=== PATIENT | female | born 1960 | race African-American/Black ===

== ENCOUNTER 2019-11-20 12:48 | Inpatient (IN) ==
[2019-11-20 13:15] LABS: Hematocrit (blood only) 29.9 % (37-47); Hemoglobin 9.5 g/dL (12.0-16.0); Mean Corpuscular Hemoglobin 27.1 pg (25-34); Mean Corpuscular Hgb Conc 31.8 g/dL (32-36); Mean Corpuscular Volume 85.2 fL (80-100); Platelet Count 382 K/uL (130-400); RDW Coefficient of Variation 15.6 % (11.5-14.5); RDW Standard Deviation 48.2 fL (36.4-46.3); Red Blood Count 3.51 M/uL (4.2-5.4); White Blood Count 13.82 K/uL (4.8-10.8)
[2019-11-20] MEDS ORDERED: SODIUM CHLORIDE 0.9% 1000ML 1,000 ML IV SCH (13:15)
[2019-11-20] MEDS ORDERED: levETIRAcetam 1,000 MG in 0.9 % SODIUM CHLORIDE 100 ML IV ONE (13:15)
[2019-11-20 13:20] LABS: iSTAT Creatinine 1.6 mg/dl (0.6-1.3); iSTAT Hemoglobin 9.5 g/dl (12.0-16.0); iSTAT Ionized Calcium 1.21 mmol/l (1.12-1.32); iSTAT Potassium 4.2 mmol/L (3.3-5.0)
--- NOTE | 2019-11-20 13:25 | XRay Report ---
XR chest 1V portable CLINICAL HISTORY: 59 years-old Female presenting with weakness. TECHNIQUE: Portable upright AP view of the chest was obtained. COMPARISON: None. FINDINGS: Atherosclerosis of the aortic arch. Cardiac silhouette top normal in size. Mild pulmonary vascular pr ominence. Elevation of the bilateral hemidiaphragms. No focal opacity. No large effusion or pneumotho rax. Osteopenia may be present. Gaseous distention of large bowel beneath the left hemidiaphragm. IMPRESSION: 1. Mildly low lung volume secondary to elevated hemidiaphragms. 2. Mild volume overload may be present. ACT 112: Negative or not required by law. Electronically signed by: Porfirio Prieto M.D. 11/20/2019 1:24 PM
[2019-11-20 13:30] LABS: Alanine Aminotransferase 18 U/L (12-78); Albumin Level 2.7 gm/dl (3.4-5.0); Aspartate Aminotransferase 21 U/L (15-37); BUN Creatinine Ratio 23.3 (10-20); Blood Urea Nitrogen 42 mg/dl (7-18); Calcium 9.4 mg/dl (8.5-10.1); Carbon Dioxide 24 mmol/L (21-32); Chloride 102 mmol/L (98-107); Est GFR (African American) 34.6; Est GFR (Non-African American) 29.9; Glucose 206 mg/dl (70-99); Magnesium 2.6 mg/dl (1.8-2.4); Potassium 4.2 mmol/L (3.5-5.1); Sodium 136 mmol/L (136-145)
[2019-11-20 13:40] LABS: Albumin Globulin Ratio 0.6 (0.9-2); Alkaline Phosphatase 59 U/L (45-117); Bilirubin,Total 0.6 mg/dl (0.2-1); Globulin 4.2 gm/dl (2.5-4.0); Thyroid Stimulating Hormone 0.878 uIu/ml (0.300-4.500); Total Protein 6.9 gm/dl (6.4-8.2); Troponin I < 0.015 ng/ml (0-0.045)
--- NOTE | 2019-11-20 13:41 | Emergency Department Note ---
Impression & Plan Sepsis, Acute UTI (urinary tract infection), BAHMAN (acute kidney injury), Elevated lactic acid level ED Provider Note NAME: JOSEPH SMITH AGE: 59 SEX: F : 1960 ARRIVES VIA: Ambulance INFORMANT: Patient, ED PROVIDER(S): Ney Del Angel MD Chief Complaint: Altered mental status HPI: Patient does present from [facility]. History is limited secondary to acute mental status and clinical acuity. The patient reportedly was last seen normal around 830 9:00 or did receive her morning medications. The patient apparently did present after being found unresponsive approximately 30 to 45 minutes prior to arrival. In route the patient was hypotensive had a sugar of 210. Patient had a normal heart rate. ROS: ROS is limited secondary to the patient's history of dementia and mental status. Past medical history: Hypertension, hyperlipidemia, seizure disorder, constipation, dementia, and brain tumor status post resection. Surgical history: See below Social history: See below Physical Exam: GENERAL: Mildly ill in appearance, opens eyes to voice. EYE EXAM: Normal conjunctiva. PERRL, no anisocoria and EOM's grossly intact w/o pain. Head: Scabbing to the top portion of the head without any drainage. NECK: Supple, no nuchal rigidity, no adenopathy, non-tender. No signs of meningismus. LUNGS: Clear to auscultation. Normal chest wall mechanics. HEART: NSR, no MRG. ABDOMEN: Abdomen soft, non-tender, normo-active bowel sounds, no masses, no rebound or guarding. BACK: No CVA TTP. SKIN: No rashes and no bruising. UPPER EXTREMITIES: Upper extremities are grossly normal. LOWER EXTREMITIES: Grossly normal, no edema. Stage II sacral ulcer noted. NEURO EXAM: A&O x3, cranial nerves II-XII grossly intact, normal speech, moves all 4 extremities weakly on command. Differential diagnoses: Infection, dehydration, metabolic abnormality, hypo/hyperglycemia, electrolyte disturbance, anemia, hypoxia, cardiac sources, intracerebral event, toxicologic, neurologic, as well as other pathologies. Course: Patient was seen and evaluated the bedside. History was somewhat limited secondary to mental status. She was reassessed additional IV fluids were ordered. The patient did receive a gram of Keppra and Zosyn. I did speak the on-call hospitalist agreed to further evaluate and treat the patient. Patient was admitted to Dr. Gilberto cartwright/ [facility]. EKG: Imaging Studies: Radiology results as stated below per my review in the radiologist's interpretation: XR chest 1V portable CLINICAL HISTORY: 59 years-old Female presenting with weakness. TECHNIQUE: Portable upright AP view of the chest was obtained. COMPARISON: None. FINDINGS: Atherosclerosis of the aortic arch. Cardiac silhouette top normal in size. Mild pulmonary vascular prominence. Elevation of the bilateral hemidiaphragms. No focal opacity. No large effusion or pneumothorax. Osteopenia may be present. Gaseous distention of large bowel beneath the left hemidiaphragm. IMPRESSION: 1. Mildly low lung volume secondary to elevated hemidiaphragms. 2. Mild volume overload may be present. ACT 112: Negative or not required by law. Electronically signed by: Porfirio Prieto M.D. 11/20/2019 1:24 PM Dictated: 11/20/19 1322 Transcribed: 11/20/[address] head/brain wo con CLINICAL HISTORY: Acute change in mental status COMPARISON STUDY: No previous studies for comparison. TECHNIQUE: Axial CT of the brain is performed from the vertex to the skull base. IV contrast was not administered for this examination. A dose lowering technique was utilized adhering to the principles of ALARA. CT DOSE: 1277.12 mGycm FINDINGS: No intra or extra-axial mass lesions are visualized. There is no CT evidence of acute cortical infarction. There is no evidence of midline shift. There is no acute hemorrhage. No calvarial fractures are visualized. There are postsurgical changes of a prior frontal craniotomy. There is bifrontal encephalomalacia, likely postsurgical or posttraumatic. There are scattered white matter hypodensities, likely on a small vessel basis. There is an old lacunar infarct within the left basal ganglia. There is no evidence of pathologic ventricular dilatation. There is no evidence of acute sinusitis IMPRESSION: No acute intracranial findings ACT 112: Negative or not required by law. Electronically signed by: Maxx Ochoa M.D. 11/20/2019 2:59 PM Dictated: 11/20/19 1457 Transcribed: 11/20/191456 Cardiac monitoring: An order was placed for continuous cardiac monitoring. The monitor shows a rate of 79 with sinus rhythm. MDM: Patient was seen in evwi at the bedside. The patient reportedly was last seen normal around 830 9:00. The patient been unresponsive in route but started to talk upon arrival for EMS. The patient was able to give brief commands. The patient was able to move all 4 extremities. The patient's brief was soiled with feces. Patient does have a stage II ulceration to the posterior sacrum. Blood work was obtained along with blood and urine cultures and urinalysis. The patient was given additional IV fluids as she was somewhat hypotensive. Patient was loaded with a gram of Keppra. Patient did respond to IV fluids. The patient's lactate was 4. White count is 13. The patient did have a urinalysis sent. Chest x-ray does not show any ob vious signs of pneumonia. CT the head shows nothing acute. After further review of the CT along with the patient's chart the patient did have a prior history of a brain tumor status post resection. Patient was admitted to the medicine service. Critical Care: I have personally spent 45 minutes of critical care time in direct management of this patient. This includes bedside care, interpretation of diagnostic studies, and testing, discussion with consultants, patient, and family members, and other require inpatient management activities. This 45 minutes is in excess of all separately billable procedures. Past Med/Surg History Medical History (Updated 11/21/19 @ 06:55 by Ney Del Angel MD) Brain tumor CAD (coronary artery disease) Rfgxjae-Mdzdr-Ngvke disease Diabetes mellitus, type II Dyslipidemia HTN (hypertension) Iron deficiency anemia Seizure disorder Surgical History (Updated 11/20/19 @ 16:34 by Aure Spivey PA-C) History of craniotomy Social History (Updated 11/20/19 @ 16:41 by Aure Spievy PA-C) Preferred Language: Tamazight Current Living Situation: Retirement Feels Safe at Home: Yes Smoking Status: Never smoker Hx Alcohol Use: No Hx Substance Use: No Allergies Allergies Allergy/AdvReac Type Severity Reaction Status Date / Time No Known Allergies Allergy Unverified 11/20/19 13:37 Home Meds Home Medications Medication Instructions Recorded Confirmed acetaminophen [Tylenol] 650 mg PO QID PRN 11/20/19 11/20/19 aspirin [Aspirin Low Dose] 81 mg PO QAM 11/20/19 11/20/19 bisacodyl [Dulcolax (bisacodyl)] 10 mg IN DAILY PRN 11/20/19 11/20/19 clopidogrel [Plavix] 75 mg PO QAM 11/20/19 11/20/19 gdxcblmc-[id number] 1 ea PO UD PRN 11/20/19 11/20/19 [Insta-Glucose (with dextrin)] docusate sodium 100 mg PO QAM 11/20/19 11/20/19 ferrous sulfate 325 mg PO QAM 11/20/19 11/20/19 gabapentin 300 mg PO TID 11/20/19 11/20/19 hydrochlorothiazide 25 mg PO QAM 11/20/19 11/20/19 insulin glargine [Lantus Solostar 10 unit SUBCUT QAM 11/20/19 11/20/19 U-100 Insulin] insulin lispro 1 sliding scale dose SUBCUT 11/20/19 11/20/19 USEASDIRECTD levetiracetam [Keppra] 750 mg PO BID 11/20/19 11/20/19 lisinopril 20 mg PO QAM 11/20/19 11/20/19 magnesium hydroxide [Milk of 30 ml PO UD PRN 11/20/19 11/20/19 Magnesia] metformin 1,000 mg PO QAM 11/20/19 11/20/19 metoprolol tartrate [Lopressor] 100 mg PO QAM 11/20/19 11/20/19 multivit,stress formula-zinc 1 tab PO QAM 11/20/19 11/20/19 [Stress Formula with Zinc] multivitamin 1 tab PO QAM 11/20/19 11/20/19 pantoprazole [Protonix] 40 mg PO QAM 11/20/19 11/20/19 polyethylene glycol 3350 17 g PO QAM 11/20/19 11/20/19 simvastatin [Zocor] 40 mg PO HS 11/20/19 11/20/19 Results & Data (ED) Vital Signs Vital Signs - 24 hr 11/20/19 12:52 11/20/19 13:01 11/20/19 13:03 Temperature Temperature Source Pulse Rate 80 80 Pulse Rate [Apical] Pulse Rate from SpO2 Sensor 81 Pulse Rhythm Pulse Strength Respiratory Rate 19 18 Respiratory Effort / Characteristics Respiratory Depth Respiratory Pattern Blood Pressure 86/55 L 97/85 L Blood Pressure [Left Arm] Blood Pressure Mean 63 91 Blood Pressure Mean [Left Arm] Blood Pressure Position Pulse Oximetry 98 97 99 Oxygen Delivery Method Room Air Room Air Room Air Sepsis Recent Fever Within 48 Hours Sepsis New/Unexplained Change in Mental Status Sepsis Action Taken by Nursing 11/20/19 13:13 11/20/19 13:16 11/20/19 13:17 Temperature 37.3 C Temperature Source Oral Pulse Rate 81 78 78 Pulse Rate [Apical] Pulse Rate from SpO2 Sensor Pulse Rhythm Regular Pulse Strength Normal Respiratory Rate 22 19 18 Respiratory Effort / Characteristics Non-Labored Spontaneous Respiratory Depth Normal Respiratory Pattern Regular Blood Pressure 86/55 L 78/50 L 73/50 L Blood Pressure [Left Arm] Blood Pressure Mean 65 64 54 Blood Pressure Mean [Left Arm] Blood Pressure Position Sitting Pulse Oximetry 100 96 96 Oxygen Delivery Method Room Air Room Air Room Air Sepsis Recent Fever Within 48 Hours Yes Sepsis New/Unexplained Change in Mental Status Yes Sepsis Action Taken by Nursing Physician Notified 11/20/19 13:20 11/20/19 13:26 11/20/19 13:28 Temperature Temperature Source Pulse Rate 78 79 Pulse Rate [Apical] Pulse Rate from SpO2 Sensor 77 79 Pulse Rhythm Pulse Strength Respiratory Rate 18 17 Respiratory Effort / Characteristics Respiratory Depth Respiratory Pattern Blood Pressure 82/54 L 81/51 L Blood Pressure [Left Arm] Blood Pressure Mean 66 56 Blood Pressure Mean [Left Arm] Blood Pressure Position Pulse Oximetry 96 98 Oxygen Delivery Method Room Air Room Air Room Air Sepsis Recent Fever Within 48 Hours Sepsis New/Unexplained Change in Mental Status Sepsis Action Taken by Nursing 11/20/19 13:56 11/20/19 14:01 11/20/19 14:15 Temperature Temperature Source Pulse Rate 82 83 81 Pulse Rate [Apical] Pulse Rate from SpO2 Sensor 83 83 81 Pulse Rhythm Pulse Strength Respiratory Rate 17 16 16 Respiratory Effort / Characteristics Respiratory Depth Respiratory Pattern Blood Pressure 101/64 97/61 L 88/53 L Blood Pressure [Left Arm] Blood Pressure Mean 79 80 67 Blood Pressure Mean [Left Arm] Blood Pressure Position Pulse Oximetry 100 100 98 Oxygen Delivery Method Room Air Room Air Room Air Sepsis Recent Fever Within 48 Hours Sepsis New/Unexplained Change in Mental Status Sepsis Action Taken by Nursing 11/20/19 14:30 11/20/19 14:41 11/20/19 14:57 Temperature Temperature Source Pulse Rate 77 78 82 Pulse Rate [Apical] Pulse Rate from SpO2 Sensor 77 82 Pulse Rhythm Pulse Strength Respiratory Rate 15 17 16 Respiratory Effort / Characteristics Respiratory Depth Respiratory Pattern Blood Pressure 70/48 L 84/58 L 99/64 L Blood Pressure [Left Arm] Blood Pressure Mean 57 65 79 Blood Pressure Mean [Left Arm] Blood Pressure Position Pulse Oximetry 98 99 99 Oxygen Delivery Method Room Air Room Air Room Air Sepsis Recent Fever Within 48 Hours Sepsis New/Unexplained Change in Mental Status Sepsis Action Taken by Nursing 11/20/19 15:15 Temperature Temperature Source Pulse Rate Pulse Rate [Apical] 81 Pulse Rate from SpO2 Sensor Pulse Rhythm Pulse Strength Respiratory Rate 18 Respiratory Effort / Characteristics Respiratory Depth Respiratory Pattern Blood Pressure Blood Pressure [Left Arm] 93/65 L Blood Pressure Mean Blood Pressure Mean [Left Arm] 74 Blood Pressure Position Pulse Oximetry 100 Oxygen Delivery Method Sepsis Recent Fever Within 48 Hours Sepsis New/Unexplained Change in Mental Status Sepsis Action Taken by Retirement Medications Current Medication List: was personally reviewed by me Laboratory Data Attestation: I reviewed the patient's lab results. Result diagrams: 11/21/19 05:26 11/21/19 05:26 Lab Results 11/20/19 11/20/19 11/20/19 Range/Units 12:50 12:50 13:07 WBC 13.82 H (4.8-10.8) K/uL RBC 3.51 L (4.2-5.4) M/uL Hgb 9.5 L (12.0-16.0) g/dL POC Hgb 9.5 L (12.0-16.0) g/dl Hct 29.9 L (37-47) % POC Hct 28 L (37-47) % MCV 85.2 (80-100) fL MCH 27.1 (25-34) pg MCHC 31.8 L (32-36) g/dL RDW Std Deviation 48.2 H (36.4-46.3) fL RDW Coeff of Agustín 15.6 H (11.5-14.5) % Plt Count 382 (130-400) K/uL MPV 10.0 (7.4-10.4) fL Immature Gran % (Auto) 0.1 % Neut % (Auto) 84.6 % Lymph % (Auto) 6.4 % Ware % (Auto) 8.8 % Eos % (Auto) 0.0 % Baso % (Auto) 0.1 % Immature Gran # (Auto) 0.02 (0.00-0.02) K/uL Neut # (Auto) 11.69 H (1.4-6.5) K/uL Lymph # (Auto) 0.88 L (1.2-3.4) K/uL Ware # (Auto) 1.22 H (0.11-0.59) K/uL Eos # (Auto) 0.00 (0-0.5) K/uL Baso # (Auto) 0.01 (0-0.2) K/uL Ovalocytes 1+ Echinocytes 1+ POC Sodium 136 (135-144) mmol/L Sodium 136 (136-145) mmol/L POC Potassium 4.2 (3.3-5.0) mmol/L Potassium 4.2 (3.5-5.1) mmol/L POC Chloride 99 L (101-112) mmol/L Chloride 102 (98-107) mmol/L Carbon Dioxide 24 (21-32) mmol/L POC Total CO2 23 L (24-31) mEq/l Anion Gap 10.0 (3-11) POC Anion Gap 19.0 (16-25) mmol/L POC BUN 36 H (7-18) mg/dl BUN 42 H (7-18) mg/dl Creatinine 1.80 H (0.6-1.2) mg/dl POC Creatinine 1.6 H (0.6-1.3) mg/dl Est Cr Clr Drug Dosing Not Reportable Est GFR ( Amer) 34.6 Est GFR (Non-Af Amer) 29.9 BUN/Creatinine Ratio 23.3 H (10-20) Glucose 206 H (70-99) mg/dl POC Glucose (other) 207 H (70-99) mg/dl Lactate (0.4-2.0) mmol/L Calcium 9.4 (8.5-10.1) mg/dl POC Ioniz Calcium Cash 1.21 (1.12-1.32) mmol/l Magnesium 2.6 H (1.8-2.4) mg/dl Total Bilirubin 0.6 (0.2-1) mg/dl AST 21 (15-37) U/L ALT 18 (12-78) U/L Alkaline Phosphatase 59 (45-117) U/L Troponin I < 0.015 (0-0.045) ng/ml Total Protein 6.9 (6.4-8.2) gm/dl Albumin 2.7 L (3.4-5.0) gm/dl Globulin 4.2 H (2.5-4.0) gm/dl Albumin/Globulin Ratio 0.6 L (0.9-2) TSH 0.878 (0.300-4.500) uIu/ml Urine Color Urine Appearance (Clear) Urine pH (4.5-7.5) Ur Specific [place] (1.000-1.030) Urine Protein (Negative) Urine Glucose (UA) (Negative) Urine Ketones (Negative) Urine Blood (Negative) Urine Nitrite (Negative) Urine Bilirubin (Negative) Urine Urobilinogen (Negative) Ur Leukocyte Esterase (Negative) Urine WBC (Auto) (0-5) /hpf Urine RBC (Auto) (0-4) /hpf U Hyaline Cast (Auto) (0-5) /lpf U Epithel Cells (Auto) (0-5) /lpf Urine Bacteria (Auto) (Negative) Nasal Screen MRSA (PCR) (Negative) 11/20/19 11/20/19 11/20/19 Range/Units 13:39 14:00 14:10 WBC (4.8-10.8) K/uL RBC (4.2-5.4) M/uL Hgb (12.0-16.0) g/dL POC Hgb (12.0-16.0) g/dl Hct (37-47) % POC Hct (37-47) % MCV (80-100) fL MCH (25-34) pg MCHC (32-36) g/dL RDW Std Deviation (36.4-46.3) fL RDW Coeff of Agustín (11.5-14.5) % Plt Count (130-400) K/uL MPV (7.4-10.4) fL Immature Gran % (Auto) % Neut % (Auto) % Lymph % (Auto) % Ware % (Auto) % Eos % (Auto) % Baso % (Auto) % Immature Gran # (Auto) (0.00-0.02) K/uL Neut # (Auto) (1.4-6.5) K/uL Lymph # (Auto) (1.2-3.4) K/uL Ware # (Auto) (0.11-0.59) K/uL Eos # (Auto) (0-0.5) K/uL Baso # (Auto) (0-0.2) K/uL Ovalocytes Echinocytes POC Sodium (135-144) mmol/L Sodium (136-145) mmol/L POC Potassium (3.3-5.0) mmol/L Potassium (3.5-5.1) mmol/L POC Chloride (101-112) mmol/L Chloride (98-107) mmol/L Carbon Dioxide (21-32) mmol/L POC Total CO2 (24-31) mEq/l Anion Gap (3-11) POC Anion Gap (16-25) mmol/L POC BUN (7-18) mg/dl BUN (7-18) mg/dl Creatinine (0.6-1.2) mg/dl POC Creatinine (0.6-1.3) mg/dl Est Cr Clr Drug Dosing Est GFR ( Amer) Est GFR (Non-Af Amer) BUN/Creatinine Ratio (10-20) Glucose (70-99) mg/dl POC Glucose (other) (70-99) mg/dl Lactate 4.7 H* (0.4-2.0) mmol/L Calcium (8.5-10.1) mg/dl POC Ioniz Calcium Cash (1.12-1.32) mmol/l Magnesium (1.8-2.4) mg/dl Total Bilirubin (0.2-1) mg/dl AST (15-37) U/L ALT (12-78) U/L Alkaline Phosphatase (45-117) U/L Troponin I (0-0.045) ng/ml Total Protein (6.4-8.2) gm/dl Albumin (3.4-5.0) gm/dl Globulin (2.5-4.0) gm/dl Albumin/Globulin Ratio (0.9-2) TSH (0.300-4.500) uIu/ml Urine Color Dark Yellow Urine Appearance Turbid A (Clear) Urine pH 6.0 (4.5-7.5) Ur Specific [place] 1.015 (1.000-1.030) Urine Protein Trace H (Negative) Urine Glucose (UA) Negative (Negative) Urine Ketones Trace H (Negative) Urine Blood 3+ H (Negative) Urine Nitrite Negative (Negative) Urine Bilirubin Negative (Negative) Urine Urobilinogen Negative (Negative) Ur Leukocyte Esterase 3+ H (Negative) Urine WBC (Auto) >30 H (0-5) /hpf Urine RBC (Auto) 5-10 H (0-4) /hpf U Hyaline Cast (Auto) 5-10 H (0-5) /lpf U Epithel Cells (Auto) >30 H (0-5) /lpf Urine Bacteria (Auto) 4+ H (Negative) Nasal Screen MRSA (PCR) Negative (Negative) 11/20/19 Range/Units 15:46 WBC (4.8-10.8) K/uL RBC (4.2-5.4) M/uL Hgb (12.0-16.0) g/dL POC Hgb (12.0-16.0) g/dl Hct (37-47) % POC Hct (37-47) % MCV (80-100) fL MCH (25-34) pg MCHC (32-36) g/dL RDW Std Deviation (36.4-46.3) fL RDW Coeff of Agustín (11.5-14.5) % Plt Count (130-400) K/uL MPV (7.4-10.4) fL Immature Gran % (Auto) % Neut % (Auto) % Lymph % (Auto) % Ware % (Auto) % Eos % (Auto) % Baso % (Auto) % Immature Gran # (Auto) (0.00-0.02) K/uL Neut # (Auto) (1.4-6.5) K/uL Lymph # (Auto) (1.2-3.4) K/uL Ware # (Auto) (0.11-0.59) K/uL Eos # (Auto) (0-0.5) K/uL Baso # (Auto) (0-0.2) K/uL Ovalocytes Echinocytes POC Sodium (135-144) mmol/L Sodium (136-145) mmol/L POC Potassium (3.3-5.0) mmol/L Potassium (3.5-5.1) mmol/L POC Chloride (101-112) mmol/L Chloride (98-107) mmol/L Carbon Dioxide (21-32) mmol/L POC Total CO2 (24-31) mEq/l Anion Gap (3-11) POC Anion Gap (16-25) mmol/L POC BUN (7-18) mg/dl BUN (7-18) mg/dl Creatinine (0.6-1.2) mg/dl POC Creatinine (0.6-1.3) mg/dl Est Cr Clr Drug Dosing Est GFR ( Amer) Est GFR (Non-Af Amer) BUN/Creatinine Ratio (10-20) Glucose (70-99) mg/dl POC Glucose (other) (70-99) mg/dl Lactate 4.0 H* (0.4-2.0) mmol/L Calcium (8.5-10.1) mg/dl POC Ioniz Calcium Cash (1.12-1.32) mmol/l Magnesium (1.8-2.4) mg/dl Total Bilirubin (0.2-1) mg/dl AST (15-37) U/L ALT (12-78) U/L Alkaline Phosphatase (45-117) U/L Troponin I (0-0.045) ng/ml Total Protein (6.4-8.2) gm/dl Albumin (3.4-5.0) gm/dl Globulin (2.5-4.0) gm/dl Albumin/Globulin Ratio (0.9-2) TSH (0.300-4.500) uIu/ml Urine Color Urine Appearance (Clear) Urine pH (4.5-7.5) Ur Specific [place] (1.000-1.030) Urine Protein (Negative) Urine Glucose (UA) (Negative) Urine Ketones (Negative) Urine Blood (Negative) Urine Nitrite (Negative) Urine Bilirubin (Negative) Urine Urobilinogen (Negative) Ur Leukocyte Esterase (Negative) Urine WBC (Auto) (0-5) /hpf Urine RBC (Auto) (0-4) /hpf U Hyaline Cast (Auto) (0-5) /lpf U Epithel Cells (Auto) (0-5) /lpf Urine Bacteria (Auto) (Negative) Nasal Screen MRSA (PCR) (Negative) Administered Medications Heparin Sodium (Porcine) (Heparin Sodium (Porcine)) 5,000 units SQ Q8 LATISHA Stop: 12/20/19 21:59 Last Admin: 11/21/19 05:50 Dose: 5,000 units Documented by: [id number] Cosigned by: [id number] Admin: 11/20/19 20:20 Dose: 5,000 units Documented by: [id number] Cosigned by: [id number] Sodium Chloride (Nss 1000ml) 1,000 mls @ 125 mls/hr IV .Q8H LATISHA Stop: 11/21/19 09:33 Last Admin: 11/21/19 00:58 Dose: 125 mls/hr Documented by: [id number] Infusion: 11/21/19 00:58 Dose: 125 mls/hr Documented by: [id number] Admin: 11/20/19 17:48 Dose: 125 mls/hr Documented by: [id number] Piperacillin Sod/Tazobactam (Sod 3.375 gm/ Dextrose) 115 mls @ 28.75 mls/hr IV Q8H LATISHA; Protocol Stop: 11/22/19 17:59 Last Infusion: 11/21/19 05:29 Dose: 0 mls/hr Documented by: [id number] Admin: 11/21/19 00:58 Dose: 28.8 mls/hr Documented by: [id number] Infusion: 11/21/19 00:29 Dose: 0 mls/hr Documented by: [id number] Admin: 11/20/19 20:06 Dose: 28.8 mls/hr Documented by: [id number] Daptomycin 250 mg/ Syringe 5 mls @ 2.5 mls/min IV Q24H LATISHA; Protocol Stop: 11/22/19 19:29 Last Admin: 11/20/19 20:20 Dose: 2.5 mls/min Documented by: [id number] Insulin Aspart (Novolog Flexpen) 0 units SC Q6 LATISHA Stop: 12/21/19 00:00 Last Admin: 11/21/19 05:46 Dose: Not Given Documented by: [id number] Cosigned by: [id number] Admin: 11/21/19 00:49 Dose: 1 units Documented by: [id number] Cosigned by: [id number] Insulin Glargine (Lantus Solostar Pen) 5 units SC BID LATISHA Stop: 12/20/19 21:44 Last Admin: 11/20/19 23:35 Dose: Not Given Documented by: [id number] Discontinued Medications Levetiracetam 1,000 mg/ Sodium (Chloride) 110 mls @ 440 mls/hr IV NOW ONE Stop: 11/20/19 13:29 Last Infusion: 11/20/19 13:56 Dose: 0 mls/hr Documented by: [id number] Admin: 11/20/19 13:28 Dose: 440 mls/hr Documented by: [id number] Sodium Chloride (Nss 1000ml) 1,000 mls @ 999 mls/hr IV .Q1H1M LATISHA Stop: 11/20/19 14:15 Last Infusion: 11/20/19 14:29 Dose: 0 mls/hr Documented by: [id number] Admin: 11/20/19 13:27 Dose: 999 mls/hr Documented by: [id number] Piperacillin Sod/Tazobactam Sod (Zosyn) 4.5 gm in 120 mls @ 240 mls/hr IV NOW ONE Stop: 11/20/19 14:18 Last Infusion: 11/20/19 14:42 Dose: 0 mls/hr Documented by: [id number] Admin: 11/20/19 14:02 Dose: 240 mls/hr Documented by: [id number] Sodium Chloride (Nss 1000ml) 1,000 mls @ 999 mls/hr IV .Q1H1M ONE Stop: 11/20/19 15:41 Last Infusion: 11/20/19 15:49 Dose: 0 mls/hr Documented by: [id number] Admin: 11/20/19 14:46 Dose: 999 mls/hr Documented by: [id number] Sodium Chloride (Nss 1000ml) 500 mls @ 999 mls/hr IV .Q31M ONE Stop: 11/20/19 16:43 Last Infusion: 11/20/19 16:34 Dose: 0 mls/hr Documented by: [id number] Admin: 11/20/19 16:00 Dose: 999 mls/hr Documented by: [id number] Insulin Aspart (Novolog Flexpen) 0 units SC ACHS LATISHA Stop: 12/20/19 17:59 Last Admin: 11/20/19 19:59 Dose: 2 units Documented by: [id number] Cosigned by: [id number] Miscellaneous (Patient's Height And/Or Weight Needed) 1 ea N/A Q15M LATISHA Stop: 11/20/19 18:16 Last Admin: 11/20/19 20:09 Dose: 1 ea Documented by: [id number] Admin: 11/20/19 20:09 Dose: 1 ea Documented by: [id number] Admin: 11/20/19 20:09 Dose: 1 ea Documented by: [id number] Admin: 11/20/19 20:03 Dose: 1 ea Documented by: [id number] Blood Pressure Blood Pressure Findings: Low blood pressure Blood Pressure Disposition: further management by hospitalist Discharge Plan Visit Data *Final* Discharge Date/Time: 11/20/19 16:54 Chief Complaint: Unresponsive ED Provider: Ney Del Angel Discharge Problem: Sepsis, Acute UTI (urinary tract infection), BAHMAN (acute kidney injury), Elevated lactic acid level Patient Disposition: Admitted As Inpatient Discharge Instructions Interventions: ED Discharge Assessment Last Done: 11/20/19 16:54 Discharge Problem: Sepsis Qualifiers: Sepsis type: sepsis due to unspecified organism Sepsis acute organ dysfunction status: unspecified Qualified Code(s): A41.9 - Sepsis, unspecified organism
[2019-11-20] MEDS ORDERED: PIPERACILLIN/TAZOBACTAM 4.5 GM/120 ML BAG IV ONE (13:49)
[2019-11-20] MEDS ORDERED: PIPERACILL/TAZOBAC CONSULT ACTIVE PRN (13:49)
[2019-11-20 13:54] LABS: Basophils # (auto) 0.01 K/uL (0-0.2); Basophils % (auto) 0.1 %; Echinocytes 1+; Immature Granulocytes # (auto) 0.02 K/uL (0.00-0.02); Immature Granulocytes % (auto) 0.1 %; Lymphocytes # (auto) 0.88 K/uL (1.2-3.4); Lymphocytes % (auto) 6.4 %; Monocytes # (auto) 1.22 K/uL (0.11-0.59); Monocytes % (auto) 8.8 %; Neutrophils # (auto) 11.69 K/uL (1.4-6.5); Neutrophils % (auto) 84.6 %; Ovalocytes 1+
[2019-11-20] MEDS ORDERED: SODIUM CHLORIDE 0.9% 1000ML 1,000 ML IV ONE (14:41)
--- NOTE | 2019-11-20 15:00 | CT Scan Report ---
CT head/brain wo con CLINICAL HISTORY: Acute change in mental status COMPARISON STUDY: No previous studies for comparison. TECHNIQUE: Axial CT of the brain is performed from the vertex to the skull base. IV contrast was not administered for this examination. A dose lowering technique was utilized adhering to the principles of ALARA. CT DOSE: 1277.12 mGycm FINDINGS: No intra or extra-axial mass lesions are visualized. There is no CT evidence of acute cortical infarc tion. There is no evidence of midline shift. There is no acute hemorrhage. No calvarial fractures ar e visualized. There are postsurgical changes of a prior frontal craniotomy. There is bifrontal encephalomalacia, li minor postsurgical or posttraumatic. There are scattered white matter hypodensities, likely on a small vessel basis. There is an old lacunar infarct within the left basal ganglia. There is no evidence of pathologic ventricular dilatation. There is no evidence of acute sinusitis IMPRESSION: No acute intracranial findings ACT 112: Negative or not required by law. Electronically signed by: Maxx Ochoa M.D. 11/20/2019 2:59 PM
[2019-11-20 15:01] LABS: Appearance Urine Turbid (Clear); Bacteria Urine Automated 4+ (Negative); Bilirubin Urine Negative (Negative); Blood Urine 3+ (Negative); Color Urine Dark Yellow; Epithelial Cell Urine Auto >30 /lpf (0-5); Glucose Urine UA Negative (Negative); Ketones Urine Trace (Negative); Leukocyte Esterase Urine 3+ (Negative); Nitrite Urine Negative (Negative); Protein Urine Trace (Negative); Specific Gravity Urine 1.015 (1.000-1.030); Urobilinogen Urine Negative (Negative); WBC Urine Automated >30 /hpf (0-5)
[2019-11-20] MEDS ORDERED: INFLUENZA VIRUS QUAD VACCINE 0.5 ML SYR IM ONE (15:26)
[2019-11-20] MEDS ORDERED: INFLUENZA ADMINISTRATION CHARGE ONE (15:26)
[2019-11-20] MEDS ORDERED: PNEUMOCOCCAL POLYSACCHARIDES 25 MCG/0.5 ML VIAL/SYR IM ONE (15:26)
[2019-11-20] MEDS ORDERED: PNEUMOCOCCAL ADMINISTRATION CHARGE ONE (15:26)
[2019-11-20] MEDS ORDERED: SODIUM CHLORIDE 0.9% 1000ML 500 ML IV ONE (16:13)
[2019-11-20] MEDS ORDERED: DAPTOMYCIN CONSULT ACTIVE PRN (16:17)
--- NOTE | 2019-11-20 16:28 | History & Physical Report ---
Date of Service November 20, 2019 Assessment & Plan (1) Sepsis: Pt is 59 y/o F with PMH HTN, DM II, CAD, seizure disorder, h/o brain tumor s/p surgery, Charcot joint, ambulatory dysfunction, dementia, iron deficiency anemia, HLD presented to ER from [facility] with complaint of unresponsiveness. History obtained from ER staff and [facility] staff and report pt at baseline this morning and at noon checked and pt unresponsive with BSG 200, BP 103/80, 86% on room air, reported normal pulse, afebrile. Report when EMS arrived patient's SBP's were in the 60s. Staff denies any recent fevers, cough, SOB. Recently treated for LLE cellulitis with Keflex. Upon ER arrival patient starting to be more responsive. Reported in ER patient had large amount of stool in her briefs. Patient afebrile, PA: 80, RR: 19, BP 86/55, 98% on room air. WBC: 13, lactate: 4.7, UA: 3+leuk, remaining UA pendin g, negative troponin Sepsis, possible urinary source. Ulcers do not appear infected at this time. DDX: infectious diarrhea -BP responding to NSS with total of 2500ml NSS with BP 93/65, P: 80 -In ER given Zosyn -Admit PCU with close monitoring, if patient's pressures were to drop with IVF consider transfer to ICU -Blood cultures pending, urine culture pending, stool cultures pending, C. difficile pending -Repeat lactate: 4.0, trend lactic acid -IVF -Zosyn, daptomycin -CBC, BMP in a.m. (2) Altered mental state: Probable metabolic encephalopathy secondary to sepsis. DDX: Seizure CT head: No acute changes -Monitor closely, may need to consider further workup or neurology consult if no improvement or worsening -NPO for now (3) Renal insufficiency: BUN: 42, Cr: 1.9, GFR: 29 Unsure of pt's baseline renal functions -IVF -Monitor renal functions -Avoid nephrotoxic agents when possible (4) Sacral ulcer: Noted superficial sacral ulcer without surrounding erythema -Wound care consult (5) Seizure disorder: History seizure disorder. Unsure when last seizure activity -Continue Keppra (6) CAD (coronary artery disease): Unsure of history. CAD listed on pt's [facility] records -Obtain EKG -Continue aspirin, Plavix -Hold statin while on daptomycin (7) Diabetes mellitus, type II: -Metformin, home insulin -Monitor BSGs -NovoLog sliding scale per protocol -A1c in a.m. (8) HTN (hypertension): Currently hypotensive -Hold lisinopril, HCTZ -Continue metoprolol with holding parameters (9) Iron deficiency anemia: H/H: 9.5. Unsure of pt's baseline -Continue iron supplement -Monitor H&H DVT Prophylaxis -Heparin SQ Full Code as per pt's [facility] records and discussion with [facility] staff Follows with Dr Rios at [facility] for routine care Pt was seen and care coordinated with Dr Macias. See addendum History of Present Illness Chief Complaint: Unresponsive Primary Care Provider: Omari Rios Pt is 59 y/o F with PMH HTN, DM II, CAD, seizure disorder, h/o brain tumor s/p surgery, Charcot joint, ambulatory dysfunction, dementia, iron deficiency anemia, HLD presented to ER from [facility] with complaint of unresponsiveness. History obtained from ER staff and [facility] staff. [facility] staff reports patient was at her baseline mental status this morning and had her morning medicines. Reports went to check on patient at noon today and found patient was unresponsive reports vitals at that time BP 103/80, 86% on room air, reported normal pulse, afebrile. Report when EMS arrived patient's SBP's were in the 60s. Staff report patient has been afebrile and without any cough or noted shortness of breath. Staff report patient new to their facility since 10/2019 as patient's sister could no longer care for her. Reports patient has been treated for left lower extremity cellulitis since 10/2019 with Keflex with improvement. Reports chronic wounds to her feet. [facility] staff deny any other noted recent vomiting, diarrhea or rashes. Pt with ambulatory dysfunction secondary to Charcot joint. Unable to obtain pt's FH. Outpatient [facility] chart report no history of tobacco use, ETOH use or drug use. Upon ER arrival patient starting to be more responsive. Patient afebrile, PA: 80, RR: 19, BP 86/55, 98% on room air. Allergies Allergy/AdvReac Type Severity Reaction Status Date / Time No Known Allergies Allergy Unverified 11/20/19 13:37 Home Medications Home Medications Medication Instructions Recorded Confirmed Type acetaminophen [Tylenol] 650 mg PO QID PRN 11/20/19 11/20/19 History aspirin [Aspirin Low Dose] 81 mg PO QAM 11/20/19 11/20/19 History bisacodyl [Dulcolax (bisacodyl)] 10 mg [place] DAILY PRN 11/20/19 11/20/19 History clopidogrel [Plavix] 75 mg PO QAM 11/20/19 11/20/19 History cwyavter-covhuzi-rilfmtp 1 ea PO UD PRN 11/20/19 11/20/19 History [Insta-Glucose (with dextrin)] docusate sodium 100 mg PO QAM 11/20/19 11/20/19 History ferrous sulfate 325 mg PO QAM 11/20/19 11/20/19 History gabapentin 300 mg PO TID 11/20/19 11/20/19 History hydrochlorothiazide 25 mg PO QAM 11/20/19 11/20/19 History insulin glargine [Lantus Solostar 10 unit SUBCUT QAM 11/20/19 11/20/19 History U-100 Insulin] insulin lispro 1 sliding scale dose SUBCUT 11/20/19 11/20/19 History USEASDIRECTD levetiracetam [Keppra] 750 mg PO BID 11/20/19 11/20/19 History lisinopril 20 mg PO QAM 11/20/19 11/20/19 History magnesium hydroxide [Milk of 30 ml PO UD PRN 11/20/19 11/20/19 History Magnesia] metformin 1,000 mg PO QAM 11/20/19 11/20/19 History metoprolol tartrate [Lopressor] 100 mg PO QAM 11/20/19 11/20/19 History multivit,stress formula-zinc 1 tab PO QAM 11/20/19 11/20/19 History [Stress Formula with Zinc] multivitamin 1 tab PO QAM 11/20/19 11/20/19 History pantoprazole [Protonix] 40 mg PO QAM 11/20/19 11/20/19 History polyethylene glycol 3350 17 g PO QAM 11/20/19 11/20/19 History simvastatin [Zocor] 40 mg PO HS 11/20/19 11/20/19 History Past Med/Surg History Medical History Brain tumor CAD (coronary artery disease) Vbduiuz-Ceqot-Klado disease Diabetes mellitus, type II Dyslipidemia HTN (hypertension) Iron deficiency anemia Seizure disorder Surgical History History of craniotomy Social History Preferred Language: Kinyarwanda Communication Ability: Impaired Current Living Situation: Skilled Nursing Feels Safe at Home: Yes Smoking Status: Never smoker Hx Alcohol Use: No Hx Substance Use: No Review of Systems Review of Systems: All systems reviewed & are unremarkable except as noted in HPI & below Physical Exam Physical Exam: General: lethargic, no acute distress, overweight Head: normocephalic, atraumatic Eyes: PERRL, EOM's intact, conjunctiva non-injected, anicteric ENT: normal inspection external ears, nose, mucous membranes dry Neck: supple, trachea midline Lungs: clear, no respiratory distress, no wheezing/rhonchi/rales CV: RRR, no murmur, no pretibial edema Abd: normal BS, soft, non-tender to palpation Ext: +skin discoloration consistent with venous stasis to bilateral lower legs without erythema or warmth, no calf tenderness Neuro: Pt lethargic, does awaken to voice and is alert to self only. 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 bilaterally Skin: warm, dry; bilateral feet with dry cracked skin and superficial ulcers without surrounding erythema, sacrum with superficial ulcer without surrounding erythema Results & Data Results & Data ([facility]) Vital Signs (Past 12 Hours) Vital Signs Temp Pulse Pulse Resp BP BP Pulse Ox 11/20/19 15:15 81 18 93/65 L 100 11/20/19 14:57 82 16 99/64 L 99 11/20/19 14:41 78 17 84/58 L 99 11/20/19 14:30 77 15 70/48 L 98 11/20/19 14:15 81 16 88/53 L 98 11/20/19 14:01 83 16 97/61 L 100 11/20/19 13:56 82 17 101/64 100 11/20/19 13:26 79 17 81/51 L 98 11/20/19 13:20 78 18 82/54 L 96 11/20/19 13:17 78 18 73/50 L 96 11/20/19 13:16 78 19 78/50 L 96 11/20/19 13:13 37.3 C 81 22 86/55 L 100 11/20/19 13:03 99 11/20/19 13:01 80 18 97/85 L 97 11/20/19 12:52 80 19 86/55 L 98 Laboratory Results Short CBC 11/20/19 11/20/19 Range/Units 12:50 13:39 WBC 13.82 H (4.8-10.8) K/uL Hgb 9.5 L (12.0-16.0) g/dL Hct 29.9 L (37-47) % Plt Count 382 (130-400) K/uL Lactate 4.7 H* (0.4-2.0) mmol/L BMP 11/20/19 12:50 Sodium 136 Potassium 4.2 Chloride 102 Carbon Dioxide 24 BUN 42 H Creatinine 1.80 H Glucose 206 H Calcium 9.4 Cardiac Enzymes 11/20/19 Range/Units 12:50 Troponin I < 0.015 (0-0.045) ng/ml Liver Function 11/20/19 Range/Units 12:50 Total Bilirubin 0.6 (0.2-1) mg/dl AST 21 (15-37) U/L ALT 18 (12-78) U/L Alkaline Phosphatase 59 (45-117) U/L Albumin 2.7 L (3.4-5.0) gm/dl Urine 11/20/19 Range/Units 14:10 Urine Color Dark Yellow Urine Appearance Turbid A (Clear) Urine pH 6.0 (4.5-7.5) Ur Specific [place] 1.015 (1.000-1.030) Urine Protein Trace H (Negative) Urine Glucose (UA) Negative (Negative) Diagnostic Findings CT HEAD: IMPRESSION: No acute intracranial findings CXR: IMPRESSION: 1. Mildly low lung volume secondary to elevated hemidiaphragms. 2. Mild volume overload may be present. Code Status & VTE Plan VTE Prophylaxis Plan VTE Prophylaxis will be ordered: Yes Supervising Physician Co-Signing Physician Notes Pt was seen and examined. Agreed with Aure LAM exam, assessment and plan. 59 y/o F with PMH HTN, DM II, CAD, seizure disorder, h/o brain tumor s/p surgery, Charcot joint, ambulatory dysfunction, dementia, iron deficiency anemia, HLD was brought from [facility] to the ER after found unresponsiveness. History is limited since patient is very sleepy. [facility] staff said that pt was at her baseline mental status this morning until she was found unresponsive around noon. Staff at [facility] denies any fever, recurrent diarrhea and SOB. In the ER she was hypotensive with BP dropped in the 73/50. CT head showed no acute intracranial abnormality. CXR showed mildly low lung volume secondary to elevated hemidiaphragms and mild volume overload may be present. Lab showed elevated WBC and lactic acid. UA collected in the ER was positive for leukocytes and bacteria. Received IV NSS and IV abx with Zosyn. Will give additional IVF and will continue IV Zosyn and add Daptomycin. Blood cx and urine cx collected in the ER, will follow. Will monitor BP and if no improvement after IVF, will consider to start on pressor. Monitor CBC and lactic acid. Continue monitor closely in PCU for now. MD Gilberto
[2019-11-20] MEDS ORDERED: CONSULT PHARMACY STA (17:34)
[2019-11-20] MEDS ORDERED: CARBOHYDRATES FOR HYPOGLYCEMIA PO PRN (17:34)
[2019-11-20] MEDS ORDERED: GLUCAGON FOR INJ 1 MG VIAL SQ PRN (17:34)
[2019-11-20] MEDS ORDERED: GLUCOSE 40% GEL 15 GM TUBE PO PRN (17:34)
[2019-11-20] MEDS ORDERED: DEXTROSE 50% 50 ML SYRINGE IV PRN (17:34)
[2019-11-20] MEDS ORDERED: GLUCOSE 10 TABS/TUBE PO PRN (17:34)
[2019-11-20] MEDS: SODIUM CHLORIDE 0.9% 1000ML 1,000 ML IV SCH (17:48)
[2019-11-20] MEDS ORDERED: INSULIN ASPART 100 UNITS/ML 3 ML PEN SC SCH (18:00)
[2019-11-20] MEDS: PATIENT'S HEIGHT AND/OR WEIGHT NEEDED SCH ×2 (20:03→20:09)
[2019-11-20] MEDS: PIPERACILLIN/TAZOBACTAM 3.375 GM in DEXTROSE 5% 100 ML IV SCH (20:06)
[2019-11-20] MEDS ORDERED: Nursing to Pharmacy Communication ONE (20:11)
[2019-11-20] MEDS: HEPARIN SOD 5,000 UNIT/0.5 ML VIAL SQ SCH (20:20)
[2019-11-20] MEDS: DAPTOmycin 250 MG in SYRINGE 0 ML IV SCH (20:20)
[2019-11-20] MEDS: INSULIN GLARGINE SOLOSTAR 100 UNITS/ML 3 ML PEN SC SCH (23:35)
[2019-11-21] MEDS ORDERED: INSULIN ASPART 100 UNITS/ML 3 ML PEN SC SCH
[2019-11-21] MEDS: INSULIN ASPART 100 UNITS/ML 3 ML PEN SC SCH ×5 (00:49→20:33)
[2019-11-21] MEDS: SODIUM CHLORIDE 0.9% 1000ML 1,000 ML IV SCH (00:58)
[2019-11-21] MEDS: PIPERACILLIN/TAZOBACTAM 3.375 GM in DEXTROSE 5% 100 ML IV SCH ×3 (00:58→17:14)
[2019-11-21] MEDS: HEPARIN SOD 5,000 UNIT/0.5 ML VIAL SQ SCH ×3 (05:50→21:23)
[2019-11-21 05:55] LABS: Hematocrit (blood only) 26.6 % (37-47); Hemoglobin 8.5 g/dL (12.0-16.0); Mean Corpuscular Hemoglobin 27.2 pg (25-34); Mean Corpuscular Volume 85.3 fL (80-100); Mean Platelet Volume 9.8 fL (7.4-10.4); Platelet Count 297 K/uL (130-400); RDW Coefficient of Variation 15.5 % (11.5-14.5); RDW Standard Deviation 48.8 fL (36.4-46.3); Red Blood Count 3.12 M/uL (4.2-5.4); White Blood Count 11.52 K/uL (4.8-10.8)
[2019-11-21 06:24] LABS: BUN Creatinine Ratio 39.7 (10-20); Calcium 8.5 mg/dl (8.5-10.1); Est GFR (African American) 46.9; Est GFR (Non-African American) 40.5; Potassium 3.5 mmol/L (3.5-5.1)
[2019-11-21 06:32] LABS: Basophils # (auto) 0.01 K/uL (0-0.2); Basophils % (auto) 0.1 %; Dohle Bodies 1+; Eosinophils # (auto) 0.01 K/uL (0-0.5); Eosinophils % (auto) 0.1 %; Immature Granulocytes # (auto) 0.06 K/uL (0.00-0.02); Immature Granulocytes % (auto) 0.5 %; Lymphocytes # (auto) 0.85 K/uL (1.2-3.4); Lymphocytes % (auto) 7.4 %; Monocytes # (auto) 0.81 K/uL (0.11-0.59); Neutrophils # (auto) 9.78 K/uL (1.4-6.5); Neutrophils % (auto) 84.9 %; Ovalocytes 1+
[2019-11-21] MEDS: METOPROLOL TARTRATE 100 MG TAB PO SCH (08:03)
[2019-11-21] MEDS: FERROUS SULFATE 325 MG TAB PO SCH (08:03)
[2019-11-21] MEDS: PANTOprazole 40 MG TAB PO SCH (08:03)
[2019-11-21] MEDS: ASPIRIN 81 MG ECTAB PO SCH (08:03)
[2019-11-21] MEDS: CLOPIDOGREL BISULFATE 75 MG TAB PO SCH (08:03)
[2019-11-21] MEDS: levETIRAcetam 250 MG TAB PO SCH ×2 (08:03→17:14)
[2019-11-21] MEDS: INSULIN GLARGINE SOLOSTAR 100 UNITS/ML 3 ML PEN SC SCH ×2 (08:04→20:34)
--- NOTE | 2019-11-21 10:47 | Electrocardiogram Report ---
Test Reason : Blood Pressure : / mmHG Vent. Rate : 081 BPM Atrial Rate : 081 BPM P-R Int : 192 ms QRS Dur : 092 ms QT Int : 390 ms P-R-T Axes : 049 042 083 degrees QTc Int : 453 ms Poor data quality, interpretation may be adversely affected Normal sinus rhythm Low voltage QRS Borderline ECG No previous ECGs available Confirmed by Dean Mix ([id number]) on 11/21/2019 10:47:10 AM [facility] [place] [facility] Confirmed By:Dean Mix
--- NOTE | 2019-11-21 10:53 | Infectious Disease Consult ---
Date of Consultation November 21, 2019 Assessment & Plan (1) Acute UTI (urinary tract infection): follow cultures, if blood cultures/urine culture without gpc, will stop dapto (likely in am). will need 7 days for uti, final recs will depend on culture results. History of Present Illness Attending Physician: Yakelin Macias MD pt admitted from sn[facility] with change in mental status, lehtargic on my exam but answers yes no questions. denies abd pain, no cp, no f/c. was found in ER to have wbc 13, improved to 11 today. on zosyn and dapto emperically, UA >30 wbc, +4 bacteria. creat 1.4 urine culture growing gnr. blood cultures pending, cxr negative. CT head negative. ID consulted for dapto approval. Allergies Allergy/AdvReac Type Severity Reaction Status Date / Time No Known Allergies Allergy Unverified 11/20/19 13:37 Home Medications Home Medications Medication Instructions Recorded Confirmed Type acetaminophen [Tylenol] 650 mg PO QID PRN 11/20/19 11/20/19 History aspirin [Aspirin Low Dose] 81 mg PO QAM 11/20/19 11/20/19 History bisacodyl [Dulcolax (bisacodyl)] 10 mg [place] DAILY PRN 11/20/19 11/20/19 History clopidogrel [Plavix] 75 mg PO QAM 11/20/19 11/20/19 History edusqkqz-dbmneds-vtmnpjg 1 ea PO UD PRN 11/20/19 11/20/19 History [Insta-Glucose (with dextrin)] docusate sodium 100 mg PO QAM 11/20/19 11/20/19 History ferrous sulfate 325 mg PO QAM 11/20/19 11/20/19 History gabapentin 300 mg PO TID 11/20/19 11/20/19 History hydrochlorothiazide 25 mg PO QAM 11/20/19 11/20/19 History insulin glargine [Lantus Solostar 10 unit SUBCUT QAM 11/20/19 11/20/19 History U-100 Insulin] insulin lispro 1 sliding scale dose SUBCUT 11/20/19 11/20/19 History USEASDIRECTD levetiracetam [Keppra] 750 mg PO BID 11/20/19 11/20/19 History lisinopril 20 mg PO QAM 11/20/19 11/20/19 History magnesium hydroxide [Milk of 30 ml PO UD PRN 11/20/19 11/20/19 History Magnesia] metformin 1,000 mg PO QAM 11/20/19 11/20/19 History metoprolol tartrate [Lopressor] 100 mg PO QAM 11/20/19 11/20/19 History multivit,stress formula-zinc 1 tab PO QAM 11/20/19 11/20/19 History [Stress Formula with Zinc] multivitamin 1 tab PO QAM 11/20/19 11/20/19 History pantoprazole [Protonix] 40 mg PO QAM 11/20/19 11/20/19 History polyethylene glycol 3350 17 g PO QAM 11/20/19 11/20/19 History simvastatin [Zocor] 40 mg PO HS 11/20/19 11/20/19 History Patient History Medical History Brain tumor CAD (coronary artery disease) Imioydg-Zbuph-Bqjxm disease Diabetes mellitus, type II Dyslipidemia HTN (hypertension) Iron deficiency anemia Seizure disorder Surgical History History of craniotomy Social History Preferred Language: [place] Current Living Situation: [facility] Feels Safe at Home: Yes Smoking Status: Never smoker Hx Alcohol Use: No Hx Substance Use: No Review of Systems Review of Systems: All systems reviewed & are unremarkable except as noted in HPI & below Physical Exam Constitutional: WD/WN, vitals as above Eyes: PERRL, conjunctivae normal, anicteric sclerae ENMT: external ear and nose normal, oropharynx normal Neck: normal visual inspection Respiratory: normal respiratory effort, lungs clear to auscultation Cardiovascular: RRR, no murmur, no edema Gastrointestinal (Abdomen): normal bowel sounds, soft, nontender, no hepatosplenomegaly Musculoskeletal: Head/Neck/Chest: normocephalic and head atraumatic Skin: no rashes, warm and dry Psychiatric: Orientation: alert and cooperative lethargic Results & Data ([place]) Vital Signs (Past 12 Hours) Vital Signs Temp Pulse Resp BP Pulse Ox 11/21/19 07:00 37.5 C 18 92/62 L 95 11/21/19 04:18 36.9 C 74 18 87/55 L 96 11/20/19 23:20 36.7 C 81 18 86/53 L 97 Laboratory Results Microbiology 11/20/19 14:10 Urine,Straight Cath Urine Culture - Preliminary Gram negative bacilli PG Care Time/CCT Total # of Minutes Spent Total Time Spent with Patient: Total time spent is greater than 50% in coordination of care (as documented) at patient's floor/unit and/or counseling patient: Coding Level of Care Code 34075 Inpt Consult Level 2 Diagnoses Acute UTI (urinary tract infection) N39.0
--- NOTE | 2019-11-21 12:10 | Hospitalist Progress Note ---
Date of Service November 21, 2019 Assessment & Plan (1) Sepsis: (2) UTI (urinary tract infection): Present on admission with unresponsive with Leukocytosis, elevated lactic acid and hypotension CXR showed no focal opacity and no large effusion or pneumothorax Urine cx positive for gram negative bacilli lactic acid normalized and WBC trending down Received IV hydration, will decrease IVF Was starting on IV Zosyn and Dapto Will continue IV Zosyn than d/c the dapto in am Blood cx pending ID on board Blood pressure has been stable Clinically stable (3) Altered mental state: Possible related to metabolic encephalopathy secondary to sepsis. CT head showed no acute changes No focal neuro deficit Clinically improves (4) Renal insufficiency: Acute Kidney Injury Possible related to dehydration due to sepsis BUN: 42, Cr: 1.9, GFR: 29 on admission, Unsure of pt's baseline renal functions Received IVF Creatinine improved to 1.4 today Continue monitor renal functions Avoid nephrotoxic agents when possible (5) Sacral ulcer: Noted superficial sacral ulcer without surrounding erythema Wound care on board Continue daily wound care (6) Seizure disorder: History seizure disorder. Unsure when last seizure activity Continue Keppra Continue seizure protocol (7) CAD (coronary artery disease): Continue aspirin, Plavix Will resume statin since will d/c Dapto in am Denies any chest pain (8) Diabetes mellitus, type II: Metformin on hold Will check Hba1C in am Continue NovoLog sliding scale per protocol Continue monitor BS (9) HTN (hypertension): Hypotensive on admission Continue to hold lisinopril, HCTZ Continue metoprolol with holding parameters Continue monitor BP denny (10) Iron deficiency anemia: Hgb dropped to 8.5 today Continue iron supplement Will monitor Hgb DVT Prophylaxis Heparin SQ CODE status Full Code Admission and Anticipated Discharge Date Admission Date: November 20, 2019 Subjective Pt was seen and examined Lying in bed with no distress Pt said that she feels a little better She said that she feels week She is more alert today and able to follow commands She said that she is having tenderness in her neck Denies any recent fall, chest pain, palpitation and SOB Physical Exam Physical Exam: General- No acute distress Head- atraumatic Eyes- PERRL, EOMI, ENT- oropharynx clear Neck- supple, no JVD Lungs- clear to auscultation Heart- regular rhythm; no murmur Abdomen- normal bowel sounds, soft, nontender Extremities- no calf tenderness, venous stasis to bilateral lower legs without erythema or warmth Neuro- alert, oriented, PERRL, EOMI; no facial palsy; no dysarthria Skin- warm & dry, superficial wound in right medial buttock Results & Data Results & Data ([facility]) Vital Signs (Past 12 Hours) Vital Signs Temp Pulse Resp BP Pulse Ox 11/21/19 11:25 37.3 C 78 17 95/63 L 97 11/21/19 07:00 37.5 C 18 92/62 L 95 11/21/19 04:18 36.9 C 74 18 87/55 L 96
[2019-11-21] MEDS ORDERED: SODIUM CHLORIDE 0.9% 500 ML IV SCH (15:45)
[2019-11-21] MEDS ORDERED: SODIUM CHLORIDE 0.9% 1000ML 1,000 ML IV SCH (18:30)
[2019-11-21] MEDS: DAPTOmycin 250 MG in SYRINGE 0 ML IV SCH (20:33)
[2019-11-22] MEDS: PIPERACILLIN/TAZOBACTAM 3.375 GM in DEXTROSE 5% 100 ML IV SCH ×2 (01:29→11:27)
[2019-11-22] MEDS: HEPARIN SOD 5,000 UNIT/0.5 ML VIAL SQ SCH ×2 (06:00→15:12)
--- NOTE | 2019-11-22 08:01 | Infectious Disease Progress Nt ---
Date of Service November 22, 2019 Assessment & Plan (1) Acute UTI (urinary tract infection): will stop dapto at this time. continue zosyn for now, would give 7 days total, can change to cefdinir upon d/c to complete course. would avoid bactim due to elevated creat. Admission and Anticipated Discharge Date Admission Date: November 20, 2019 Subjective pt continues on emperic abx. afebrile, with exception of isolated mild temp 37.6. tolerating abx. urine culture growing K. pneumo - sensitive to zosyn. blood cultures remain negative. c. diff negative. Results & Data ([facility]) Vital Signs (Past 12 Hours) Vital Signs Temp Pulse Pulse Resp BP BP Pulse Ox 11/22/19 07:11 37.1 C 83 22 127/70 96 11/22/19 04: 37.1 C 78 18 118/74 98 11/22/19 00:08 37.6 C H 77 18 99/62 L 97 11/21/19 22:20 74 Laboratory Results Microbiology 11/20/19 14:10 Urine,Straight Cath Urine Culture - Preliminary Klebsiella pneumoniae 11/20/19 13:54 Blood Aerobic Blood Culture - Preliminary No growth in Aerobic bottle after 24 hours. 11/20/19 13:54 Blood Anaerobic Blood Culture - Preliminary No growth in Anaerobic bottle after 24 hours. 11/20/19 13:31 Blood Aerobic Blood Culture - Preliminary No growth in Aerobic bottle after 24 hours. 11/20/19 13:31 Blood Anaerobic Blood Culture - Preliminary No growth in Anaerobic bottle after 24 hours. PG Care Time/CCT Total # of Minutes Spent Total Time Spent with Patient: Total time spent is greater than 50% in coordination of care (as documented) at patient's floor/unit and/or counseling patient: Coding Level of Care Code 56928 Subseq Hosp Care Lvl 1 Diagnoses Acute UTI (urinary tract infection) N39.0
[2019-11-22 08:13] LABS: Estimated Average Glucose 157 mg/dl; Hemoglobin A1C 7.1 % (4.5-5.6)
[2019-11-22] MEDS: INSULIN ASPART 100 UNITS/ML 3 ML PEN SC SCH ×4 (08:58→20:40)
[2019-11-22] MEDS: ONDANSETRON INJ 2 MG/ML 2 ML VIAL IV PRN ×3 (08:59→21:56)
[2019-11-22 09:02] LABS: Hematocrit (blood only) 24.4 % (37-47); Hemoglobin 7.8 g/dL (12.0-16.0); Mean Corpuscular Volume 84.4 fL (80-100); Mean Platelet Volume 10.1 fL (7.4-10.4); Platelet Count 329 K/uL (130-400); RDW Coefficient of Variation 15.6 % (11.5-14.5); Red Blood Count 2.89 M/uL (4.2-5.4); White Blood Count 10.01 K/uL (4.8-10.8)
[2019-11-22 09:47] LABS: BUN Creatinine Ratio 59.2 (10-20); Calcium 8.9 mg/dl (8.5-10.1); Creatinine Clr Calc Pharmacy 66.8 ml/min; Est GFR (African American) 70.4; Est GFR (Non-African American) 60.8; Potassium 2.7 mmol/L (3.5-5.1)
[2019-11-22] MEDS ORDERED: POTASSIUM CHLORIDE 20 MEQ TABCR PO STA (10:21)
[2019-11-22] MEDS: POTASSIUM CHLORIDE / WTR 10 MEQ/100 ML PLCT IV SCH ×5 (11:28→23:06)
[2019-11-22] MEDS: ASPIRIN 81 MG ECTAB PO SCH (11:31)
[2019-11-22] MEDS: METOPROLOL TARTRATE 100 MG TAB PO SCH (11:31)
[2019-11-22] MEDS: levETIRAcetam 250 MG TAB PO SCH (11:31)
[2019-11-22] MEDS: CLOPIDOGREL BISULFATE 75 MG TAB PO SCH (11:31)
[2019-11-22] MEDS: PANTOprazole 40 MG TAB PO SCH (11:31)
[2019-11-22] MEDS: INSULIN GLARGINE SOLOSTAR 100 UNITS/ML 3 ML PEN SC SCH ×2 (11:32→20:39)
[2019-11-22] MEDS: FERROUS SULFATE 325 MG TAB PO SCH (11:33)
--- NOTE | 2019-11-22 13:31 | XRay Report ---
XR KUB/Abdomen 1 view CLINICAL HISTORY: 59 years-old Female presenting with abdominal pain. TECHNIQUE: Single supine view of the abdomen was obtained. COMPARISON: None. FINDINGS: Gaseous distention of small bowel with an apparent diameter of over 5 cm though this may be affected by magnification. Small bowel has a stacked appearance. Gaseous distention of large bowel is also pre sent. Allowing for supine technique, no gross pneumoperitoneum. IVC filter in place. Calcifications in the pelvis likely relate to uterine fibroids. Numerous pelvic phleboliths. A right renal calculus is difficult to exclude. Bowel gas degrades evaluation of the renal shadows. Osteopenia may be present. Degenerative changes of the spine. Lung bases clear. IMPRESSION: 1. Diffuse gaseous distention of small and large bowel could represent significant ileus. However, t he stacked configuration of small bowel makes obstruction difficult to exclude. Consider CT for furth er evaluation. ACT 112: Negative or not required by law. Electronically signed by: Porfirio Prieto M.D. 11/22/2019 1:30 PM
[2019-11-22] MEDS: cefTRIAXone SODIUM 2,000 MG in DEXTROSE 5% 50 ML IV SCH (15:45)
--- NOTE | 2019-11-22 17:07 | Hospitalist Progress Note ---
Date of Service November 22, 2019 Assessment & Plan (1) Sepsis: (2) UTI (urinary tract infection): Present on admission with unresponsive with Leukocytosis, elevated lactic acid and hypotension CXR showed no focal opacity and no large effusion or pneumothorax Urine cx positive for gram negative bacilli (Klebsiella pneumonia) lactic acid normalized and WBC trending down Blood cx no growth Was starting on IV Zosyn and Dapto ID on board Dapto discontinued IV zosyn changed to Rocephin IV for now Will transition to cefdinir on discharge to complete a total of 7 days course Blood pressure has been stable Clinically stable (3) Abdominal pain: Abdominal discomfort associated with nausea, vomiting KUB showed diffuse gaseous distention of small and large bowel could represent significant ileus. However, the stacked configuration of small bowel makes obstruction difficult to exclude. Stools negative for Cdiff, Salmonella, Shigella and Campylobacter Will make NPO for now CT abd/pelvi showed proximal small bowel is distended and fluid-filled. There are decompressed loops of distal small bowel in the right lower quadrant, and the appearance strongly suggests small bowel obstruction. Cholelithiasis within a distended gallbladder. Continue antiemetic and gentle hydration for now If patient continue to have recurrent vomiting, will consider to place an NG tube Will add morphine IV for pain Will consult surgery Will continue monitor closely Will check lipase Consider to get an u/s of the gallbladder to r/o acute cholecystisis (4) Altered mental state: Possible related to metabolic encephalopathy secondary to sepsis. CT head showed no acute changes No focal neuro deficit Clinically improves significantly resolved (5) Renal insufficiency: Acute Kidney Injury Possible related to dehydration due to sepsis BUN: 42, Cr: 1.9, GFR: 29 on admission, Unsure of pt's baseline renal functions Received IVF Creatinine normalizes Continue monitor renal functions Avoid nephrotoxic agents when possible (6) Hypokalemia: K 2.7 K replaced Monitor BMP (7) Sacral ulcer: Noted superficial sacral ulcer without surrounding erythema Wound care on board Continue daily wound care (8) Seizure disorder: History seizure disorder. Unsure when last seizure activity Will change Keppra to IV Continue seizure protocol (9) CAD (coronary artery disease): Continue aspirin, Plavix Will resume statin since will d/c Dapto in am Denies any chest pain (10) Diabetes mellitus, type II: Metformin on hold Will check Hba1C in am Continue NovoLog sliding scale per protocol Continue monitor BS (11) HTN (hypertension): Hypotensive on admission Continue to hold lisinopril, HCTZ Continue metoprolol with holding parameters Continue monitor BP denny (12) Iron deficiency anemia: Hgb dropped to 7.8 today Continue iron supplement Will monitor Hgb, transfuse if continue to drop DVT Prophylaxis Heparin SQ, will hold for now CODE status Full Code Admission and Anticipated Discharge Date Admission Date: November 20, 2019 Subjective Pt was seen and examined Lying in bed complaint of abdominal tenderness Pt felt nausea and had 2 episodes of emesis today She said that her belly feels distended Denies any chest pain, palpitation and SOB Physical Exam Physical Exam: General- No acute distress Head- atraumatic Eyes- PERRL, EOMI, ENT- oropharynx clear Neck- supple, no JVD Lungs- clear to auscultation Heart- regular rhythm; no murmur Abdomen- +tender, +moderate distended Extremities- no calf tenderness Neuro- alert, oriented x 3; PERRL, EOMI; no facial palsy; no dysarthria Skin- warm & dry Results & Data Results & Data ([facility]) Vital Signs (Past 12 Hours) Vital Signs Temp Pulse Pulse Resp BP BP Pulse Ox 11/22/19 15:43 37.2 C 77 20 132/78 97 11/22/19 12:39 37.1 C 81 20 109/72 97 11/22/19 08:00 81 11/22/19 07:26 36.8 C 103 H 20 134/77 91 11/22/19 07:11 37.1 C 83 22 127/70 96
[2019-11-22] MEDS ORDERED: SODIUM CHLORIDE 0.9% 1000ML 1,000 ML IV SCH (17:30)
--- NOTE | 2019-11-22 18:14 | CT Scan Report ---
CT SCAN OF THE ABDOMEN AND PELVIS WITHOUT IV CONTRAST CLINICAL HISTORY: Abdominal distention. COMPARISON STUDY: Abdominal radiograph dated 11/22/2019. TECHNIQUE: CT scan of the abdomen and pelvis is performed from the lung bases to the proximal femora. Images are reviewed in the axial, sagittal, and coronal planes. IV contrast was not administered for this examination as per the referring clinician. Note that the examination was performed in signific antly suboptimal fashion without oral and IV contrast. The examination is also degraded by motion art ifact, and by streak artifact from the arms which could not be elevated above the abdomen. A dose low ering technique was utilized adhering to the principles of ALARA. CT DOSE: 1691.55 mGy.cm FINDINGS: Lung bases: The heart is normal in size noting trace pericardial effusion. The coronary arteries are densely calcified. There is elevation of left hemidiaphragm. Trace pleural effusions are identified. Scarring/atelectasis is seen at the lung bases. A small to moderate hiatal hernia is noted. Liver: The unenhanced liver is normal in size, contour, and attenuation. There is no intrahepatic john iary ductal dilatation. Gallbladder: The gallbladder is distended and there is a large calcified gallstone. Trace pericholecy stic fluid is noted. Spleen: Normal in size and attenuation. Pancreas: The unenhanced pancreas is grossly unremarkable. Adrenal glands: Unremarkable. Kidneys: The unenhanced kidneys are atrophic and without hydronephrosis. A 14 mm calculus is present in the right renal pelvis. No left renal calculi are clearly identified. There is no evidence of cont our deforming renal mass lesion. Abdominal vasculature: The abdominal aorta is normal in course and caliber. An infrarenal IVC filter is in place. Bowel: A foreign body or catheter is present in the rectum. The small bowel loops are distended and f luid-filled measuring up to 4.3 cm in diameter. There are decompressed loops of small bowel in the ri ght lower quadrant, and the appearance is consistent with a small bowel obstruction. The transition p oint is not delineated. The colon is largely decompressed and partially fluid-filled. There is no pne umatosis intestinalis or portal venous gas. The appendix is normal as visualized. Peritoneum: There is trace abdominopelvic ascites. No intraperitoneal free air is seen. Lymphadenopathy: None. Pelvic viscera: The bladder is decompressed around a Laurent catheter. The bladder wall appears circumf erentially thickened. The uterus is enlarged and there are numerous calcified fibroids. No adnexal le emily is seen. Skeletal structures: The skeletal structures are osteopenic. No lytic or blastic lesions are seen. Th ere are healed left-sided rib fractures. Soft tissues: There is body wall edema. IMPRESSION: 1. Significantly suboptimal examination without oral and IV contrast. The examination is also degrade d by streak and motion artifact. 2. The proximal small bowel is distended and fluid-filled. There are decompressed loops of distal sma ll bowel in the right lower quadrant, and the appearance strongly suggests small bowel obstruction. A discrete transition point is not identified. Ileus is considered less likely due to the decompressed distal small bowel. 3. Liquid stool is noted in the colon. Correlate clinically for evidence of a nonspecific enterocolit is/diarrheal illness. 4. There is trace abdominopelvic ascites. No intraperitoneal free air is seen. 5. Trace pleural effusions. 6. A rectal foreign body or catheter is in place. Clinical correlation will be required. 7. Cholelithiasis within a distended gallbladder. Correlation with clinical findings and serum biliru bin levels will be required. If there is clinical concern for acute cholecystitis ultrasound should b e considered. 8. Right-sided nephrolithiasis. 9. Fibroid uterus. 10. The bladder wall appears thickened. Correlation with urinalysis will be required. 11. There is body wall edema. 12. Additional findings as above. ACT 112: Negative or not required by law. Electronically signed by: Isai Del Real M.D. 11/22/2019 6:12 PM
[2019-11-22] MEDS ORDERED: METOPROLOL TARTRATE 1 MG/ML VIAL IV PRN (18:37)
[2019-11-22] MEDS: levETIRAcetam 750 MG in 0.9 % SODIUM CHLORIDE 100 ML IV SCH (19:00)
--- NOTE | 2019-11-22 19:29 | Ultrasound Report ---
ULTRASOUND RIGHT UPPER QUADRANT ABDOMEN CLINICAL HISTORY: Abnormal gallbladder by CT. COMPARISON STUDY: Abdominal CT performed the same day 11/22/2019. TECHNIQUE: Real-time, grayscale, and color flow sonography of the right upper quadrant of the abdomen was performed. Images are reviewed in the transverse and longitudinal planes. FINDINGS: Liver: The liver is normal in size and slightly heterogeneous in echotexture. There is no intrahepati c biliary ductal dilatation. The main portal vein is patent. Gallbladder: The gallbladder is distended. A large shadowing calcified gallstone measures at least 1. 9 cm. There is no gallbladder wall thickening. A sonographic Piedra's sign is reportedly absent. The common bile duct measures up to 0.8 cm in diameter. Pancreas: Not visualized due to overlying bowel gas. Right kidney: Survey images of the right kidney demonstrate mild cortical atrophy. There is no hydron ephrosis. Ascites: There is trace upper abdominal ascites. IMPRESSION: 1. Cholelithiasis within a distended gallbladder. There is no sonographic evidence of acute cholecyst itis. 2. Trace upper abdominal ascites. ACT 112: Negative or not required by law. Electronically signed by: Isai Del Real M.D. 11/22/2019 7:27 PM
[2019-11-22 20:25] LABS: Potassium 3.1 mmol/L (3.5-5.1)
[2019-11-22] MEDS: MoRPHine SULFATE 2 MG/ML CARP IV PRN (21:56)
[2019-11-23] MEDS: POTASSIUM CHLORIDE / WTR 10 MEQ/100 ML PLCT IV SCH ×5 (00:28→11:41)
[2019-11-23] MEDS: MoRPHine SULFATE 2 MG/ML CARP IV PRN ×3 (02:38→21:37)
[2019-11-23] MEDS: levETIRAcetam 750 MG in 0.9 % SODIUM CHLORIDE 100 ML IV SCH ×2 (05:29→18:10)
[2019-11-23 06:34] LABS: Hematocrit (blood only) 26.8 % (37-47); Hemoglobin 8.4 g/dL (12.0-16.0); Mean Corpuscular Hemoglobin 26.6 pg (25-34); Mean Corpuscular Hgb Conc 31.3 g/dL (32-36); Mean Corpuscular Volume 84.8 fL (80-100); Mean Platelet Volume 9.9 fL (7.4-10.4); Platelet Count 340 K/uL (130-400); RDW Coefficient of Variation 15.4 % (11.5-14.5); RDW Standard Deviation 48.1 fL (36.4-46.3); Red Blood Count 3.16 M/uL (4.2-5.4); White Blood Count 10.94 K/uL (4.8-10.8)
[2019-11-23 06:52] LABS: BUN Creatinine Ratio 67.9 (10-20); Calcium 8.8 mg/dl (8.5-10.1); Creatinine Clr Calc Pharmacy 81.5 ml/min; Est GFR (African American) 89.5; Est GFR (Non-African American) 77.2; Magnesium 2.5 mg/dl (1.8-2.4); Potassium 3.4 mmol/L (3.5-5.1)
[2019-11-23] MEDS: INSULIN ASPART 100 UNITS/ML 3 ML PEN SC SCH ×3 (08:14→18:18)
[2019-11-23] MEDS: FERROUS SULFATE 325 MG TAB PO SCH (09:21)
[2019-11-23] MEDS: ASPIRIN 81 MG ECTAB PO SCH (09:21)
[2019-11-23] MEDS: CLOPIDOGREL BISULFATE 75 MG TAB PO SCH (09:22)
[2019-11-23] MEDS: METOPROLOL TARTRATE 100 MG TAB PO SCH (09:22)
[2019-11-23] MEDS: PANTOprazole 40 MG TAB PO SCH (09:22)
[2019-11-23] MEDS: INSULIN GLARGINE SOLOSTAR 100 UNITS/ML 3 ML PEN SC SCH ×2 (09:29→21:22)
[2019-11-23] MEDS ORDERED: Nursing to Pharmacy Communication ONE (10:25)
--- NOTE | 2019-11-23 13:10 | CT Scan Report ---
CT abdomen w oral con only HISTORY: 59 years-old Female continuing abdominal pain acute generalized abdominal pain COMPARISON: Right upper quadrant abdominal ultrasound and CT abdomen and pelvis 11/22/2019 TECHNIQUE: Multiple axial CT images of the abdomen were obtained with oral contrast only. No IV contr ast was utilized. A dose lowering technique was used consistent with the principals of BHUMIKA. FINDINGS: Trace pleural effusions with trace abdominal pelvic ascites and generalized body wall edema compatibl e with fluid overload. Moderate cardiomegaly is noted with coronary artery calcifications. Moderate l eft hemidiaphragmatic elevation. Bibasilar groundglass densities with linear subsegmental left basila r atelectasis. Motion degraded exam. No pneumatosis or pneumoperitoneum identified. Limited evaluation of the solid abdominal organs without the use of IV contrast. Within the limitatio ns of the study, the spleen, pancreas, adrenal glands and unenhanced liver appear unremarkable. Cristina lithiasis with distended gallbladder. No gallbladder wall thickening or biliary ductal dilation ident ified. 12 x 9 mm calculus of the interpolar right kidney. 1.3 cm exophytic lesion of the interpolar r ight kidney may reflect a cyst. No ureteral calculi identified. Aorta is unremarkable. Infrarenal IVC filter. Gaseous distention of the distal esophagus. A large amount of the enteric contrast is still present w ithin the stomach with only a few loops of jejunum opacified within the abdominal left upper quadrant . There are persistent dilated small bowel loops measuring up to approximately 4.2 cm with air-fluid levels. A gas-filled loop of tortuous sigmoid colon demonstrating circumferential wall thickening inv olves the right midabdomen on image 175 series 3. Appendix is fluid-filled and dilated measuring up t o 8 mm, likely secondary to the aforementioned findings within the bowel. Demineralized appearance th e bones. Degenerative changes of the spine. No acute fracture. Grade 1 anterolisthesis L3 on L4 is li minor degenerative. IMPRESSION: 1. Limited exam secondary to motion artifact and lack of IV contrast. 2. Persistent multiple dilated loops of small bowel with air-fluid levels are noted in conjunction wi thout a discrete transition point identified. Additionally, there is gaseous distention with circumfe rential wall thickening involving the sigmoid colon. Findings are concerning for enteritis with diarr heal illness. A low-grade bowel obstruction is considered less likely however continued follow-up is recommended. 3. Cholelithiasis with distended gallbladder. 4. Volume overload manifested by trace pleural effusions with trace abdominal ascites and anasarca. 5. Right nephrolithiasis. 6. Cardiomegaly. ACT 112: Negative or not required by law. The above report was generated using voice recognition software. It may contain grammatical, syntax o r spelling errors. Electronically signed by: Pedro Ramon M.D. 11/23/2019 1:09 PM
[2019-11-23] MEDS: cefTRIAXone SODIUM 2,000 MG in DEXTROSE 5% 50 ML IV SCH (15:54)
--- NOTE | 2019-11-23 16:04 | Hospitalist Progress Note ---
Date of Service November 23, 2019 Assessment & Plan (1) Sepsis: (2) UTI (urinary tract infection): Present on admission with unresponsive with Leukocytosis, elevated lactic acid and hypotension CXR showed no focal opacity and no large effusion or pneumothorax Urine cx positive for gram negative bacilli (Klebsiella pneumonia) lactic acid normalized and WBC trending down Blood cx no growth Was starting on IV Zosyn and Dapto ID on board Dapto discontinued IV zosyn changed to Rocephin IV for now Will transition to cefdinir on discharge to complete a total of 7 days course Blood pressure has been stable Clinically stable (3) Small bowel obstruction: (4) Abdominal pain: Abdominal discomfort associated with nausea, vomiting KUB showed diffuse gaseous distention of small and large bowel could represent significant ileus. However, the stacked configuration of small bowel makes obstruction difficult to exclude. Stools negative for Cdiff, Salmonella, Shigella and Campylobacter CT abd/pelvi showed proximal small bowel is distended and fluid-filled. There are decompressed loops of distal small bowel in the right lower quadrant, and the appearance strongly suggests small bowel obstruction. Cholelithiasis within a distended gallbladder. Gallbladder u/s showed cholelithiasis within a distended gallbladder. There is no sonographic evidence of acute cholecystitis. Continue antiemetic and gentle hydration for now Case discussed with Surgery dr. Barreto recommended to keep NPO for now and repeat the CT Repeat CT abd showed persistent multiple dilated loops of small bowel with air- fluid levels are noted in conjunction without a discrete transition point identified. Additionally, there is gaseous distention with circumferential wall thickening involving the sigmoid colon. If patient continue to have recurrent vomiting, will consider to place an NG tube Continue morphine IV for pain and IVF Will continue monitor closely (5) Altered mental state: Possible related to metabolic encephalopathy secondary to sepsis. CT head showed no acute changes No focal neuro deficit Clinically improves significantly resolved (6) Renal insufficiency: Acute Kidney Injury Possible related to dehydration due to sepsis BUN: 42, Cr: 1.9, GFR: 29 on admission, Unsure of pt's baseline renal functions Received IVF Creatinine normalizes Continue monitor renal functions Avoid nephrotoxic agents when possible (7) Hypokalemia: K 3.4 K replaced Monitor BMP (8) Sacral ulcer: Noted superficial sacral ulcer without surrounding erythema Wound care on board Continue daily wound care (9) Seizure disorder: History seizure disorder. Unsure when last seizure activity Continue Keppra IV for now since NPO Continue seizure protocol (10) CAD (coronary artery disease): aspirin, Plavix on hold for now due to NPO Will resume statin since will d/c Dapto in am Denies any chest pain (11) Diabetes mellitus, type II: Metformin on hold Hba1c 7.1 Continue NovoLog sliding scale per protocol Continue monitor BS (12) HTN (hypertension): Hypotensive on admission Continue to hold lisinopril, HCTZ Continue metoprolol with holding parameters Continue monitor BP denny (13) Iron deficiency anemia: Hgb dropped to 8.4 today Continue iron supplement Will monitor Hgb, transfuse if continue to drop DVT Prophylaxis Heparin on hold (may anticipate any surgical procedure) On SCDs CODE status Full Code Admission and Anticipated Discharge Date Admission Date: November 20, 2019 Subjective Pt was seen and examined Lying in bed with no distress Pt said that her abdominal pain slightly improves She said that she is hungry and would like to eat something or drink some coffee Denies any chest pain, palpitation, dizziness and SOB Physical Exam Physical Exam: General- No acute distress Head- atraumatic Eyes- PERRL, EOMI, ENT- oropharynx clear Neck- supple, no JVD Lungs- clear to auscultation Heart- regular rhythm; no murmur Abdomen- +tender, +moderate distended Extremities- no calf tenderness Neuro- alert, oriented x 3; PERRL, EOMI; no facial palsy; no dysarthria Skin- warm & dry Results & Data Results & Data ([facility]) Vital Signs (Past 12 Hours) Vital Signs Temp Pulse Resp BP BP Pulse Ox 11/23/19 15:17 37.1 C 85 18 150/81 H 98 11/23/19 11:14 36.8 C 75 20 116/70 98 11/23/19 06:45 37.0 C 75 17 102/61 97
[2019-11-23] MEDS ORDERED: SODIUM CHLORIDE 0.9% 1000ML 1,000 ML IV SCH (16:45)
--- NOTE | 2019-11-23 17:41 | Surgery Consultation ---
Date of Consultation November 23, 2019 Assessment & Plan (1) Abdominal pain: Etiology of her abdominal discomfort is not clear. It may be related to an enteritis. The initial CT showed possibility of a bowel obstruction. That does not persist. Her white blood cell count was normal. She did say that she was hungry. I would continue with conservative measures with keeping her n.p.o. I would perform serial labs. I do not feel that there is any need for immediate surgical intervention at this time. History of Present Illness Reason for Consultation: Abdominal pain Requesting Physician: Yakelin Macias MD Attending Physician: Yakelin Macias MD History of Present Illness This is a 59-year-old female who was brought to the emergency room with decreased mental status. She was felt to possibly have urosepsis. She was treated with antibiotics and resuscitation and her mental status improved although during her interview she was difficult to obtain information from she was not lethargic. She is very stoic. Yesterday she was noted to have a distended abdomen. That seems to be improved a little today. She has liquid bowel movements and a rectal catheter was placed. She continues to have liquid stool. She has pain throughout her abdomen with no area predominating. She has not nausea and had vomiting yesterday. The nausea is improved today and there is no further vomiting. She has not had fever. She denies previous abdominal surgery. CT scan of the abdomen and pelvis yesterday demonstrated proximally dilated small bowel with distally compressed small bowel. However a CT today demonstrated more diffuse dilatation of the small bowel and colon with thickening of the sigmoid colon more consistent with enteritis. Allergies Allergy/AdvReac Type Severity Reaction Status Date / Time No Known Allergies Allergy Unverified 11/20/19 13:37 Home Medications Home Medications Medication Instructions Recorded Confirmed Type acetaminophen [Tylenol] 650 mg PO QID PRN 11/20/19 11/20/19 History aspirin [Aspirin Low Dose] 81 mg PO QAM 11/20/19 11/20/19 History bisacodyl [Dulcolax (bisacodyl)] 10 mg TX DAILY PRN 11/20/19 11/20/19 History clopidogrel [Plavix] 75 mg PO QAM 11/20/19 11/20/19 History tcuschdc-nfzxtmt-xzyqger 1 ea PO UD PRN 11/20/19 11/20/19 History [Insta-Glucose (with dextrin)] docusate sodium 100 mg PO QAM 11/20/19 11/20/19 History ferrous sulfate 325 mg PO QAM 11/20/19 11/20/19 History gabapentin 300 mg PO TID 11/20/19 11/20/19 History hydrochlorothiazide 25 mg PO QAM 11/20/19 11/20/19 History insulin glargine [Lantus Solostar 10 unit SUBCUT QAM 11/20/19 11/20/19 History U-100 Insulin] insulin lispro 1 sliding scale dose SUBCUT 11/20/19 11/20/19 History USEASDIRECTD levetiracetam [Keppra] 750 mg PO BID 11/20/19 11/20/19 History lisinopril 20 mg PO QAM 11/20/19 11/20/19 History magnesium hydroxide [Milk of 30 ml PO UD PRN 11/20/19 11/20/19 History Magnesia] metformin 1,000 mg PO QAM 11/20/19 11/20/19 History metoprolol tartrate [Lopressor] 100 mg PO QAM 11/20/19 11/20/19 History multivit,stress formula-zinc 1 tab PO QAM 11/20/19 11/20/19 History [Stress Formula with Zinc] multivitamin 1 tab PO QAM 11/20/19 11/20/19 History pantoprazole [Protonix] 40 mg PO QAM 11/20/19 11/20/19 History polyethylene glycol 3350 17 g PO QAM 11/20/19 11/20/19 History simvastatin [Zocor] 40 mg PO HS 11/20/19 11/20/19 History Patient History Medical History Brain tumor CAD (coronary artery disease) Cfsdopl-Vjtiq-Bxxpu disease Diabetes mellitus, type II Dyslipidemia HTN (hypertension) Iron deficiency anemia Seizure disorder Surgical History History of craniotomy Social History Preferred Language: Danish Communication Ability: Impaired Current Living Situation: Residential Feels Safe at Home: Yes Smoking Status: Never smoker Hx Alcohol Use: No Hx Substance Use: No Physical Exam Constitutional: + ill appearing Respiratory: normal respiratory effort, lungs clear to auscultation Cardiovascular: Rate/Rhythm: regular rate and regular rhythm Gastrointestinal (Abdomen): Inspection/Auscultation: + abdomen distended (Mild to moderate) Percussion/Palpation: + abdomen tender (With no side predominating) and abdomen soft (Mildly firm) Skin: no rashes, warm and dry Lymphatic: no cervical lymphadenopathy Results & Data Vital Signs (Past 12 Hours) Vital Signs Temp Pulse Resp BP BP Pulse Ox 11/23/19 15:17 37.1 C 85 18 150/81 H 98 11/23/19 11:14 36.8 C 75 20 116/70 98 11/23/19 06:45 37.0 C 75 17 102/61 97 Laboratory Results 11/23/19 11/23/19 11/23/19 Range/Units 11:33 07:42 07:03 WBC (4.8-10.8) K/uL RBC (4.2-5.4) M/uL Hgb (12.0-16.0) g/dL Hct (37-47) % MCV (80-100) fL MCH (25-34) pg MCHC (32-36) g/dL RDW Std Deviation (36.4-46.3) fL RDW Coeff of Agustín (11.5-14.5) % Plt Count (130-400) K/uL MPV (7.4-10.4) fL Sodium (136-145) mmol/L Potassium (3.5-5.1) mmol/L Chloride (98-107) mmol/L Carbon Dioxide (21-32) mmol/L Anion Gap (3-11) BUN (7-18) mg/dl Creatinine (0.6-1.2) mg/dl Est Cr Clr Drug Dosing ml/min Est GFR ( Amer) Est GFR (Non-Af Amer) BUN/Creatinine Ratio (10-20) Glucose (70-99) mg/dl POC Glucose 102 H 100 H 102 H (70-99) mg/dl Calcium (8.5-10.1) mg/dl Magnesium (1.8-2.4) mg/dl Lipase (73-393) U/L 11/23/19 11/23/19 11/22/19 Range/Units 05:57 05:57 20:05 WBC 10.94 H (4.8-10.8) K/uL RBC 3.16 L (4.2-5.4) M/uL Hgb 8.4 L (12.0-16.0) g/dL Hct 26.8 L (37-47) % MCV 84.8 (80-100) fL MCH 26.6 (25-34) pg MCHC 31.3 L (32-36) g/dL RDW Std Deviation 48.1 H (36.4-46.3) fL RDW Coeff of Agustín 15.4 H (11.5-14.5) % Plt Count 340 (130-400) K/uL MPV 9.9 (7.4-10.4) fL Sodium 141 (136-145) mmol/L Potassium 3.4 L (3.5-5.1) mmol/L Chloride 113 H (98-107) mmol/L Carbon Dioxide 21 (21-32) mmol/L Anion Gap 8.0 (3-11) BUN 56 H (7-18) mg/dl Creatinine 0.82 (0.6-1.2) mg/dl Est Cr Clr Drug Dosing 81.5 ml/min Est GFR ( Amer) 89.5 Est GFR (Non-Af Amer) 77.2 BUN/Creatinine Ratio 67.9 H (10-20) Glucose 91 (70-99) mg/dl POC Glucose 111 H (70-99) mg/dl Calcium 8.8 (8.5-10.1) mg/dl Magnesium 2.5 H (1.8-2.4) mg/dl Lipase (73-393) U/L 11/22/19 Range/Units 19:57 WBC (4.8-10.8) K/uL RBC (4.2-5.4) M/uL Hgb (12.0-16.0) g/dL Hct (37-47) % MCV (80-100) fL MCH (25-34) pg MCHC (32-36) g/dL RDW Std Deviation (36.4-46.3) fL RDW Coeff of Agustín (11.5-14.5) % Plt Count (130-400) K/uL MPV (7.4-10.4) fL Sodium (136-145) mmol/L Potassium 3.1 L (3.5-5.1) mmol/L Chloride (98-107) mmol/L Carbon Dioxide (21-32) mmol/L Anion Gap (3-11) BUN (7-18) mg/dl Creatinine (0.6-1.2) mg/dl Est Cr Clr Drug Dosing ml/min Est GFR ( Amer) Est GFR (Non-Af Amer) BUN/Creatinine Ratio (10-20) Glucose (70-99) mg/dl POC Glucose (70-99) mg/dl Calcium (8.5-10.1) mg/dl Magnesium (1.8-2.4) mg/dl Lipase 45 L (73-393) U/L Diagnostic Findings CT SCAN OF THE ABDOMEN AND PELVIS WITHOUT IV CONTRAST (11/22/19) CLINICAL HISTORY: Abdominal distention. COMPARISON STUDY: Abdominal radiograph dated 11/22/2019. TECHNIQUE: CT scan of the abdomen and pelvis is performed from the lung bases to the proximal femora. Images are reviewed in the axial, sagittal, and coronal planes. IV contrast was not administered for this examination as per the referring clinician. Note that the examination was performed in significantly suboptimal fashion without oral and IV contrast. The examination is also degraded by motion artifact, and by streak artifact from the arms which could not be elevated above the abdomen. A dose lowering technique was utilized adhering to the principles of ALARA. CT DOSE: 1691.55 mGy.cm FINDINGS: Lung bases: The heart is normal in size noting trace pericardial effusion. The coronary arteries are densely calcified. There is elevation of left hemidiaphragm. Trace pleural effusions are identified. Scarring/atelectasis is seen at the lung bases. A small to moderate hiatal hernia is noted. Liver: The unenhanced liver is normal in size, contour, and attenuation. There is no intrahepatic biliary ductal dilatation. Gallbladder: The gallbladder is distended and there is a large calcified gallstone. Trace pericholecystic fluid is noted. Spleen: Normal in size and attenuation. Pancreas: The unenhanced pancreas is grossly unremarkable. Adrenal glands: Unremarkable. Kidneys: The unenhanced kidneys are atrophic and without hydronephrosis. A 14 mm calculus is present in the right renal pelvis. No left renal calculi are clearly identified. There is no evidence of contour deforming renal mass lesion. Abdominal vasculature: The abdominal aorta is normal in course and caliber. An infrarenal IVC filter is in place. Bowel: A foreign body or catheter is present in the rectum. The small bowel loops are distended and fluid-filled measuring up to 4.3 cm in diameter. There are decompressed loops of small bowel in the right lower quadrant, and the appearance is consistent with a small bowel obstruction. The transition point is not delineated. The colon is largely decompressed and partially fluid-filled. There is no pneumatosis intestinalis or portal venous gas. The appendix is normal as visualized. Peritoneum: There is trace abdominopelvic ascites. No intraperitoneal free air is seen. Lymphadenopathy: None. Pelvic viscera: The bladder is decompressed around a Laurent catheter. The bladder wall appears circumferentially thickened. The uterus is enlarged and there are numerous calcified fibroids. No adnexal lesion is seen. Skeletal structures: The skeletal structures are osteopenic. No lytic or blastic lesions are seen. There are healed left-sided rib fractures. Soft tissues: There is body wall edema. IMPRESSION: 1. Significantly suboptimal examination without oral and IV contrast. The examination is also degraded by streak and motion artifact. 2. The proximal small bowel is distended and fluid-filled. There are decompressed loops of distal small bowel in the right lower quadrant, and the appearance strongly suggests small bowel obstruction. A discrete transition point is not identified. Ileus is considered less likely due to the decompressed distal small bowel. 3. Liquid stool is noted in the colon. Correlate clinically for evidence of a nonspecific enterocolitis/diarrheal illness. 4. There is trace abdominopelvic ascites. No intraperitoneal free air is seen. 5. Trace pleural effusions. 6. A rectal foreign body or catheter is in place. Clinical correlation will be required. 7. Cholelithiasis within a distended gallbladder. Correlation with clinical findings and serum bilirubin levels will be required. If there is clinical concern for acute cholecystitis ultrasound should be considered. 8. Right-sided nephrolithiasis. 9. Fibroid uterus. 10. The bladder wall appears thickened. Correlation with urinalysis will be required. 11. There is body wall edema. 12. Additional findings as above. ULTRASOUND RIGHT UPPER QUADRANT ABDOMEN CLINICAL HISTORY: Abnormal gallbladder by CT. COMPARISON STUDY: Abdominal CT performed the same day 11/22/2019. TECHNIQUE: Real-time, grayscale, and color flow sonography of the right upper quadrant of the abdomen was performed. Images are reviewed in the transverse and longitudinal planes. FINDINGS: Liver: The liver is normal in size and slightly heterogeneous in echotexture. There is no intrahepatic biliary ductal dilatation. The main portal vein is patent. Gallbladder: The gallbladder is distended. A large shadowing calcified gallstone measures at least 1.9 cm. There is no gallbladder wall thickening. A sonographic Piedra's sign is reportedly absent. The common bile duct measures up to 0.8 cm in diameter. Pancreas: Not visualized due to overlying bowel gas. Right kidney: Survey images of the right kidney demonstrate mild cortical atrophy. There is no hydronephrosis. Ascites: There is trace upper abdominal ascites. IMPRESSION: 1. Cholelithiasis within a distended gallbladder. There is no sonographic evidence of acute cholecystitis. 2. Trace upper abdominal ascites. CT abdomen w oral con only HISTORY: 59 years-old Female continuing abdominal pain acute generalized abdominal pain COMPARISON: Right upper quadrant abdominal ultrasound and CT abdomen and pelvis 11/22/2019 TECHNIQUE: Multiple axial CT images of the abdomen were obtained with oral contrast only. No IV contrast was utilized. A dose lowering technique was used consistent with the principals of ALARA. FINDINGS: Trace pleural effusions with trace abdominal pelvic ascites and generalized body wall edema compatible with fluid overload. Moderate cardiomegaly is noted with coronary artery calcifications. Moderate left hemidiaphragmatic elevation. Bibasilar groundglass densities with linear subsegmental left basilar atelectasis. Motion degraded exam. No pneumatosis or pneumoperitoneum identified. Limited evaluation of the solid abdominal organs without the use of IV contrast. Within the limitations of the study, the spleen, pancreas, adrenal glands and unenhanced liver appear unremarkable. Cholelithiasis with distended gallbladder. No gallbladder wall thickening or biliary ductal dilation identified. 12 x 9 mm calculus of the interpolar right kidney. 1.3 cm exophytic lesion of the interpolar right kidney may reflect a cyst. No ureteral calculi identified. Aorta is unremarkable. Infrarenal IVC filter. Gaseous distention of the distal esophagus. A large amount of the enteric contrast is still present within the stomach with only a few loops of jejunum opacified within the abdominal left upper quadrant. There are persistent dilated small bowel loops measuring up to approximately 4.2 cm with air-fluid levels. A gas-filled loop of tortuous sigmoid colon demonstrating circumferential wall thickening involves the right midabdomen on image 175 series 3. Appendix is fluid-filled and dilated measuring up to 8 mm, likely secondary to the aforementioned findings within the bowel. Demineralized appearance the bones. Degenerative changes of the spine. No acute fracture. Grade 1 anterolisthesis L3 on L4 is likely degenerative. IMPRESSION: 1. Limited exam secondary to motion artifact and lack of IV contrast. 2. Persistent multiple dilated loops of small bowel with air-fluid levels are noted in conjunction without a discrete transition point identified. Additionally, there is gaseous distention with circumferential wall thickening involving the sigmoid colon. Findings are concerning for enteritis with diarrheal illness. A low-grade bowel obstruction is considered less likely however continued follow-up is recommended. 3. Cholelithiasis with distended gallbladder. 4. Volume overload manifested by trace pleural effusions with trace abdominal ascites and anasarca. 5. Right nephrolithiasis. 6. Cardiomegaly.
[2019-11-24] MEDS: INSULIN ASPART 100 UNITS/ML 3 ML PEN SC SCH ×5 (00:19→21:51)
[2019-11-24] MEDS: levETIRAcetam 750 MG in 0.9 % SODIUM CHLORIDE 100 ML IV SCH ×2 (05:27→17:15)
[2019-11-24] MEDS ORDERED: METOPROLOL TARTRATE 1 MG/ML VIAL IV STA (08:04)
[2019-11-24] MEDS: INSULIN GLARGINE SOLOSTAR 100 UNITS/ML 3 ML PEN SC SCH ×2 (09:08→21:50)
[2019-11-24] MEDS: PANTOprazole 40 MG TAB PO SCH (10:56)
[2019-11-24] MEDS: ASPIRIN 81 MG ECTAB PO SCH (10:56)
[2019-11-24] MEDS: FERROUS SULFATE 325 MG TAB PO SCH (10:56)
[2019-11-24] MEDS: METOPROLOL TARTRATE 100 MG TAB PO SCH (10:57)
[2019-11-24] MEDS: CLOPIDOGREL BISULFATE 75 MG TAB PO SCH (10:57)
--- NOTE | 2019-11-24 12:44 | Surgery Progress Note ---
Date of Service November 24, 2019 Assessment & Plan (1) Small bowel obstruction: Small bowel obstruction not confirmed by CT yesterday. Appeared to be more of an enteritis. She is clinically improving Agree with clear liquid diet No peritonitis or evidence for immediate surgical intervention. Subjective Awake alert more interactive today Has a small amount of abdominal pain and is less than yesterday Hungry this morning Denies nausea and has not had vomiting Physical Exam Gastrointestinal (Abdomen): Inspection/Auscultation: normal bowel sounds; abdomen not distended Percussion/Palpation: + abdomen tender (Diffusely still but less intense) and abdomen soft Results & Data Vital Signs (Past 12 Hours) Vital Signs Temp Pulse Pulse Resp BP BP Pulse Ox 11/24/19 11:30 37.5 C 88 20 163/83 H 100 11/24/19 08:24 92 H 180/92 H 11/24/19 08:03 97 H 11/24/19 07:00 37.1 C 92 H 22 168/89 H 100 11/24/19 03:06 36.7 C 91 H 17 174/81 H 98 Laboratory Results 11/24/19 11/24/19 11/24/19 Range/Units 11:19 06:31 00:04 POC Glucose 153 H 112 H 105 H (70-99) mg/dl 11/23/19 Range/Units 18:15 POC Glucose 104 H (70-99) mg/dl
--- NOTE | 2019-11-24 14:00 | Hospitalist Progress Note ---
Date of Service November 24, 2019 Assessment & Plan (1) Sepsis: (2) UTI (urinary tract infection): Present on admission with unresponsive with Leukocytosis, elevated lactic acid and hypotension CXR showed no focal opacity and no large effusion or pneumothorax Urine cx positive for gram negative bacilli (Klebsiella pneumonia) lactic acid normalized and WBC trending down Blood cx no growth Was starting on IV Zosyn and Dapto ID on board Dapto discontinued IV zosyn changed to Rocephin IV for now Will transition to cefdinir on discharge to complete a total of 7 days course Blood pressure has been stable Clinically stable (3) Small bowel obstruction: (4) Abdominal pain: Abdominal discomfort associated with nausea, vomiting KUB showed diffuse gaseous distention of small and large bowel could represent significant ileus. However, the stacked configuration of small bowel makes obstruction difficult to exclude. Stools negative for Cdiff, Salmonella, Shigella and Campylobacter CT abd/pelvi showed proximal small bowel is distended and fluid-filled. There are decompressed loops of distal small bowel in the right lower quadrant, and the appearance strongly suggests small bowel obstruction. Cholelithiasis within a distended gallbladder. Gallbladder u/s showed cholelithiasis within a distended gallbladder. There is no sonographic evidence of acute cholecystitis. Continue antiemetic and gentle hydration for now Surgery on board Repeat CT abd showed persistent multiple dilated loops of small bowel with air- fluid levels are noted in conjunction without a discrete transition point identified. Additionally, there is gaseous distention with circumferential wall thickening involving the sigmoid colon. No episode of vomiting since yesterday morning Starting on clear liquid diet Continue morphine IV for pain Continue gentle hydration Clinically improves Will continue monitor closely (5) Altered mental state: Possible related to metabolic encephalopathy secondary to sepsis. CT head showed no acute changes No focal neuro deficit Clinically improves significantly resolved (6) Renal insufficiency: Acute Kidney Injury Possible related to dehydration due to sepsis BUN: 42, Cr: 1.9, GFR: 29 on admission, Unsure of pt's baseline renal functions Received IVF Creatinine normalizes Continue monitor renal functions Avoid nephrotoxic agents when possible (7) Hypokalemia: K 3.4 K replaced Monitor BMP (8) Sacral ulcer: Noted superficial sacral ulcer without surrounding erythema Wound care on board Continue daily wound care (9) Seizure disorder: History seizure disorder. Unsure when last seizure activity Continue Keppra IV for now since NPO Continue seizure protocol (10) CAD (coronary artery disease): aspirin, Plavix on hold for now due to NPO Will resume statin since will d/c Dapto in am Denies any chest pain (11) Diabetes mellitus, type II: Metformin on hold Hba1c 7.1 Continue NovoLog sliding scale per protocol Continue monitor BS (12) HTN (hypertension): Hypotensive on admission Continue to hold lisinopril, HCTZ Continue metoprolol with holding parameters Continue monitor BP denny (13) Iron deficiency anemia: Hgb dropped to 8.4 today Continue iron supplement Will monitor Hgb, transfuse if continue to drop DVT Prophylaxis Heparin on hold (may anticipate any surgical procedure) On SCDs CODE status Full Code Admission and Anticipated Discharge Date Admission Date: November 20, 2019 Subjective Pt was seen and examined Lying in bed with no distress Pt said that she feels much better She said that she has not had any episode of vomiting since yesterday She said that her abdominal pain increase significantly She said that she is very hungry Denies any chest pain, palpitation and SOB Physical Exam Physical Exam: General- No acute distress Head- atraumatic Eyes- PERRL, EOMI, ENT- oropharynx clear Neck- supple, no JVD Lungs- clear to auscultation Heart- regular rhythm; no murmur Abdomen- +tender, +moderate distended Extremities- no calf tenderness Neuro- alert, oriented x 3; PERRL, EOMI; no facial palsy; no dysarthria Skin- warm & dry Results & Data Results & Data ([facility]) Vital Signs (Past 12 Hours) Vital Signs Temp Pulse Pulse Resp BP BP Pulse Ox 11/24/19 11:30 37.5 C 88 20 163/83 H 100 11/24/19 08:24 92 H 180/92 H 11/24/19 08:03 97 H 11/24/19 07:00 37.1 C 92 H 22 168/89 H 100 11/24/19 03:06 36.7 C 91 H 17 174/81 H 98
[2019-11-24] MEDS ORDERED: Nursing to Pharmacy Communication ONE (15:15)
[2019-11-24] MEDS: cefTRIAXone SODIUM 2,000 MG in DEXTROSE 5% 50 ML IV SCH (16:25)
[2019-11-24] MEDS: HEPARIN SOD 5,000 UNIT/0.5 ML VIAL SQ SCH (21:49)
[2019-11-25] MEDS: levETIRAcetam 750 MG in 0.9 % SODIUM CHLORIDE 100 ML IV SCH ×2 (05:37→18:03)
[2019-11-25] MEDS: HEPARIN SOD 5,000 UNIT/0.5 ML VIAL SQ SCH ×2 (05:37→14:03)
[2019-11-25 06:11] LABS: Hematocrit (blood only) 24.5 % (37-47); Hemoglobin 7.9 g/dL (12.0-16.0); Mean Corpuscular Hemoglobin 27.1 pg (25-34); Mean Corpuscular Hgb Conc 32.2 g/dL (32-36); Mean Corpuscular Volume 83.9 fL (80-100); Mean Platelet Volume 8.8 fL (7.4-10.4); Platelet Count 337 K/uL (130-400); RDW Coefficient of Variation 15.1 % (11.5-14.5); RDW Standard Deviation 47.1 fL (36.4-46.3); Red Blood Count 2.92 M/uL (4.2-5.4); White Blood Count 7.66 K/uL (4.8-10.8)
[2019-11-25 07:12] LABS: BUN Creatinine Ratio 32.4 (10-20); Calcium 8.5 mg/dl (8.5-10.1); Creatinine Clr Calc Pharmacy 148.3 ml/min; Est GFR (African American) 125.3; Est GFR (Non-African American) 108.1; Potassium 2.6 mmol/L (3.5-5.1)
[2019-11-25] MEDS: INSULIN ASPART 100 UNITS/ML 3 ML PEN SC SCH ×4 (07:52→21:41)
[2019-11-25] MEDS: INSULIN GLARGINE SOLOSTAR 100 UNITS/ML 3 ML PEN SC SCH ×2 (07:53→21:38)
[2019-11-25] MEDS: ASPIRIN 81 MG ECTAB PO SCH (07:54)
[2019-11-25] MEDS: PANTOprazole 40 MG TAB PO SCH (07:54)
[2019-11-25] MEDS: METOPROLOL TARTRATE 100 MG TAB PO SCH (07:54)
[2019-11-25] MEDS: CLOPIDOGREL BISULFATE 75 MG TAB PO SCH (07:54)
[2019-11-25] MEDS: FERROUS SULFATE 325 MG TAB PO SCH (07:54)
[2019-11-25] MEDS ORDERED: POTASSIUM CHLORIDE 20 MEQ TABCR PO STA (08:38)
--- NOTE | 2019-11-25 09:15 | Surgery Progress Note ---
Date of Service November 25, 2019 Assessment & Plan (1) Small bowel obstruction: CT scan showing more of enteritis/diarrheal state with no transition zone + stool output abdomen soft, nondistended, nontender today no leukocytosis Hypokalemia of 2.6 Plan: No acute surgical indication at this time. May advance to full liquids slowly replete potassium continue current medical management will follow Dr. Barreto has seen and examined pt, agrees with above. Supervising Physician Co-Signing Physician Notes I interviewed and examined this patient I agree with the above note. She tolerated the full liquids. Her abdomen is less tender. She is having less pain. She continues to put out liquid stool. Consider advancing diet as tolerated. Subjective feeling better not having abdominal pain no nausea or vomiting Per nurse she is doing better today, had some liquid stool output no vomiting Physical Exam Constitutional: no acute distress Respiratory: normal respiratory effort; no respiratory distress Gastrointestinal (Abdomen): Inspection/Auscultation: abdomen not distended Percussion/Palpation: abdomen soft; abdomen nontender, no guarding and abdomen not rigid Skin: no rashes, warm and dry Results & Data Vital Signs (Past 12 Hours) Vital Signs Temp Pulse Resp BP Pulse Ox 11/25/19 07:48 37.4 C 84 16 202/89 H 100 11/25/19 03:46 37.1 C 75 19 160/69 H 100 Laboratory Results 11/25/19 11/25/19 11/25/19 Range/Units 07:32 06:00 06:00 WBC 7.66 (4.8-10.8) K/uL RBC 2.92 L (4.2-5.4) M/uL Hgb 7.9 L (12.0-16.0) g/dL Hct 24.5 L (37-47) % MCV 83.9 (80-100) fL MCH 27.1 (25-34) pg MCHC 32.2 (32-36) g/dL RDW Std Deviation 47.1 H (36.4-46.3) fL RDW Coeff of Agustín 15.1 H (11.5-14.5) % Plt Count 337 (130-400) K/uL MPV 8.8 (7.4-10.4) fL Sodium 146 H (136-145) mmol/L Potassium 2.6 L (3.5-5.1) mmol/L Chloride 115 H (98-107) mmol/L Carbon Dioxide 25 (21-32) mmol/L Anion Gap 6.0 (3-11) BUN 15 (7-18) mg/dl Creatinine 0.45 L (0.6-1.2) mg/dl Est Cr Clr Drug Dosing 148.3 ml/min Est GFR ( Amer) 125.3 Est GFR (Non-Af Amer) 108.1 BUN/Creatinine Ratio 32.4 H (10-20) Glucose 129 H (70-99) mg/dl POC Glucose 138 H (70-99) mg/dl Calcium 8.5 (8.5-10.1) mg/dl Magnesium 2.0 (1.8-2.4) mg/dl 11/24/19 11/24/19 11/24/19 Range/Units 20:45 16:24 11:19 WBC (4.8-10.8) K/uL RBC (4.2-5.4) M/uL Hgb (12.0-16.0) g/dL Hct (37-47) % MCV (80-100) fL MCH (25-34) pg MCHC (32-36) g/dL RDW Std Deviation (36.4-46.3) fL RDW Coeff of Agustín (11.5-14.5) % Plt Count (130-400) K/uL MPV (7.4-10.4) fL Sodium (136-145) mmol/L Potassium (3.5-5.1) mmol/L Chloride (98-107) mmol/L Carbon Dioxide (21-32) mmol/L Anion Gap (3-11) BUN (7-18) mg/dl Creatinine (0.6-1.2) mg/dl Est Cr Clr Drug Dosing ml/min Est GFR ( Amer) Est GFR (Non-Af Amer) BUN/Creatinine Ratio (10-20) Glucose (70-99) mg/dl POC Glucose 219 H 180 H 153 H (70-99) mg/dl Calcium (8.5-10.1) mg/dl Magnesium (1.8-2.4) mg/dl
[2019-11-25] MEDS: POTASSIUM CHLORIDE / WTR 10 MEQ/100 ML PLCT IV SCH ×3 (10:12→12:11)
[2019-11-25] MEDS: HydrALAZINE HCL 20 MG/ML VIAL IV PRN (12:11)
[2019-11-25] MEDS: ONDANSETRON INJ 2 MG/ML 2 ML VIAL IV PRN (14:51)
--- NOTE | 2019-11-25 15:39 | Hospitalist Progress Note ---
Date of Service November 25, 2019 Assessment & Plan (1) Sepsis: (2) UTI (urinary tract infection): Present on admission with unresponsive with Leukocytosis, elevated lactic acid and hypotension CXR showed no focal opacity and no large effusion or pneumothorax Urine cx positive for gram negative bacilli (Klebsiella pneumonia) lactic acid normalized and WBC trending down Blood cx no growth Was starting on IV Zosyn and Dapto ID on board Dapto discontinued IV zosyn changed to Rocephin IV for now Will transition to cefdinir on discharge to complete a total of 7 days course Blood pressure has been stable Clinically stable (3) Small bowel obstruction: (4) Abdominal pain: Abdominal discomfort associated with nausea, vomiting KUB showed diffuse gaseous distention of small and large bowel could represent significant ileus. However, the stacked configuration of small bowel makes obstruction difficult to exclude. Stools negative for Cdiff, Salmonella, Shigella and Campylobacter CT abd/pelvi showed proximal small bowel is distended and fluid-filled. There are decompressed loops of distal small bowel in the right lower quadrant, and the appearance strongly suggests small bowel obstruction. Cholelithiasis within a distended gallbladder. Gallbladder u/s showed cholelithiasis within a distended gallbladder. There is no sonographic evidence of acute cholecystitis. Continue antiemetic and gentle hydration for now Surgery on board Repeat CT abd showed persistent multiple dilated loops of small bowel with air- fluid levels are noted in conjunction without a discrete transition point identified. Additionally, there is gaseous distention with circumferential wall thickening involving the sigmoid colon. No episode of vomiting since yesterday morning No indication for any surgical intervention as per surgery Diet advanced to full liquid Continue morphine IV for pain Continue gentle hydration Clinically improves Will continue monitor closely (5) Altered mental state: Possible related to metabolic encephalopathy secondary to sepsis. CT head showed no acute changes No focal neuro deficit Clinically improves significantly resolved (6) Renal insufficiency: Acute Kidney Injury Possible related to dehydration due to sepsis BUN: 42, Cr: 1.9, GFR: 29 on admission, Unsure of pt's baseline renal functions Received IVF Creatinine normalizes Continue monitor renal functions Avoid nephrotoxic agents when possible (7) Hypokalemia: K 2.7 K replaced Monitor BMP (8) Sacral ulcer: Noted superficial sacral ulcer without surrounding erythema Wound care on board Continue daily wound care (9) Seizure disorder: History seizure disorder. Unsure when last seizure activity Continue Keppra IV for now since NPO Continue seizure protocol (10) CAD (coronary artery disease): aspirin, Plavix on hold for now due to NPO Will resume statin since will d/c Dapto in am Denies any chest pain (11) Diabetes mellitus, type II: Metformin on hold Hba1c 7.1 Continue NovoLog sliding scale per protocol Continue monitor BS (12) HTN (hypertension): Hypotensive on admission Continue to hold lisinopril, HCTZ Continue metoprolol with holding parameters Continue monitor BP denny (13) Iron deficiency anemia: Hgb dropped to 7.9 today Continue iron supplement Will monitor Hgb, transfuse if continue to drop DVT Prophylaxis Heparin on hold (may anticipate any surgical procedure) On SCDs CODE status Full Code Admission and Anticipated Discharge Date Admission Date: November 20, 2019 Subjective Pt was seen and examined Lying in bed with no distress Pt said that she feels nauseated and dizzy She said that her abdominal pain improves Denies any chest pain, palpitation, dizziness and SOB Physical Exam Physical Exam: General- No acute distress Head- atraumatic Eyes- PERRL, EOMI, ENT- oropharynx clear Neck- supple, no JVD Lungs- clear to auscultation Heart- regular rhythm; no murmur Abdomen- Nontender Extremities- no calf tenderness Neuro- alert, oriented x 3; PERRL, EOMI; no facial palsy; no dysarthria Skin- warm & dry Results & Data Results & Data ([facility]) Vital Signs (Past 12 Hours) Vital Signs Temp Pulse Pulse Resp BP BP Pulse Ox 11/25/19 14:57 37.3 C 74 20 156/72 H 100 11/25/19 14:01 74 114/61 11/25/19 12:07 36.9 C 67 20 168/80 H 100 11/25/19 09:17 67 165/80 H 11/25/19 07:48 37.4 C 84 16 202/89 H 100 11/25/19 03:46 37.1 C 75 19 160/69 H 100
[2019-11-25] MEDS: cefTRIAXone SODIUM 2,000 MG in DEXTROSE 5% 50 ML IV SCH (15:59)
[2019-11-25] MEDS: MoRPHine SULFATE 2 MG/ML CARP IV PRN (16:07)
[2019-11-26] MEDS: levETIRAcetam 750 MG in 0.9 % SODIUM CHLORIDE 100 ML IV SCH ×2 (05:07→17:10)
[2019-11-26 07:19] LABS: Hemoglobin 8.8 g/dL (12.0-16.0); Mean Corpuscular Hemoglobin 26.5 pg (25-34); Mean Corpuscular Hgb Conc 31.4 g/dL (32-36); Mean Corpuscular Volume 84.3 fL (80-100); Mean Platelet Volume 9.5 fL (7.4-10.4); Platelet Count 419 K/uL (130-400); RDW Coefficient of Variation 15.4 % (11.5-14.5); RDW Standard Deviation 47.7 fL (36.4-46.3); Red Blood Count 3.32 M/uL (4.2-5.4); White Blood Count 10.12 K/uL (4.8-10.8)
[2019-11-26 07:40] LABS: BUN Creatinine Ratio 24.6 (10-20); Calcium 8.5 mg/dl (8.5-10.1); Creatinine Clr Calc Pharmacy 121.5 ml/min; Est GFR (African American) 116.6; Est GFR (Non-African American) 100.6; Potassium 3.4 mmol/L (3.5-5.1)
[2019-11-26] MEDS ORDERED: POTASSIUM CHLORIDE 20 MEQ TABCR PO STA (07:58)
[2019-11-26] MEDS: CLOPIDOGREL BISULFATE 75 MG TAB PO SCH (08:00)
[2019-11-26] MEDS: PANTOprazole 40 MG TAB PO SCH (08:00)
[2019-11-26] MEDS: ASPIRIN 81 MG ECTAB PO SCH (08:00)
[2019-11-26] MEDS: INSULIN GLARGINE SOLOSTAR 100 UNITS/ML 3 ML PEN SC SCH ×2 (08:00→20:57)
[2019-11-26] MEDS: FERROUS SULFATE 325 MG TAB PO SCH (08:00)
[2019-11-26] MEDS: METOPROLOL TARTRATE 100 MG TAB PO SCH (08:00)
[2019-11-26] MEDS: INSULIN ASPART 100 UNITS/ML 3 ML PEN SC SCH ×4 (08:02→20:58)
[2019-11-26] MEDS: ONDANSETRON INJ 2 MG/ML 2 ML VIAL IV PRN (08:52)
--- NOTE | 2019-11-26 11:26 | Surgery Progress Note ---
Date of Service November 26, 2019 Assessment & Plan (1) Small bowel obstruction: repeat CT scan showing more of enteritis/diarrheal state with no transition zone + stool output abdomen soft, nondistended, tender LUQ/Left side today but no guarding or peritonitis no leukocytosis Plan: No acute surgical indication at this time. May advance diet slowly as tolerated continue current medical management will follow Dr. Beauchapm has seen and examined pt, agrees with above Subjective per nursing staff she had emesis last night, some nausea controlled with zofran, incontinent of liquid stool, rectal tube removed yesterday. Per patient, abdominal pain 7/10 upper/left sided. some nausea no vomiting today. Tolerated full liquid tray for breakfast without pain, nausea, or vomiting. Physical Exam Constitutional: WD/WN, vitals as above no acute distress Gastrointestinal (Abdomen): Inspection/Auscultation: abdomen normal to inspection; abdomen not distended Percussion/Palpation: + abdomen tender (LUQ/left side) and abdomen soft; no guarding and abdomen not rigid Skin: no rashes, warm and dry Results & Data Vital Signs (Past 12 Hours) Vital Signs Temp Pulse Resp BP Pulse Ox 11/26/19 07:00 36.9 C 83 16 144/77 H 100 11/26/19 04:39 36.5 C 83 16 130/72 98 11/25/19 23:52 36.8 C 77 18 178/82 H 97 Laboratory Results 11/26/19 11/26/19 11/26/19 Range/Units 07:08 06:44 06:44 WBC 10.12 (4.8-10.8) K/uL RBC 3.32 L (4.2-5.4) M/uL Hgb 8.8 L (12.0-16.0) g/dL Hct 28.0 L (37-47) % MCV 84.3 (80-100) fL MCH 26.5 (25-34) pg MCHC 31.4 L (32-36) g/dL RDW Std Deviation 47.7 H (36.4-46.3) fL RDW Coeff of Agustín 15.4 H (11.5-14.5) % Plt Count 419 H (130-400) K/uL MPV 9.5 (7.4-10.4) fL Sodium 144 (136-145) mmol/L Potassium 3.4 L D (3.5-5.1) mmol/L Chloride 115 H (98-107) mmol/L Carbon Dioxide 24 (21-32) mmol/L Anion Gap 5.0 (3-11) BUN 14 (7-18) mg/dl Creatinine 0.56 L (0.6-1.2) mg/dl Est Cr Clr Drug Dosing 121.5 ml/min Est GFR ( Amer) 116.6 Est GFR (Non-Af Amer) 100.6 BUN/Creatinine Ratio 24.6 H (10-20) Glucose 142 H (70-99) mg/dl POC Glucose 161 H (70-99) mg/dl Calcium 8.5 (8.5-10.1) mg/dl 11/25/19 11/25/19 Range/Units 20:14 16:00 WBC (4.8-10.8) K/uL RBC (4.2-5.4) M/uL Hgb (12.0-16.0) g/dL Hct (37-47) % MCV (80-100) fL MCH (25-34) pg MCHC (32-36) g/dL RDW Std Deviation (36.4-46.3) fL RDW Coeff of Agustín (11.5-14.5) % Plt Count (130-400) K/uL MPV (7.4-10.4) fL Sodium (136-145) mmol/L Potassium (3.5-5.1) mmol/L Chloride (98-107) mmol/L Carbon Dioxide (21-32) mmol/L Anion Gap (3-11) BUN (7-18) mg/dl Creatinine (0.6-1.2) mg/dl Est Cr Clr Drug Dosing ml/min Est GFR ( Amer) Est GFR (Non-Af Amer) BUN/Creatinine Ratio (10-20) Glucose (70-99) mg/dl POC Glucose 122 H 105 H (70-99) mg/dl Calcium (8.5-10.1) mg/dl
[2019-11-26] MEDS: cefTRIAXone SODIUM 2,000 MG in DEXTROSE 5% 50 ML IV SCH (16:34)
--- NOTE | 2019-11-26 16:34 | Hospitalist Progress Note ---
Date of Service November 26, 2019 Assessment & Plan (1) Sepsis: (2) UTI (urinary tract infection): Present on admission with unresponsive with Leukocytosis, elevated lactic acid and hypotension CXR showed no focal opacity and no large effusion or pneumothorax Urine cx positive for gram negative bacilli (Klebsiella pneumonia) lactic acid normalized and WBC trending down Blood cx no growth Was starting on IV Zosyn and Dapto ID on board Dapto discontinued IV zosyn changed to Rocephin IV for now Will transition to cefdinir on discharge to complete a total of 7 days course of abx Blood pressure has been stable Clinically stable (3) Small bowel obstruction: (4) Abdominal pain: Abdominal discomfort associated with nausea, vomiting KUB showed diffuse gaseous distention of small and large bowel could represent significant ileus. However, the stacked configuration of small bowel makes obstruction difficult to exclude. Stools negative for Cdiff, Salmonella, Shigella and Campylobacter CT abd/pelvi showed proximal small bowel is distended and fluid-filled. There are decompressed loops of distal small bowel in the right lower quadrant, and the appearance strongly suggests small bowel obstruction. Cholelithiasis within a distended gallbladder. Gallbladder u/s showed cholelithiasis within a distended gallbladder. There is no sonographic evidence of acute cholecystitis. Continue antiemetic and gentle hydration for now Surgery on board Repeat CT abd showed persistent multiple dilated loops of small bowel with air- fluid levels are noted in conjunction without a discrete transition point identified. Additionally, there is gaseous distention with circumferential wall thickening involving the sigmoid colon. No episode of vomiting since yesterday morning No indication for any surgical intervention as per surgery Diet advanced to full liquid Continue morphine IV for pain Continue gentle hydration Clinically improves Will continue monitor closely (5) Altered mental state: Possible related to metabolic encephalopathy secondary to sepsis. CT head showed no acute changes No focal neuro deficit Clinically improves significantly resolved (6) Renal insufficiency: Acute Kidney Injury Possible related to dehydration due to sepsis BUN: 42, Cr: 1.9, GFR: 29 on admission, Unsure of pt's baseline renal functions Received IVF Creatinine normalizes Continue monitor renal functions Avoid nephrotoxic agents when possible (7) Hypokalemia: K 3.4 K replaced Monitor BMP (8) Sacral ulcer: Noted superficial sacral ulcer without surrounding erythema Wound care on board Continue daily wound care (9) Seizure disorder: History seizure disorder. Unsure when last seizure activity Continue Keppra IV for now since NPO Continue seizure protocol (10) CAD (coronary artery disease): aspirin, Plavix on hold for now due to NPO Will resume statin since will d/c Dapto in am Denies any chest pain (11) Diabetes mellitus, type II: Metformin on hold Hba1c 7.1 Continue NovoLog sliding scale per protocol Continue monitor BS (12) HTN (hypertension): Hypotensive on admission Continue to hold lisinopril, HCTZ Continue metoprolol with holding parameters Continue monitor BP denny (13) Iron deficiency anemia: Hgb dropped to 8.8 today Continue iron supplement Will monitor Hgb, transfuse if continue to drop DVT Prophylaxis Heparin on hold (may anticipate any surgical procedure) On SCDs CODE status Full Code Disposition Will transfer to Medical Admission and Anticipated Discharge Date Admission Date: November 20, 2019 Subjective Pt was seen and examined Lying in bed with no distress Pt said that she had a rough night She said that she had a few episodes of vomiting last night She said that she feels a little better this morning She tolerated her full liquid diet this morning Denies any chest pain, palpitation, dizziness and SOB Physical Exam Physical Exam: General- No acute distress Head- atraumatic Eyes- PERRL, EOMI, ENT- oropharynx clear Neck- supple, no JVD Lungs- clear to auscultation Heart- regular rhythm; no murmur Abdomen- Nontender Extremities- no calf tenderness Neuro- alert, oriented x 3; PERRL, EOMI; no facial palsy; no dysarthria Skin- warm & dry Results & Data Results & Data ([facility]) Vital Signs (Past 12 Hours) Vital Signs Temp Pulse Pulse Resp BP BP Pulse Ox 11/26/19 15:16 71 11/26/19 15:02 37.1 C 73 19 135/72 100 11/26/19 11:23 37.2 C 69 16 138/71 100 11/26/19 07:00 36.9 C 83 16 144/77 H 100 11/26/19 04:39 36.5 C 83 16 130/72 98
[2019-11-26] MEDS: MoRPHine SULFATE 2 MG/ML CARP IV PRN (20:01)
[2019-11-26] MEDS: HEPARIN SOD 5,000 UNIT/0.5 ML VIAL SQ SCH (20:57)
[2019-11-27] MEDS: HEPARIN SOD 5,000 UNIT/0.5 ML VIAL SQ SCH ×3 (05:38→21:04)
[2019-11-27] MEDS: FERROUS SULFATE 325 MG TAB PO SCH (08:10)
[2019-11-27] MEDS: ASPIRIN 81 MG ECTAB PO SCH (08:10)
[2019-11-27] MEDS: CLOPIDOGREL BISULFATE 75 MG TAB PO SCH (08:11)
[2019-11-27] MEDS: METOPROLOL TARTRATE 100 MG TAB PO SCH (08:11)
[2019-11-27] MEDS: PANTOprazole 40 MG TAB PO SCH (08:11)
[2019-11-27] MEDS: INSULIN GLARGINE SOLOSTAR 100 UNITS/ML 3 ML PEN SC SCH ×2 (08:16→21:03)
[2019-11-27] MEDS: INSULIN ASPART 100 UNITS/ML 3 ML PEN SC SCH ×4 (08:16→21:03)
[2019-11-27] MEDS: levETIRAcetam 250 MG TAB PO SCH ×2 (09:03→18:07)
--- NOTE | 2019-11-27 13:51 | Hospitalist Progress Note ---
Date of Service November 27, 2019 Assessment & Plan (1) Sepsis: Pt is 59 y/o F with PMH HTN, DM II, CAD, seizure disorder, h/o brain tumor s/p surgery, Charcot joint, ambulatory dysfunction, dementia, iron deficiency anemia, HLD presented to ER from [facility] with complaint of unresponsiveness. History obtained from ER staff and [facility] staff and report pt at baseline this morning and at noon checked and pt unresponsive with BSG 200, BP 103/80, 86% on room air, reported normal pulse, afebrile. Report when EMS arrived patient's SBP's were in the 60s. Staff denies any recent fevers, cough, SOB. Recently treated for LLE cellulitis with Keflex. Secondary to UTI and management as below (2) UTI (urinary tract infection): Present on admission with unresponsive with Leukocytosis, elevated lactic acid and hypotension CXR showed no focal opacity and no large effusion or pneumothorax Urine cx positive for gram negative bacilli (Klebsiella pneumonia) lactic acid normalized and WBC trending down Blood cx no growth Received IV Zosyn and Dapto now on intravenous Rocephin ID on board-appreciate input and recommendation Will transition to cefdinir on discharge to complete a total of 7 days course of abx Remains stable but generally weak and lethargic We will get PT and OT evaluation (3) Small bowel obstruction: repeat CT scan showing more of enteritis/diarrheal state with no transition zone + stool output abdomen soft, nondistended, tender LUQ/Left side today but no guarding or peritonitis no leukocytosis Appreciate surgery input and recommendation Continue with the conservative management Will advance diet to full liquid (4) Abdominal pain: Abdominal discomfort associated with nausea, vomiting KUB showed diffuse gaseous distention of small and large bowel could represent significant ileus. However, the stacked configuration of small bowel makes obstruction difficult to exclude. Stools negative for Cdiff, Salmonella, Shigella and Campylobacter CT abd/pelvi showed proximal small bowel is distended and fluid-filled. There are decompressed loops of distal small bowel in the right lower quadrant, and the appearance strongly suggests small bowel obstruction. Cholelithiasis within a distended gallbladder. Gallbladder u/s showed cholelithiasis within a distended gallbladder. There is no sonographic evidence of acute cholecystitis. Continue antiemetic and gentle hydration for now Repeat CT abd showed persistent multiple dilated loops of small bowel with air- fluid levels are noted in conjunction without a discrete transition point identified. Additionally, there is gaseous distention with circumferential wall thickening involving the sigmoid colon. No episode of vomiting since yesterday morning No indication for any surgical intervention as per surgery Diet advanced to full liquid Continue morphine IV for pain Continue gentle hydration Clinically improves We will ask for PT and OT evaluation (5) Altered mental state: Possible related to metabolic encephalopathy secondary to sepsis. CT head showed no acute changes No focal neuro deficit Clinically improves significantly resolved (6) Renal insufficiency: Acute Kidney Injury Possible related to dehydration due to sepsis BUN: 42, Cr: 1.9, GFR: 29 on admission, Unsure of pt's baseline renal functions Received IVF Creatinine normalizes Continue monitor renal functions Avoid nephrotoxic agents when possible Kidney function remains stable (7) Hypokalemia: K 3.4 K replaced Monitor BMP (8) Sacral ulcer: Noted superficial sacral ulcer without surrounding erythema Wound care on board Continue daily wound care (9) Seizure disorder: History seizure disorder. Unsure when last seizure activity Continue Keppra IV for now since NPO Continue seizure protocol (10) CAD (coronary artery disease): aspirin, Plavix on hold for now due to NPO Will resume statin since will d/c Dapto in am Denies any chest pain (11) Diabetes mellitus, type II: Metformin on hold Hba1c 7.1 Continue NovoLog sliding scale per protocol Continue monitor BS (12) HTN (hypertension): Hypotensive on admission Continue to hold lisinopril, HCTZ Continue metoprolol with holding parameters Continue monitor BP denny (13) Iron deficiency anemia: Hgb dropped to 8.8 today Continue iron supplement Will monitor Hgb, transfuse if continue to drop DVT Prophylaxis Heparin on hold (may anticipate any surgical procedure) On SCDs CODE status Full Code Disposition Will transfer to Medical Admission and Anticipated Discharge Date Admission Date: November 20, 2019 Subjective 11/27/2019 The patient was seen and examined in medical unit She complains to have abdominal discomfort and generalized weakness Denies any fever and/or chills Review of Systems Review of Systems: All systems reviewed and are unremarkable except as noted below Gastrointestinal: + bloating and + nausea; no vomiting Neurologic: + generalized weakness Physical Exam Physical Exam: Lying in the bed without any acute distress Constitutional: well developed and + ill appearing; no acute distress Eyes: PERRL, conjunctivae normal, anicteric sclerae ENMT: external ear and nose normal, oropharynx normal Neck: trachea midline, no thyromegaly Respiratory: normal respiratory effort; no respiratory distress Auscultation: lungs clear to auscultation bilaterally Cardiovascular: Rate/Rhythm: regular rate and regular rhythm Heart Sounds: no murmur Gastrointestinal (Abdomen): Inspection/Auscultation: abdomen normal to inspection Percussion/Palpation: + abdomen tender (Minimally tender lower abdomen) and abdomen soft Musculoskeletal: No acute arthritis involving any joints Neurologic: moves all extremities Alert and awake. Pleasantly confused Results & Data Results & Data ([facility]) Vital Signs (Past 12 Hours) Vital Signs Temp Pulse Resp BP Pulse Ox 11/27/19 07:30 36.8 C 76 18 130/74 98 Medications Administered Current Inpatient Medications Acetaminophen (Tylenol) 650 mg PO Q4H PRN PRN Reason: Pain or Fever Stop: 12/20/19 17:33 Aspirin (Ecotrin Ectab) 81 mg PO [facility] Stop: 12/21/19 08:59 Last Admin: 11/27/19 08:10 Dose: 81 mg Documented by: Clopidogrel Bisulfate (Plavix) 75 mg PO QAM [facility] Stop: 12/21/19 08:59 Last Admin: 11/27/19 08:11 Dose: 75 mg Documented by: Dextrose (Dextrose 50%) 25 - 50 ml IV UD PRN; Protocol PRN Reason: Hypoglycemia Protocol Stop: 12/20/19 17:33 Ferrous S[facility] ([facility]osol) [facility] Stop: 12/21/19 08:59 Last Admin: 11/27/19 08:10 Dose: 325 mg Documented by: Glucagon (Glucagen) 1 mg SQ UD PRN; Protocol PRN Reason: Hypoglycemia Protocol Stop: 12/20/19 17:33 Glucose (Glucose 40%) 15 - 30 gm PO UD PRN; Protocol PRN Reason: Hypoglycemia Protocol Stop: 12/20/19 17:33 Glucose (Dex4 Glucose) 4 - 8 tabs PO UD PRN; Protocol PRN Reason: Hypoglycemia Protocol Stop: 12/20/19 17:33 Heparin Sodium (Porcine) (Heparin Sodium (Porcine)) 5,000 units SQ Q8 [facility] Stop: 12/20/19 21:59 Last Admin: 11/27/19 12:27 Dose: 5,000 units Documented by: Hydralazine HCl (Hydralazine Hcl) 10 mg IV Q6H PRN PRN Reason: SBP above 170 Stop: 12/25/19 08:35 Last Admin: 11/25/19 12:11 Dose: 10 mg Documented by: Ceftriaxone Sodium 2,000 mg/ (Dextrose) 70 mls @ 140 mls/hr IV Q24H [facility] Stop: 11/30/19 15:59 Last Infusion: 11/26/19 17:10 Dose: Infused Documented by: Insulin Aspart (Novolog Flexpen) 0 units SC ACHS [facility] Stop: 12/24/19 16:29 Last Admin: 11/27/19 12:28 Dose: Not Given Documented by: Insulin Glargine (Lantus Solostar Pen) 5 units SC BID [facility] Stop: 12/20/19 21:44 Last Admin: 11/27/19 08:16 Dose: 5 units Documented by: Levetiracetam (Keppra) 750 mg PO BID@0900,1800 [facility] Stop: 12/21/19 08:59 Last Admin: 11/27/19 09:03 Dose: 750 mg Documented by: Metoprolol Tartrate (Lopressor) 100 mg PO [facility] Stop: 12/21/19 08:59 Last Admin: 11/27/19 08:11 Dose: 100 mg Documented by: Miscellaneous (Carbohydrates For Hypoglycemia) 15 - 30 gm PO UD PRN PRN Reason: Hypoglycemia Protocol Stop: 12/20/19 17:33 Morphine Sulfate (Morphine Sulfate) 2 mg IV Q4H PRN PRN Reason: Pain Stop: 12/06/19 18:25 Last Admin: 11/26/19 20:01 Dose: 2 mg Documented by: Ondansetron HCl (Zofran) 4 mg IV Q6H PRN PRN Reason: Nausea Stop: 12/20/19 17:33 Last Admin: 11/26/19 08:52 Dose: 4 mg Documented by: Pantoprazole Sodium (Protonix) 40 mg PO QAM [facility] Stop: 12/21/19 08:59 Last Admin: 11/27/19 08:11 Dose: 40 mg Documented by:
[2019-11-27] MEDS: MoRPHine SULFATE 2 MG/ML CARP IV PRN (15:16)
[2019-11-27] MEDS: ONDANSETRON INJ 2 MG/ML 2 ML VIAL IV PRN ×2 (15:17→19:55)
[2019-11-27] MEDS: cefTRIAXone SODIUM 2,000 MG in DEXTROSE 5% 50 ML IV SCH (15:51)
--- NOTE | 2019-11-27 16:42 | Surgery Progress Note ---
Date of Service pt said she is doing better than yesterday, pt denies nausea, no vomiting, passed gas, she tolerated full liquid diet, November 27, 2019 Assessment & Plan (1) Small bowel obstruction: repeat CT scan showing more of enteritis/diarrheal state with no transition zone + stool output abdomen soft, nondistended, tender LUQ/Left side today but no guarding or peritonitis no leukocytosis Plan: No acute surgical indication at this time. May advance diet slowly as tolerated continue current medical management will follow Dr. Beauchamp has seen and examined pt, agrees with above 11/27/2019 4:41PM doing better, no surgery indication now, sign off today, please call us with any questions,thanks, Supervising Physician Co-Signing Physician Notes I interviewed and examined this patient I agree with the above note. She tolerated the full liquids. Her abdomen is less tender. She is having less pain. She continues to put out liquid stool. Consider advancing diet as tolerated. Subjective 11/27/2019 The patient was seen and examined in medical unit She complains to have abdominal discomfort and generalized weakness Denies any fever and/or chills Physical Exam Constitutional: WD/WN, vitals as above Eyes: PERRL, conjunctivae normal, anicteric sclerae Neck: trachea midline, no thyromegaly Respiratory: normal respiratory effort, lungs clear to auscultation Gastrointestinal (Abdomen): Percussion/Palpation: abdomen soft no distend, BS +, NT, Skin: no rashes, warm and dry Neurologic: patellar DTR's 2+ bilat, sensation intact Psychiatric: Orientation: alert and oriented x 3 Results & Data Vital Signs (Past 12 Hours) Vital Signs Temp Pulse Resp BP BP Pulse Ox 11/27/19 15:25 36.9 C 73 20 138/77 98 11/27/19 07:30 36.8 C 76 18 130/74 98
[2019-11-27] MEDS: HydrALAZINE HCL 20 MG/ML VIAL IV PRN (19:55)
[2019-11-28] MEDS: HEPARIN SOD 5,000 UNIT/0.5 ML VIAL SQ SCH ×3 (05:37→20:38)
[2019-11-28 05:52] LABS: Basophils # (auto) 0.02 K/uL (0-0.2); Basophils % (auto) 0.2 %; Hematocrit (blood only) 25.8 % (37-47); Hemoglobin 8.3 g/dL (12.0-16.0); Immature Granulocytes # (auto) 0.04 K/uL (0.00-0.02); Immature Granulocytes % (auto) 0.4 %; Lymphocytes % (auto) 25.7 %; Mean Corpuscular Hgb Conc 32.2 g/dL (32-36); Mean Platelet Volume 8.7 fL (7.4-10.4); Monocytes # (auto) 0.59 K/uL (0.11-0.59); Monocytes % (auto) 5.8 %; Neutrophils # (auto) 6.68 K/uL (1.4-6.5); Neutrophils % (auto) 65.9 %; Platelet Count 397 K/uL (130-400); RDW Coefficient of Variation 15.8 % (11.5-14.5); RDW Standard Deviation 48.4 fL (36.4-46.3); Red Blood Count 3.07 M/uL (4.2-5.4); White Blood Count 10.13 K/uL (4.8-10.8)
[2019-11-28 06:36] LABS: BUN Creatinine Ratio 21.4 (10-20); Calcium 8.2 mg/dl (8.5-10.1); Creatinine Clr Calc Pharmacy 170.1 ml/min; Est GFR (African American) 130.3; Est GFR (Non-African American) 112.4; Magnesium 1.7 mg/dl (1.8-2.4); Phosphorus 3.7 mg/dl (2.5-4.9); Potassium 3.5 mmol/L (3.5-5.1)
[2019-11-28] MEDS: levETIRAcetam 250 MG TAB PO SCH ×2 (07:51→17:30)
[2019-11-28] MEDS: METOPROLOL TARTRATE 100 MG TAB PO SCH (07:51)
[2019-11-28] MEDS: PANTOprazole 40 MG TAB PO SCH (07:51)
[2019-11-28] MEDS: FERROUS SULFATE 325 MG TAB PO SCH (07:51)
[2019-11-28] MEDS: CLOPIDOGREL BISULFATE 75 MG TAB PO SCH (07:51)
[2019-11-28] MEDS: ASPIRIN 81 MG ECTAB PO SCH (07:51)
[2019-11-28] MEDS: INSULIN GLARGINE SOLOSTAR 100 UNITS/ML 3 ML PEN SC SCH ×2 (07:55→20:37)
[2019-11-28] MEDS: INSULIN ASPART 100 UNITS/ML 3 ML PEN SC SCH ×4 (07:56→20:38)
[2019-11-28] MEDS: ACETAMINOPHEN 325 MG TAB PO PRN (15:47)
[2019-11-28] MEDS: CEFDINIR 300 MG CAP PO SCH (17:30)
[2019-11-28] MEDS: cefTRIAXone SODIUM 2,000 MG in DEXTROSE 5% 50 ML IV SCH (17:39)
[2019-11-29] MEDS: HEPARIN SOD 5,000 UNIT/0.5 ML VIAL SQ SCH ×3 (05:27→20:44)
[2019-11-29 07:20] LABS: Hematocrit (blood only) 24.3 % (37-47); Hemoglobin 8.1 g/dL (12.0-16.0); Mean Corpuscular Hemoglobin 27.7 pg (25-34); Mean Corpuscular Hgb Conc 33.3 g/dL (32-36); Mean Corpuscular Volume 83.2 fL (80-100); Mean Platelet Volume 8.3 fL (7.4-10.4); Platelet Count 426 K/uL (130-400); RDW Coefficient of Variation 15.4 % (11.5-14.5); RDW Standard Deviation 46.6 fL (36.4-46.3); Red Blood Count 2.92 M/uL (4.2-5.4); White Blood Count 8.52 K/uL (4.8-10.8)
--- NOTE | 2019-11-29 08:08 | Hospitalist Progress Note ---
Date of Service November 28, 2019 Assessment & Plan (1) Sepsis: Pt is 59 y/o F with PMH HTN, DM II, CAD, seizure disorder, h/o brain tumor s/p surgery, Charcot joint, ambulatory dysfunction, dementia, iron deficiency anemia, HLD presented to ER from [facility] with complaint of unresponsiveness. History obtained from ER staff and [facility] staff and report pt at baseline this morning and at noon checked and pt unresponsive with BSG 200, BP 103/80, 86% on room air, reported normal pulse, afebrile. Report when EMS arrived patient's SBP's were in the 60s. Staff denies any recent fevers, cough, SOB. Recently treated for LLE cellulitis with Keflex. Secondary to UTI and management as below (2) UTI (urinary tract infection): Present on admission with unresponsive with Leukocytosis, elevated lactic acid and hypotension CXR showed no focal opacity and no large effusion or pneumothorax Urine cx positive for gram negative bacilli (Klebsiella pneumonia) lactic acid normalized and WBC trending down Blood cx no growth Received IV Zosyn and Dapto now on intravenous Rocephin ID on board-appreciate input and recommendation Will transition to cefdinir on discharge to complete a total of 7 days course of abx Remains stable but generally weak and lethargic We will get PT and OT evaluation Started on oral cefdinir and will be continued for a total of 7 days (3) Small bowel obstruction: repeat CT scan showing more of enteritis/diarrheal state with no transition zone + stool output abdomen soft, nondistended, tender LUQ/Left side today but no guarding or peritonitis no leukocytosis Appreciate surgery input and recommendation Continue with the conservative management Will advance diet to full liquid (4) Abdominal pain: Abdominal discomfort associated with nausea, vomiting KUB showed diffuse gaseous distention of small and large bowel could represent significant ileus. However, the stacked configuration of small bowel makes obstruction difficult to exclude. Stools negative for Cdiff, Salmonella, Shigella and Campylobacter CT abd/pelvi showed proximal small bowel is distended and fluid-filled. There are decompressed loops of distal small bowel in the right lower quadrant, and the appearance strongly suggests small bowel obstruction. Cholelithiasis within a distended gallbladder. Gallbladder u/s showed cholelithiasis within a distended gallbladder. There is no sonographic evidence of acute cholecystitis. Continue antiemetic and gentle hydration for now Repeat CT abd showed persistent multiple dilated loops of small bowel with air- fluid levels are noted in conjunction without a discrete transition point identified. Additionally, there is gaseous distention with circumferential wall thickening involving the sigmoid colon. No episode of vomiting since yesterday morning No indication for any surgical intervention as per surgery Diet advanced to full liquid and advance as tolerated We will ask for PT and OT evaluation (5) Altered mental state: Possible related to metabolic encephalopathy secondary to sepsis. CT head showed no acute changes No focal neuro deficit Clinically improves significantly resolved (6) Renal insufficiency: Acute Kidney Injury Possible related to dehydration due to sepsis BUN: 42, Cr: 1.9, GFR: 29 on admission, Unsure of pt's baseline renal functions Received IVF Creatinine normalizes Continue monitor renal functions Avoid nephrotoxic agents when possible Kidney function remains stable (7) Hypokalemia: K 3.4 K replaced Monitor BMP (8) Sacral ulcer: Noted superficial sacral ulcer without surrounding erythema Wound care on board Continue daily wound care (9) Seizure disorder: History seizure disorder. Unsure when last seizure activity Continue Keppra IV for now since NPO Continue seizure protocol (10) CAD (coronary artery disease): aspirin, Plavix on hold for now due to NPO Will resume statin since will d/c Dapto in am Denies any chest pain (11) Diabetes mellitus, type II: Metformin on hold Hba1c 7.1 Continue NovoLog sliding scale per protocol Continue monitor BS (12) HTN (hypertension): Hypotensive on admission Continue to hold lisinopril, HCTZ Continue metoprolol with holding parameters Continue monitor BP denny (13) Iron deficiency anemia: Hgb dropped to 8.8 today Continue iron supplement Will monitor Hgb, transfuse if continue to drop DVT Prophylaxis Heparin on hold (may anticipate any surgical procedure) On SCDs CODE status Full Code Disposition Will be discharged to SNF tomorrow Admission and Anticipated Discharge Date Admission Date: November 20, 2019 Subjective 11/27/2019 The patient was seen and examined in medical unit She complains to have abdominal discomfort and generalized weakness Denies any fever and/or chills 11/28/2019 The patient was seen and examined in the medical floor She has been feeling a lot better today Except mild nausea she does not have any other significant symptoms Review of Systems Review of Systems: All systems reviewed and are unremarkable except as noted below Gastrointestinal: + nausea; no bloating and no vomiting Neurologic: + generalized weakness Physical Exam Physical Exam: Lying in the bed without any acute distress Constitutional: well developed and + ill appearing; no acute distress Eyes: PERRL, conjunctivae normal, anicteric sclerae ENMT: external ear and nose normal, oropharynx normal Neck: trachea midline, no thyromegaly Respiratory: normal respiratory effort; no respiratory distress Auscultation: lungs clear to auscultation bilaterally Cardiovascular: Rate/Rhythm: regular rate and regular rhythm Heart Sounds: no murmur Gastrointestinal (Abdomen): Inspection/Auscultation: abdomen normal to inspection and normal bowel sounds Percussion/Palpation: + abdomen tender (Minimally tender lower abdomen) and abdomen soft Neurologic: moves all extremities Lymphatic: no cervical or axillary lymphadenopathy Results & Data Results & Data ([facility]) Vital Signs (Past 12 Hours) Vital Signs Temp Pulse Resp BP Pulse Ox 11/28/19 23:29 36.8 C 76 16 150/75 H 99 Laboratory Results Short CBC 11/29/19 Range/Units 07:02 WBC 8.52 (4.8-10.8) K/uL Hgb 8.1 L (12.0-16.0) g/dL Hct 24.3 L (37-47) % Plt Count 426 H (130-400) K/uL Medications Administered Current Inpatient Medications Acetaminophen (Tylenol) 650 mg PO Q4H PRN PRN Reason: Pain or Fever Stop: 12/20/19 17:33 Last Admin: 11/28/19 15:47 Dose: 650 mg Documented by: Aspirin (Ecotrin Ectab) 81 mg PO [facility] Stop: 12/21/19 08:59 Last Admin: 11/28/19 07:51 Dose: 81 mg Documented by: Cefdinir (Omnicef Cap) 300 mg PO BID [facility]; Protocol Stop: 12/05/19 16:59 Last Admin: 11/28/19 17:30 Dose: 300 mg Documented by: Clopidogrel Bisulfate (Plavix) 75 mg PO [facility] Stop: 12/21/19 08:59 Last Admin: 11/28/19 07:51 Dose: 75 mg Documented by: Dextrose (Dextrose 50%) 25 - 50 ml IV UD PRN; Protocol PRN Reason: Hypoglycemia Protocol Stop: 12/20/19 17:33 Ferrous Sulfate (Feosol) 325 mg PO M [facility] Stop: 12/21/19 08:59 Last Admin: 11/28/19 07:51 Dose: 325 mg Documented by: Glucagon (Glucagen) 1 mg SQ UD PRN; Protocol PRN Reason: Hypoglycemia Protocol Stop: 12/20/19 17:33 Glucose (Glucose 40%) 15 - 30 gm PO UD PRN; Protocol PRN Reason: Hypoglycemia Protocol Stop: 12/20/19 17:33 Glucose (Dex4 Glucose) 4 - 8 tabs PO UD PRN; Protocol PRN Reason: Hypoglycemia Protocol Stop: 12/20/19 17:33 Heparin Sodium (Porcine) (Heparin Sodium (Porcine)) 5,000 units SQ Q8 [facility] Stop: 12/20/19 21:59 Last Admin: 11/29/19 05:27 Dose: 5,000 units Documented by: Hydralazine HCl (Hydralazine Hcl) 10 mg IV Q6H PRN PRN Reason: SBP above 170 Stop: 12/25/19 08:35 Last Admin: 11/27/19 19:55 Dose: 10 mg Documented by: Insulin Aspart (Novolog Flexpen) 0 units SC ACHS [facility] Stop: 12/24/19 16:29 Last Admin: 11/28/19 20:38 Dose: Not Given Documented by: Insulin Glargine (Lantus Solostar Pen) 5 units SC BID [facility] Stop: 12/20/19 21:44 Last Admin: 11/28/19 20:37 Dose: 5 units Documented by: Levetiracetam (Keppra) 750 mg PO BID@0900,1800 [facility] Stop: 12/21/19 08:59 Last Admin: 11/28/19 17:30 Dose: 750 mg Documented by: Metoprolol Tartrate (Lopressor) 100 mg PO QAM [facility] Stop: 12/21/19 08:59 Last Admin: 11/28/19 07:51 Dose: 100 mg Documented by: Miscellaneous (Carbohydrates For Hypoglycemia) 15 - 30 gm PO UD PRN PRN Reason: Hypoglycemia Protocol Stop: 12/20/19 17:33 Morphine Sulfate (Morphine Sulfate) 2 mg IV Q4H PRN PRN Reason: Pain Stop: 12/06/19 18:25 Last Admin: 11/27/19 15:16 Dose: 2 mg Documented by: Ondansetron HCl (Zofran) 4 mg IV Q6H PRN PRN Reason: Nausea Stop: 12/20/19 17:33 Last Admin: 11/27/19 15:17 Dose: 4 mg Documented by: Pantoprazole Sodium (Protonix) 40 mg PO [facility] Stop: 12/21/19 08:59 Last Admin: 11/28/19 07:51 Dose: 40 mg Documented by:
[2019-11-29] MEDS: CEFDINIR 300 MG CAP PO SCH ×2 (08:09→20:42)
[2019-11-29] MEDS: METOPROLOL TARTRATE 100 MG TAB PO SCH (08:09)
[2019-11-29] MEDS: FERROUS SULFATE 325 MG TAB PO SCH (08:09)
[2019-11-29] MEDS: ASPIRIN 81 MG ECTAB PO SCH (08:09)
[2019-11-29] MEDS: CLOPIDOGREL BISULFATE 75 MG TAB PO SCH (08:09)
[2019-11-29] MEDS: levETIRAcetam 250 MG TAB PO SCH ×2 (08:09→17:19)
[2019-11-29] MEDS: PANTOprazole 40 MG TAB PO SCH (08:10)
[2019-11-29] MEDS: INSULIN GLARGINE SOLOSTAR 100 UNITS/ML 3 ML PEN SC SCH ×2 (08:14→20:42)
[2019-11-29] MEDS: INSULIN ASPART 100 UNITS/ML 3 ML PEN SC SCH ×4 (08:14→20:42)
--- NOTE | 2019-11-29 11:38 | Hospitalist Progress Note ---
Date of Service November 29, 2019 Assessment & Plan (1) Sepsis: Pt is 59 y/o F with PMH HTN, DM II, CAD, seizure disorder, h/o brain tumor s/p surgery, Charcot joint, ambulatory dysfunction, dementia, iron deficiency anemia, HLD presented to ER from [facility] with complaint of unresponsiveness. History obtained from ER staff and [facility] staff and report pt at baseline this morning and at noon checked and pt unresponsive with BSG 200, BP 103/80, 86% on room air, reported normal pulse, afebrile. Report when EMS arrived patient's SBP's were in the 60s. Staff denies any recent fevers, cough, SOB. Recently treated for LLE cellulitis with Keflex. Secondary to UTI and management as below (2) UTI (urinary tract infection): Present on admission with unresponsive with Leukocytosis, elevated lactic acid and hypotension CXR showed no focal opacity and no large effusion or pneumothorax Urine cx positive for gram negative bacilli (Klebsiella pneumonia) lactic acid normalized and WBC trending down Blood cx no growth Received IV Zosyn and Dapto now on intravenous Rocephin ID on board-appreciate input and recommendation Will transition to cefdinir on discharge to complete a total of 7 days course of abx Remains stable but generally weak and lethargic We will get PT and OT evaluation-she will not need any PT and OT evaluation Started on oral cefdinir and will be continued for a total of 7 days Remains stable without any acute symptoms (3) Small bowel obstruction: repeat CT scan showing more of enteritis/diarrheal state with no transition zone + stool output abdomen soft, nondistended, tender LUQ/Left side today but no guarding or peritonitis no leukocytosis Appreciate surgery input and recommendation Continue with the conservative management Will advance diet to full liquid Has been tolerating regular diet without any signs and/or symptoms of obstruction (4) Abdominal pain: Abdominal discomfort associated with nausea, vomiting KUB showed diffuse gaseous distention of small and large bowel could represent significant ileus. However, the stacked configuration of small bowel makes obstruction difficult to exclude. Stools negative for Cdiff, Salmonella, Shigella and Campylobacter CT abd/pelvi showed proximal small bowel is distended and fluid-filled. There are decompressed loops of distal small bowel in the right lower quadrant, and the appearance strongly suggests small bowel obstruction. Cholelithiasis within a distended gallbladder. Gallbladder u/s showed cholelithiasis within a distended gallbladder. There is no sonographic evidence of acute cholecystitis. Continue antiemetic and gentle hydration for now Repeat CT abd showed persistent multiple dilated loops of small bowel with air- fluid levels are noted in conjunction without a discrete transition point identified. Additionally, there is gaseous distention with circumferential wall thickening involving the sigmoid colon. No episode of vomiting since yesterday morning No indication for any surgical intervention as per surgery Denies any more abdominal pain (5) Altered mental state: Possible related to metabolic encephalopathy secondary to sepsis. CT head showed no acute changes No focal neuro deficit Clinically improves significantly resolved (6) Renal insufficiency: Acute Kidney Injury Possible related to dehydration due to sepsis BUN: 42, Cr: 1.9, GFR: 29 on admission, Unsure of pt's baseline renal functions Received IVF Creatinine normalizes Continue monitor renal functions Avoid nephrotoxic agents when possible Kidney function remains stable (7) Hypokalemia: K 3.4 K replaced Monitor BMP (8) Sacral ulcer: Noted superficial sacral ulcer without surrounding erythema Wound care on board Continue daily wound care (9) Seizure disorder: History seizure disorder. Unsure when last seizure activity Continue Keppra IV for now since NPO Continue seizure protocol (10) CAD (coronary artery disease): aspirin, Plavix on hold for now due to NPO Will resume statin since will d/c Dapto in am Denies any chest pain (11) Diabetes mellitus, type II: Metformin on hold Hba1c 7.1 Continue NovoLog sliding scale per protocol Continue monitor BS (12) HTN (hypertension): Hypotensive on admission Continue to hold lisinopril, HCTZ Continue metoprolol with holding parameters Continue monitor BP denyn (13) Iron deficiency anemia: Hgb dropped to 8.8 today Continue iron supplement Will monitor Hgb, transfuse if continue to drop DVT Prophylaxis Heparin on hold (may anticipate any surgical procedure) On SCDs CODE status Full Code Disposition Will be discharged to SNF today Admission and Anticipated Discharge Date Admission Date: November 20, 2019 Subjective 11/27/2019 The patient was seen and examined in medical unit She complains to have abdominal discomfort and generalized weakness Denies any fever and/or chills 11/28/2019 The patient was seen and examined in the medical floor She has been feeling a lot better today Except mild nausea she does not have any other significant symptoms 11/29/2019 Patient was seen and examined in medical floor She remains stable and denies any symptoms as of today She has been tolerating regular diet Denies any significant symptoms Review of Systems Review of Systems: All systems reviewed and are unremarkable except as noted below Gastrointestinal: no bloating, no nausea and no vomiting Neurologic: + generalized weakness Physical Exam Physical Exam: Lying in the bed without any acute distress Constitutional: well developed; no acute distress and not ill appearing Eyes: PERRL, conjunctivae normal, anicteric sclerae ENMT: external ear and nose normal, oropharynx normal Neck: trachea midline, no thyromegaly Respiratory: normal respiratory effort; no respiratory distress Auscultation: lungs clear to auscultation bilaterally Cardiovascular: Rate/Rhythm: regular rate and regular rhythm Heart Sounds: no murmur Gastrointestinal (Abdomen): Inspection/Auscultation: abdomen normal to inspection and normal bowel sounds Percussion/Palpation: + abdomen tender (Minimally tender lower abdomen) and abdomen soft Neurologic: moves all extremities Lymphatic: no cervical or axillary lymphadenopathy Results & Data Results & Data ([facility]) Vital Signs (Past 12 Hours) Vital Signs Temp Pulse Resp BP Pulse Ox 11/29/19 08:07 36.8 C 83 18 161/81 H 99 Laboratory Results Short CBC 11/29/19 Range/Units 07:02 WBC 8.52 (4.8-10.8) K/uL Hgb 8.1 L (12.0-16.0) g/dL Hct 24.3 L (37-47) % Plt Count 426 H (130-400) K/uL Medications Administered Current Inpatient Medications Acetaminophen (Tylenol) 650 mg PO Q4H PRN PRN Reason: Pain or Fever Stop: 12/20/19 17:33 Last Admin: 11/28/19 15:47 Dose: 650 mg Documented by: [facility]ir[facility] ([facility]ab) [facility] [place] Stop: 12/21/19 08:59 Last Admin: 11/29/19 08:09 Dose: 81 mg Documented by: Cefdinir (Omnicef Cap) 300 mg PO BID [facility]; Protocol Stop: 12/05/19 16:59 Last Admin: 11/29/19 08:09 Dose: 300 mg Documented by: Clopidogrel [facility] ([facility]avix) [facility] [place] Stop: 12/21/19 08:59 Last Admin: 11/29/19 08:09 Dose: 75 mg Documented by: Dextrose (Dextrose 50%) 25 - 50 ml IV UD PRN; Protocol PRN Reason: Hypoglycemia Protocol Stop: 12/20/19 17:33 Ferrous Sulfate (Feosol) 325 mg PO QAM [facility] Stop: 12/21/19 08:59 Last Admin: 11/29/19 08:09 Dose: 325 mg Documented by: Glucagon (Glucagen) 1 mg SQ UD PRN; Protocol PRN Reason: Hypoglycemia Protocol Stop: 12/20/19 17:33 Glucose (Glucose 40%) 15 - 30 gm PO UD PRN; Protocol PRN Reason: Hypoglycemia Protocol Stop: 12/20/19 17:33 Glucose (Dex4 Glucose) 4 - 8 tabs PO UD PRN; Protocol PRN Reason: Hypoglycemia Protocol Stop: 12/20/19 17:33 Heparin Sodium (Porcine) (Heparin Sodium (Porcine)) 5,000 units SQ Q8 [facility] Stop: 12/20/19 21:59 Last Admin: 11/29/19 05:27 Dose: 5,000 units Documented by: Hydralazine HCl (Hydralazine Hcl) 10 mg IV Q6H PRN PRN Reason: SBP above 170 Stop: 12/25/19 08:35 Last Admin: 11/27/19 19:55 Dose: 10 mg Documented by: Insulin Aspart (Novolog Flexpen) 0 units SC ACHS [facility] Stop: 12/24/19 16:29 Last Admin: 11/29/19 08:14 Dose: 1 units Documented by: Insulin Glargine (Lantus Solostar Pen) 5 units SC BID [facility] Stop: 12/20/19 21:44 Last Admin: 11/29/19 08:14 Dose: 5 units Documented by: Levetiracetam (Keppra) 750 mg PO BID@0900,1800 [facility] Stop: 12/21/19 08:59 Last Admin: 11/29/19 08:09 Dose: 750 mg Documented by: Metoprolol Tartrate (Lopressor) 100 mg PO QAM [facility] Stop: 12/21/19 08:59 Last Admin: 11/29/19 08:09 Dose: 100 mg Documented by: Miscellaneous (Carbohydrates For Hypoglycemia) 15 - 30 gm PO UD PRN PRN Reason: Hypoglycemia Protocol Stop: 12/20/19 17:33 Morphine Sulfate (Morphine Sulfate) 2 mg IV Q4H PRN PRN Reason: Pain Stop: 12/06/19 18:25 Last Admin: 11/27/19 15:16 Dose: 2 mg Documented by: Ondansetron HCl (Zofran) 4 mg IV Q6H PRN PRN Reason: Nausea Stop: 12/20/19 17:33 Last Admin: 11/27/19 15:17 Dose: 4 mg Documented by: Pantoprazole Sodium (Protonix) 40 mg PO [facility] Stop: 12/21/19 08:59 Last Admin: 11/29/19 08:10 Dose: 40 mg Documented by:
[2019-11-30] MEDS: HEPARIN SOD 5,000 UNIT/0.5 ML VIAL SQ SCH ×3 (05:56→22:05)
[2019-11-30] MEDS: levETIRAcetam 250 MG TAB PO SCH ×2 (08:11→17:20)
[2019-11-30] MEDS: CLOPIDOGREL BISULFATE 75 MG TAB PO SCH (08:12)
[2019-11-30] MEDS: ASPIRIN 81 MG ECTAB PO SCH (08:12)
[2019-11-30] MEDS: INSULIN GLARGINE SOLOSTAR 100 UNITS/ML 3 ML PEN SC SCH ×2 (08:12→20:39)
[2019-11-30] MEDS: FERROUS SULFATE 325 MG TAB PO SCH (08:12)
[2019-11-30] MEDS: METOPROLOL TARTRATE 100 MG TAB PO SCH (08:12)
[2019-11-30] MEDS: PANTOprazole 40 MG TAB PO SCH (08:12)
[2019-11-30] MEDS: CEFDINIR 300 MG CAP PO SCH ×2 (08:12→20:40)
[2019-11-30] MEDS: INSULIN ASPART 100 UNITS/ML 3 ML PEN SC SCH ×4 (08:14→20:21)
--- NOTE | 2019-11-30 10:16 | Hospitalist Progress Note ---
Date of Service November 30, 2019 Assessment & Plan (1) Sepsis: Pt is 59 y/o F with PMH HTN, DM II, CAD, seizure disorder, h/o brain tumor s/p surgery, Charcot joint, ambulatory dysfunction, dementia, iron deficiency anemia, HLD presented to ER from [facility] with complaint of unresponsiveness. History obtained from ER staff and [facility] staff and report pt at baseline this morning and at noon checked and pt unresponsive with BSG 200, BP 103/80, 86% on room air, reported normal pulse, afebrile. Report when EMS arrived patient's SBP's were in the 60s. Staff denies any recent fevers, cough, SOB. Recently treated for LLE cellulitis with Keflex. Secondary to UTI and management as below (2) UTI (urinary tract infection): Present on admission with unresponsive with Leukocytosis, elevated lactic acid and hypotension CXR showed no focal opacity and no large effusion or pneumothorax Urine cx positive for gram negative bacilli (Klebsiella pneumonia) lactic acid normalized and WBC trending down Blood cx no growth Received IV Zosyn and Dapto now on intravenous Rocephin ID on board-appreciate input and recommendation Will transition to cefdinir on discharge to complete a total of 7 days course of abx Remains stable but generally weak and lethargic We will get PT and OT evaluation-she will not need any PT and OT evaluation Started on oral cefdinir and will be continued for a total of 7 days Medically stable to be discharged from the hospital (3) Small bowel obstruction: repeat CT scan showing more of enteritis/diarrheal state with no transition zone + stool output abdomen soft, nondistended, tender LUQ/Left side today but no guarding or peritonitis no leukocytosis Appreciate surgery input and recommendation Continue with the conservative management Will advance diet to full liquid Has been tolerating regular diet without any signs and/or symptoms of obstruction No signs and/or symptoms of obstruction (4) Abdominal pain: Abdominal discomfort associated with nausea, vomiting KUB showed diffuse gaseous distention of small and large bowel could represent significant ileus. However, the stacked configuration of small bowel makes obstruction difficult to exclude. Stools negative for Cdiff, Salmonella, Shigella and Campylobacter CT abd/pelvi showed proximal small bowel is distended and fluid-filled. There are decompressed loops of distal small bowel in the right lower quadrant, and the appearance strongly suggests small bowel obstruction. Cholelithiasis within a distended gallbladder. Gallbladder u/s showed cholelithiasis within a distended gallbladder. There is no sonographic evidence of acute cholecystitis. Continue antiemetic and gentle hydration for now Repeat CT abd showed persistent multiple dilated loops of small bowel with air- fluid levels are noted in conjunction without a discrete transition point identified. Additionally, there is gaseous distention with circumferential wall thickening involving the sigmoid colon. No episode of vomiting since yesterday morning No indication for any surgical intervention as per surgery Denies any more abdominal pain (5) Altered mental state: Possible related to metabolic encephalopathy secondary to sepsis. CT head showed no acute changes No focal neuro deficit Clinically improves significantly resolved (6) Renal insufficiency: Acute Kidney Injury Possible related to dehydration due to sepsis BUN: 42, Cr: 1.9, GFR: 29 on admission, Unsure of pt's baseline renal functions Received IVF Creatinine normalizes Continue monitor renal functions Avoid nephrotoxic agents when possible Kidney function remains stable (7) Hypokalemia: K 3.4 K replaced Monitor BMP (8) Sacral ulcer: Noted superficial sacral ulcer without surrounding erythema Wound care on board Continue daily wound care (9) Seizure disorder: History seizure disorder. Unsure when last seizure activity Continue Keppra IV for now since NPO Continue seizure protocol (10) CAD (coronary artery disease): aspirin, Plavix on hold for now due to NPO Will resume statin since will d/c Dapto in am Denies any chest pain (11) Diabetes mellitus, type II: Metformin on hold Hba1c 7.1 Continue NovoLog sliding scale per protocol Continue monitor BS (12) HTN (hypertension): Hypotensive on admission Continue to hold lisinopril, HCTZ Continue metoprolol with holding parameters Continue monitor BP denny (13) Iron deficiency anemia: Hgb dropped to 8.8 today Continue iron supplement Will monitor Hgb, transfuse if continue to drop DVT Prophylaxis Heparin on hold (may anticipate any surgical procedure) On SCDs CODE status Full Code Disposition Will be discharged to SNF when accepted Admission and Anticipated Discharge Date Admission Date: November 20, 2019 Subjective 11/27/2019 The patient was seen and examined in medical unit She complains to have abdominal discomfort and generalized weakness Denies any fever and/or chills 11/28/2019 The patient was seen and examined in the medical floor She has been feeling a lot better today Except mild nausea she does not have any other significant symptoms 11/29/2019 Patient was seen and examined in medical floor She remains stable and denies any symptoms as of today She has been tolerating regular diet Denies any significant symptoms 11/30/2019 The patient was seen and examined in medical floor She remains stable without any significant symptoms Denies any fever, shortness of breath, abdominal pain, distention, nausea or vomiting Review of Systems Review of Systems: All systems reviewed and are unremarkable except as noted below Neurologic: + generalized weakness Physical Exam Physical Exam: Lying in the bed without any acute distress Constitutional: well developed; no acute distress and not ill appearing Eyes: PERRL, conjunctivae normal, anicteric sclerae ENMT: external ear and nose normal, oropharynx normal Neck: trachea midline, no thyromegaly Respiratory: normal respiratory effort; no respiratory distress Auscultation: lungs clear to auscultation bilaterally Cardiovascular: Rate/Rhythm: regular rate and regular rhythm Heart Sounds: no murmur Gastrointestinal (Abdomen): Inspection/Auscultation: abdomen normal to inspection and normal bowel sounds Percussion/Palpation: + abdomen tender (Minimally tender lower abdomen) and abdomen soft Neurologic: moves all extremities Lymphatic: no cervical or axillary lymphadenopathy Results & Data Results & Data ([facility]) Vital Signs (Past 12 Hours) Vital Signs Temp Pulse Resp BP Pulse Ox 11/30/19 07:22 36.6 C 84 16 176/96 H 98 11/30/19 00:00 36.7 C 79 20 154/78 H 97 Medications Administered Current Inpatient Medications Acetaminophen (Tylenol) 650 mg PO Q4H PRN PRN Reason: Pain or Fever Stop: 12/20/19 17:33 Last Admin: 11/28/19 15:47 Dose: 650 mg Documented by: Aspirin (Ecotrin Ectab) [address] [facility] Stop: 12/21/19 08:59 Last Admin: 11/30/19 08:12 Dose: 81 mg Documented by: Cefdinir (Omnicef Cap) 300 mg PO BID [facility]; Protocol Stop: 12/05/19 16:59 Last Admin: 11/30/19 08:12 Dose: 300 mg Documented by: Clopidogrel Bisulfate (Plavix) [address] [facility] Stop: 12/21/19 08:59 Last Admin: 11/30/19 08:12 Dose: 75 mg Documented by: Dextrose (Dextrose 50%) 25 - 50 ml IV UD PRN; Protocol PRN Reason: Hypoglycemia Protocol Stop: 12/20/19 17:33 Ferrous Sulfate (Feosol) 325 mg PO QAM [facility] Stop: 12/21/19 08:59 Last Admin: 11/30/19 08:12 Dose: 325 mg Documented by: Glucagon (Glucagen) 1 mg SQ UD PRN; Protocol PRN Reason: Hypoglycemia Protocol Stop: 12/20/19 17:33 Glucose (Glucose 40%) 15 - 30 gm PO UD PRN; Protocol PRN Reason: Hypoglycemia Protocol Stop: 12/20/19 17:33 Glucose (Dex4 Glucose) 4 - 8 tabs PO UD PRN; Protocol PRN Reason: Hypoglycemia Protocol Stop: 12/20/19 17:33 Heparin Sodium (Porcine) (Heparin Sodium (Porcine)) 5,000 units SQ Q8 [facility] Stop: 12/20/19 21:59 Last Admin: 11/30/19 05:56 Dose: 5,000 units Documented by: Hydralazine HCl (Hydralazine Hcl) 10 mg IV Q6H PRN PRN Reason: SBP above 170 Stop: 12/25/19 08:35 Last Admin: 11/27/19 19:55 Dose: 10 mg Documented by: Insulin Aspart (Novolog Flexpen) 0 units SC ACHS [facility] Stop: 12/24/19 16:29 Last Admin: 11/30/19 08:14 Dose: Not Given Documented by: Insulin Glargine (Lantus Solostar Pen) 5 units SC BID [facility] Stop: 12/20/19 21:44 Last Admin: 11/30/19 08:12 Dose: 5 units Documented by: Levetiracetam (Keppra) 750 mg PO BID@0900,1800 [facility] Stop: 12/21/19 08:59 Last Admin: 11/30/19 08:11 Dose: 750 mg Documented by: Metoprolol Tartrate (Lopressor) 100 mg PO QAM [facility] Stop: 12/21/19 08:59 Last Admin: 11/30/19 08:12 Dose: 100 mg Documented by: Miscellaneous (Carbohydrates For Hypoglycemia) 15 - 30 gm PO UD PRN PRN Reason: Hypoglycemia Protocol Stop: 12/20/19 17:33 Morphine Sulfate (Morphine Sulfate) 2 mg IV Q4H PRN PRN Reason: Pain Stop: 12/06/19 18:25 Last Admin: 11/27/19 15:16 Dose: 2 mg Documented by: Ondansetron HCl (Zofran) 4 mg IV Q6H PRN PRN Reason: Nausea Stop: 12/20/19 17:33 Last Admin: 11/27/19 15:17 Dose: 4 mg Documented by: Pantoprazole Sodium (Protonix) [address] [facility] Stop: 12/21/19 08:59 Last Admin: 11/30/19 08:12 Dose: 40 mg Documented by:
[2019-12-01] MEDS: HEPARIN SOD 5,000 UNIT/0.5 ML VIAL SQ SCH ×3 (05:19→21:21)
[2019-12-01] MEDS: PANTOprazole 40 MG TAB PO SCH (08:29)
[2019-12-01] MEDS: levETIRAcetam 250 MG TAB PO SCH ×2 (08:29→17:16)
[2019-12-01] MEDS: CEFDINIR 300 MG CAP PO SCH ×2 (08:29→21:21)
[2019-12-01] MEDS: FERROUS SULFATE 325 MG TAB PO SCH (08:29)
[2019-12-01] MEDS: METOPROLOL TARTRATE 100 MG TAB PO SCH (08:29)
[2019-12-01] MEDS: ASPIRIN 81 MG ECTAB PO SCH (08:29)
[2019-12-01] MEDS: INSULIN GLARGINE SOLOSTAR 100 UNITS/ML 3 ML PEN SC SCH ×2 (08:31→21:21)
[2019-12-01] MEDS: INSULIN ASPART 100 UNITS/ML 3 ML PEN SC SCH ×4 (08:31→21:20)
[2019-12-01] MEDS: CLOPIDOGREL BISULFATE 75 MG TAB PO SCH (08:44)
--- NOTE | 2019-12-01 11:11 | Hospitalist Progress Note ---
Date of Service December 01, 2019 Assessment & Plan (1) Sepsis: Pt is 59 y/o F with PMH HTN, DM II, CAD, seizure disorder, h/o brain tumor s/p surgery, Charcot joint, ambulatory dysfunction, dementia, iron deficiency anemia, HLD presented to ER from [facility] with complaint of unresponsiveness. History obtained from ER staff and [facility] staff and report pt at baseline this morning and at noon checked and pt unresponsive with BSG 200, BP 103/80, 86% on room air, reported normal pulse, afebrile. Report when EMS arrived patient's SBP's were in the 60s. Staff denies any recent fevers, cough, SOB. Recently treated for LLE cellulitis with Keflex. Secondary to UTI and management as below (2) UTI (urinary tract infection): Present on admission with unresponsive with Leukocytosis, elevated lactic acid and hypotension CXR showed no focal opacity and no large effusion or pneumothorax Urine cx positive for gram negative bacilli (Klebsiella pneumonia) lactic acid normalized and WBC trending down Blood cx no growth Received IV Zosyn and Dapto now on intravenous Rocephin ID on board-appreciate input and recommendation Will transition to cefdinir on discharge to complete a total of 7 days course of abx Remains stable but generally weak and lethargic We will get PT and OT evaluation-she will not need any PT and OT evaluation Started on oral cefdinir and will be continued for a total of 7 days Medically stable to be discharged from the hospital Denies any symptoms whatsoever (3) Small bowel obstruction: repeat CT scan showing more of enteritis/diarrheal state with no transition zone + stool output abdomen soft, nondistended, tender LUQ/Left side today but no guarding or peritonitis no leukocytosis Appreciate surgery input and recommendation Continue with the conservative management Will advance diet to full liquid Has been tolerating regular diet without any signs and/or symptoms of obstruction No signs and/or symptoms of obstruction (4) Abdominal pain: Abdominal discomfort associated with nausea, vomiting KUB showed diffuse gaseous distention of small and large bowel could represent significant ileus. However, the stacked configuration of small bowel makes obstruction difficult to exclude. Stools negative for Cdiff, Salmonella, Shigella and Campylobacter CT abd/pelvi showed proximal small bowel is distended and fluid-filled. There are decompressed loops of distal small bowel in the right lower quadrant, and the appearance strongly suggests small bowel obstruction. Cholelithiasis within a distended gallbladder. Gallbladder u/s showed cholelithiasis within a distended gallbladder. There is no sonographic evidence of acute cholecystitis. Continue antiemetic and gentle hydration for now Repeat CT abd showed persistent multiple dilated loops of small bowel with air- fluid levels are noted in conjunction without a discrete transition point identified. Additionally, there is gaseous distention with circumferential wall thickening involving the sigmoid colon. No episode of vomiting since yesterday morning No indication for any surgical intervention as per surgery Denies any more abdominal pain (5) Altered mental state: Possible related to metabolic encephalopathy secondary to sepsis. CT head showed no acute changes No focal neuro deficit Clinically improves significantly resolved (6) Renal insufficiency: Acute Kidney Injury Possible related to dehydration due to sepsis BUN: 42, Cr: 1.9, GFR: 29 on admission, Unsure of pt's baseline renal functions Received IVF Creatinine normalizes Continue monitor renal functions Avoid nephrotoxic agents when possible Kidney function remains stable-we will check PRP in the morning (7) Hypokalemia: K 3.4 K replaced Monitor BMP (8) Sacral ulcer: Noted superficial sacral ulcer without surrounding erythema Wound care on board Continue daily wound care (9) Seizure disorder: History seizure disorder. Unsure when last seizure activity Continue Keppra IV for now since NPO Continue seizure protocol (10) CAD (coronary artery disease): aspirin, Plavix on hold for now due to NPO Will resume statin since will d/c Dapto in am Denies any chest pain (11) Diabetes mellitus, type II: Metformin on hold Hba1c 7.1 Continue NovoLog sliding scale per protocol Continue monitor BS (12) HTN (hypertension): Hypotensive on admission Continue to hold lisinopril, HCTZ Continue metoprolol with holding parameters Continue monitor BP denny (13) Iron deficiency anemia: Hgb dropped to 8.8 today Continue iron supplement Will monitor Hgb, transfuse if continue to drop DVT Prophylaxis Heparin on hold (may anticipate any surgical procedure) On SCDs CODE status Full Code Disposition Will be discharged to SNF when accepted Admission and Anticipated Discharge Date Admission Date: November 20, 2019 Subjective 11/27/2019 The patient was seen and examined in medical unit She complains to have abdominal discomfort and generalized weakness Denies any fever and/or chills 11/28/2019 The patient was seen and examined in the medical floor She has been feeling a lot better today Except mild nausea she does not have any other significant symptoms 11/29/2019 Patient was seen and examined in medical floor She remains stable and denies any symptoms as of today She has been tolerating regular diet Denies any significant symptoms 11/30/2019 The patient was seen and examined in medical floor She remains stable without any significant symptoms Denies any fever, shortness of breath, abdominal pain, distention, nausea or vomiting 12/01/2019 The patient was seen and examined in medical floor She remains stable without any symptoms She has been waiting to go to [facility] Review of Systems Review of Systems: All systems reviewed and are unremarkable except as noted below Neurologic: + generalized weakness Physical Exam Physical Exam: Lying in the bed without any acute distress Constitutional: well developed; no acute distress and not ill appearing Eyes: PERRL, conjunctivae normal, anicteric sclerae ENMT: external ear and nose normal, oropharynx normal Neck: trachea midline, no thyromegaly Respiratory: normal respiratory effort; no respiratory distress Auscultation: lungs clear to auscultation bilaterally Cardiovascular: Rate/Rhythm: regular rate and regular rhythm Heart Sounds: no murmur Gastrointestinal (Abdomen): Inspection/Auscultation: abdomen normal to inspection and normal bowel sounds Percussion/Palpation: + abdomen tender (Minimally tender lower abdomen) and abdomen soft Neurologic: moves all extremities Lymphatic: no cervical or axillary lymphadenopathy Results & Data Results & Data ([facility]) Vital Signs (Past 12 Hours) Vital Signs Temp Pulse Resp BP BP Pulse Ox 12/01/19 07:32 36.8 C 75 16 146/79 H 100 11/30/19 23:35 37.3 C 73 18 142/76 H 99 Medications Administered Current Inpatient Medications Acetaminophen (Tylenol) 650 mg PO Q4H PRN PRN Reason: Pain or Fever Stop: 12/20/19 17:33 Last Admin: 11/28/19 15:47 Dose: 650 mg Documented by: Aspirin (Ecotrin Ectab) 81 mg PO QAM [facility] Stop: 12/21/19 08:59 Last Admin: 12/01/19 08:29 Dose: 81 mg Documented by: Cefdinir (Omnicef Cap) 300 mg PO BID [facility]; Protocol Stop: 12/05/19 16:59 Last Admin: 12/01/19 08:29 Dose: 300 mg Documented by: Clopidogrel Bisulfate (Plavix) 75 mg PO QAM [facility] Stop: 12/21/19 08:59 Last Admin: 12/01/19 08:44 Dose: 75 mg Documented by: Dextrose (Dextrose 50%) 25 - 50 ml IV UD PRN; Protocol PRN Reason: Hypoglycemia Protocol Stop: 12/20/19 17:33 Ferrous [facility] ([facility]) [facility] Stop: 12/21/19 08:59 Last Admin: 12/01/19 08:29 Dose: 325 mg Documented by: Glucagon (Glucagen) 1 mg SQ UD PRN; Protocol PRN Reason: Hypoglycemia Protocol Stop: 12/20/19 17:33 Glucose (Glucose 40%) 15 - 30 gm PO UD PRN; Protocol PRN Reason: Hypoglycemia Protocol Stop: 12/20/19 17:33 Glucose (Dex4 Glucose) 4 - 8 tabs PO UD PRN; Protocol PRN Reason: Hypoglycemia Protocol Stop: 12/20/19 17:33 Heparin Sodium (Porcine) (Heparin Sodium (Porcine)) 5,000 units SQ Q8 [facility] Stop: 12/20/19 21:59 Last Admin: 12/01/19 05:19 Dose: 5,000 units Documented by: Hydralazine HCl (Hydralazine Hcl) 10 mg IV Q6H PRN PRN Reason: SBP above 170 Stop: 12/25/19 08:35 Last Admin: 11/27/19 19:55 Dose: 10 mg Documented by: Insulin Aspart (Novolog Flexpen) 0 units SC ACHS [facility] Stop: 12/24/19 16:29 Last Admin: 12/01/19 08:31 Dose: Not Given Documented by: Insulin Glargine (Lantus Solostar Pen) 5 units SC BID [facility] Stop: 12/20/19 21:44 Last Admin: 12/01/19 08:31 Dose: 5 units Documented by: Levetiracetam (Keppra) 750 mg PO BID@0900,1800 [facility] Stop: 12/21/19 08:59 Last Admin: 12/01/19 08:29 Dose: 750 mg Documented by: Metoprolol Tartrate (Lopressor) 100 mg PO QAM [facility] Stop: 12/21/19 08:59 Last Admin: 12/01/19 08:29 Dose: 100 mg Documented by: Miscellaneous (Carbohydrates For Hypoglycemia) 15 - 30 gm PO UD PRN PRN Reason: Hypoglycemia Protocol Stop: 12/20/19 17:33 Morphine Sulfate (Morphine Sulfate) 2 mg IV Q4H PRN PRN Reason: Pain Stop: 12/06/19 18:25 Last Admin: 11/27/19 15:16 Dose: 2 mg Documented by: Ondansetron HCl (Zofran) 4 mg IV Q6H PRN PRN Reason: Nausea Stop: 12/20/19 17:33 Last Admin: 11/27/19 15:17 Dose: 4 mg Documented by: Pantoprazole Sodium (Protonix) 40 mg PO QAM [facility] Stop: 12/21/19 08:59 Last Admin: 12/01/19 08:29 Dose: 40 mg Documented by:
[2019-12-01] MEDS: ACETAMINOPHEN 325 MG TAB PO PRN (15:44)
[2019-12-02] MEDS: HEPARIN SOD 5,000 UNIT/0.5 ML VIAL SQ SCH ×3 (05:42→21:22)
[2019-12-02 07:18] LABS: Basophils # (auto) 0.02 K/uL (0-0.2); Basophils % (auto) 0.3 %; Eosinophils # (auto) 0.21 K/uL (0-0.5); Eosinophils % (auto) 3.6 %; Hematocrit (blood only) 25.4 % (37-47); Hemoglobin 8.3 g/dL (12.0-16.0); Immature Granulocytes # (auto) 0.02 K/uL (0.00-0.02); Immature Granulocytes % (auto) 0.3 %; Lymphocytes # (auto) 1.81 K/uL (1.2-3.4); Lymphocytes % (auto) 30.9 %; Mean Corpuscular Hemoglobin 27.1 pg (25-34); Mean Corpuscular Hgb Conc 32.7 g/dL (32-36); Mean Platelet Volume 8.7 fL (7.4-10.4); Monocytes # (auto) 0.82 K/uL (0.11-0.59); Neutrophils # (auto) 2.97 K/uL (1.4-6.5); Neutrophils % (auto) 50.9 %; Platelet Count 559 K/uL (130-400); RDW Standard Deviation 45.3 fL (36.4-46.3); Red Blood Count 3.06 M/uL (4.2-5.4); White Blood Count 5.85 K/uL (4.8-10.8)
[2019-12-02 07:45] LABS: BUN Creatinine Ratio 10.5 (10-20); Calcium 8.3 mg/dl (8.5-10.1); Creatinine Clr Calc Pharmacy 194.4 ml/min; Est GFR (African American) 136.1; Est GFR (Non-African American) 117.5; Magnesium 1.6 mg/dl (1.8-2.4); Phosphorus 2.8 mg/dl (2.5-4.9); Potassium 2.9 mmol/L (3.5-5.1)
[2019-12-02] MEDS: ASPIRIN 81 MG ECTAB PO SCH (08:23)
[2019-12-02] MEDS: levETIRAcetam 250 MG TAB PO SCH ×2 (08:23→17:36)
[2019-12-02] MEDS: FERROUS SULFATE 325 MG TAB PO SCH (08:23)
[2019-12-02] MEDS: CLOPIDOGREL BISULFATE 75 MG TAB PO SCH (08:24)
[2019-12-02] MEDS: INSULIN GLARGINE SOLOSTAR 100 UNITS/ML 3 ML PEN SC SCH ×2 (08:24→21:22)
[2019-12-02] MEDS: METOPROLOL TARTRATE 100 MG TAB PO SCH (08:24)
[2019-12-02] MEDS: PANTOprazole 40 MG TAB PO SCH (08:25)
[2019-12-02] MEDS: CEFDINIR 300 MG CAP PO SCH ×2 (08:25→21:22)
[2019-12-02] MEDS: INSULIN ASPART 100 UNITS/ML 3 ML PEN SC SCH ×4 (08:26→21:22)
[2019-12-02] MEDS ORDERED: POTASSIUM CHLORIDE 20 MEQ TABCR PO STA (11:27)
[2019-12-02] MEDS: MAGNESIUM SULFATE / D5W 1 GM/100 ML BAG IV SCH ×2 (11:56→13:01)
[2019-12-02] MEDS: POTASSIUM CHLORIDE / WTR 10 MEQ/100 ML PLCT IV SCH ×2 (11:56→13:36)
--- NOTE | 2019-12-02 11:56 | Hospitalist Progress Note ---
Date of Service December 02, 2019 Assessment & Plan (1) Sepsis: Pt is 59 y/o F with PMH HTN, DM II, CAD, seizure disorder, h/o brain tumor s/p surgery, Charcot joint, ambulatory dysfunction, dementia, iron deficiency anemia, HLD presented to ER from [facility] with complaint of unresponsiveness. History obtained from ER staff and [facility] staff and report pt at baseline this morning and at noon checked and pt unresponsive with BSG 200, BP 103/80, 86% on room air, reported normal pulse, afebrile. Report when EMS arrived patient's SBP's were in the 60s. Staff denies any recent fevers, cough, SOB. Recently treated for LLE cellulitis with Keflex. Secondary to UTI and management as below (2) UTI (urinary tract infection): Present on admission with unresponsive with Leukocytosis, elevated lactic acid and hypotension CXR showed no focal opacity and no large effusion or pneumothorax Urine cx positive for gram negative bacilli (Klebsiella pneumonia) lactic acid normalized and WBC trending down Blood cx no growth Received IV Zosyn and Dapto now on intravenous Rocephin ID on board-appreciate input and recommendation Will transition to cefdinir on discharge to complete a total of 7 days course of abx Remains stable but generally weak and lethargic Has been having diarrhea likely secondary to oral antibiotic and C. difficile has been negative Discontinue oral antibiotic today (3) Small bowel obstruction: repeat CT scan showing more of enteritis/diarrheal state with no transition zone + stool output abdomen soft, nondistended, tender LUQ/Left side today but no guarding or peritonitis no leukocytosis Appreciate surgery input and recommendation Continue with the conservative management Will advance diet to full liquid Has been tolerating regular diet without any signs and/or symptoms of obstruction No signs and/or symptoms of obstruction (4) Abdominal pain: Abdominal discomfort associated with nausea, vomiting KUB showed diffuse gaseous distention of small and large bowel could represent significant ileus. However, the stacked configuration of small bowel makes obstruction difficult to exclude. Stools negative for Cdiff, Salmonella, Shigella and Campylobacter CT abd/pelvi showed proximal small bowel is distended and fluid-filled. There are decompressed loops of distal small bowel in the right lower quadrant, and the appearance strongly suggests small bowel obstruction. Cholelithiasis within a distended gallbladder. Gallbladder u/s showed cholelithiasis within a distended gallbladder. There is no sonographic evidence of acute cholecystitis. Continue antiemetic and gentle hydration for now Repeat CT abd showed persistent multiple dilated loops of small bowel with air- fluid levels are noted in conjunction without a discrete transition point identified. Additionally, there is gaseous distention with circumferential wall thickening involving the sigmoid colon. No episode of vomiting since yesterday morning No indication for any surgical intervention as per surgery Denies any more abdominal pain, nausea and/or vomiting (5) Altered mental state: Possible related to metabolic encephalopathy secondary to sepsis. CT head showed no acute changes No focal neuro deficit Clinically improves significantly resolved (6) Renal insufficiency: Acute Kidney Injury Possible related to dehydration due to sepsis BUN: 42, Cr: 1.9, GFR: 29 on admission, Unsure of pt's baseline renal functions Received IVF Creatinine normalizes Continue monitor renal functions Avoid nephrotoxic agents when possible Kidney function remains stable-we will check PRP in the morning-creatinine normalized (7) Hypokalemia: K 3.4 K replaced Magnesium replaced as well We will monitor (8) Sacral ulcer: Noted superficial sacral ulcer without surrounding erythema Wound care on board Continue daily wound care (9) Seizure disorder: History seizure disorder. Unsure when last seizure activity Continue Keppra IV for now since NPO Continue seizure protocol (10) CAD (coronary artery disease): aspirin, Plavix on hold for now due to NPO Will resume statin since will d/c Dapto in am Denies any chest pain (11) Diabetes mellitus, type II: Metformin on hold Hba1c 7.1 Continue NovoLog sliding scale per protocol Continue monitor BS (12) HTN (hypertension): Hypotensive on admission Continue to hold lisinopril, HCTZ Continue metoprolol with holding parameters Continue monitor BP denny (13) Iron deficiency anemia: Hgb dropped to 8.8 today Continue iron supplement Will monitor Hgb, transfuse if continue to drop DVT Prophylaxis Heparin on hold (may anticipate any surgical procedure) On SCDs CODE status Full Code Disposition Will be discharged to SNF when accepted-will be discharged from the hospital on of this month Admission and Anticipated Discharge Date Admission Date: November 20, 2019 Subjective 11/27/2019 The patient was seen and examined in medical unit She complains to have abdominal discomfort and generalized weakness Denies any fever and/or chills 11/28/2019 The patient was seen and examined in the medical floor She has been feeling a lot better today Except mild nausea she does not have any other significant symptoms 11/29/2019 Patient was seen and examined in medical floor She remains stable and denies any symptoms as of today She has been tolerating regular diet Denies any significant symptoms 11/30/2019 The patient was seen and examined in medical floor She remains stable without any significant symptoms Denies any fever, shortness of breath, abdominal pain, distention, nausea or vomiting 12/01/2019 The patient was seen and examined in medical floor She remains stable without any symptoms She has been waiting to go to SNF 12/02/2019 The patient was seen and examined in medical floor She remains generally weak but denies any significant symptoms She has had repeated stool test that came out to be negative for any C. difficile Review of Systems Review of Systems: All systems reviewed and are unremarkable except as noted below Neurologic: + generalized weakness Physical Exam Physical Exam: Lying in the bed without any acute distress Constitutional: well developed; no acute distress and not ill appearing Eyes: PERRL, conjunctivae normal, anicteric sclerae ENMT: external ear and nose normal, oropharynx normal Neck: trachea midline, no thyromegaly Respiratory: normal respiratory effort; no respiratory distress Auscultation: lungs clear to auscultation bilaterally Cardiovascular: Rate/Rhythm: regular rate and regular rhythm Heart Sounds: no murmur Gastrointestinal (Abdomen): Inspection/Auscultation: abdomen normal to inspection and normal bowel sounds Percussion/Palpation: + abdomen tender (Minimally tender lower abdomen) and abdomen soft Neurologic: moves all extremities; no focal motor deficits Lymphatic: no cervical or axillary lymphadenopathy Results & Data Results & Data ([facility]) Vital Signs (Past 12 Hours) Vital Signs Temp Pulse Resp BP BP Pulse Ox 12/02/19 08:39 92 H 152/78 H 12/02/19 07:00 36.8 C 81 18 161/86 H 179/84 H 99 Laboratory Results Short CBC 12/02/19 Range/Units 06:35 WBC 5.85 (4.8-10.8) K/uL Hgb 8.3 L (12.0-16.0) g/dL Hct 25.4 L (37-47) % Plt Count 559 H (130-400) K/uL BMP 12/02/19 06:35 Sodium 138 Potassium 2.9 L Chloride 107 Carbon Dioxide 26 BUN 4 L Creatinine 0.35 L Glucose 104 H Calcium 8.3 L Medications Administered Current Inpatient Medications Acetaminophen (Tylenol) 650 mg PO Q4H PRN PRN Reason: Pain or Fever Stop: 12/20/19 17:33 Last Admin: 12/01/19 15:44 Dose: 650 mg Documented by: [facility]ir[facility] ([facility]ctab) [facility] Stop: 12/21/19 08:59 Last Admin: 12/02/19 08:23 Dose: 81 mg Documented by: Cefdinir (Omnicef Cap) 300 mg PO BID [facility]; Protocol Stop: 12/05/19 16:59 Last Admin: 12/02/19 08:25 Dose: 300 mg Documented by: Clopidogrel Bisulfate (Plavix) 75 mg PO [facility] Stop: 12/21/19 08:59 Last Admin: 12/02/19 08:24 Dose: 75 mg Documented by: Dextrose (Dextrose 50%) 25 - 50 ml IV UD PRN; Protocol PRN Reason: Hypoglycemia Protocol Stop: 12/20/19 17:33 Ferrous Sulfate (Feosol) 325 mg PO [facility] Stop: 12/21/19 08:59 Last Admin: 12/02/19 08:23 Dose: 325 mg Documented by: Glucagon (Glucagen) 1 mg SQ UD PRN; Protocol PRN Reason: Hypoglycemia Protocol Stop: 12/20/19 17:33 Glucose (Glucose 40%) 15 - 30 gm PO UD PRN; Protocol PRN Reason: Hypoglycemia Protocol Stop: 12/20/19 17:33 Glucose (Dex4 Glucose) 4 - 8 tabs PO UD PRN; Protocol PRN Reason: Hypoglycemia Protocol Stop: 12/20/19 17:33 Heparin Sodium (Porcine) (Heparin Sodium (Porcine)) 5,000 units SQ Q8 [facility] Stop: 12/20/19 21:59 Last Admin: 12/02/19 05:42 Dose: 5,000 units Documented by: Hydralazine HCl (Hydralazine Hcl) 10 mg IV Q6H PRN PRN Reason: SBP above 170 Stop: 12/25/19 08:35 Last Admin: 11/27/19 19:55 Dose: 10 mg Documented by: Potassium Chloride (K Marc / Wtr) 10 meq in 100 mls @ 100 mls/hr IV Q1H [facility] Stop: 12/02/19 13:44 Magnesium Sulfate/Dextrose (Magnesium Sulfate / D5w) 1 gm in 100 mls @ 100 mls/hr IV Q1H [facility] Stop: 12/02/19 13:44 Insulin Aspart (Novolog Flexpen) 0 units SC ACHS [facility] Stop: 12/24/19 16:29 Last Admin: 12/02/19 08:26 Dose: 2 units Documented by: Insulin Glargine (Lantus Solostar Pen) 5 units SC BID [facility] Stop: 12/20/19 21:44 Last Admin: 12/02/19 08:24 Dose: 5 units Documented by: Levetiracetam (Keppra) 750 mg PO BID@0900,1800 [facility] Stop: 12/21/19 08:59 Last Admin: 12/02/19 08:23 Dose: 750 mg Documented by: Metoprolol Tartrate (Lopressor) [facility] Stop: 12/21/19 08:59 Last Admin: 12/02/19 08:24 Dose: 100 mg Documented by: Miscellaneous (Carbohydrates For Hypoglycemia) 15 - 30 gm PO UD PRN PRN Reason: Hypoglycemia Protocol Stop: 12/20/19 17:33 Morphine Sulfate (Morphine Sulfate) 2 mg IV Q4H PRN PRN Reason: Pain Stop: 12/06/19 18:25 Last Admin: 11/27/19 15:16 Dose: 2 mg Documented by: Ondansetron HCl (Zofran) 4 mg IV Q6H PRN PRN Reason: Nausea Stop: 12/20/19 17:33 Last Admin: 11/27/19 15:17 Dose: 4 mg Documented by: Pantoprazole Sodium (Protonix) [facility] Stop: 12/21/19 08:59 Last Admin: 12/02/19 08:25 Dose: 40 mg Documented by:
[2019-12-02] MEDS: ONDANSETRON INJ 2 MG/ML 2 ML VIAL IV PRN (13:01)
[2019-12-03] MEDS: HEPARIN SOD 5,000 UNIT/0.5 ML VIAL SQ SCH ×3 (05:46→20:37)
[2019-12-03 07:28] LABS: BUN Creatinine Ratio 6.3 (10-20); Calcium 8.6 mg/dl (8.5-10.1); Creatinine Clr Calc Pharmacy 158.2 ml/min; Est GFR (African American) 127.2; Est GFR (Non-African American) 109.8; Potassium 3.2 mmol/L (3.5-5.1)
[2019-12-03] MEDS: CLOPIDOGREL BISULFATE 75 MG TAB PO SCH (08:23)
[2019-12-03] MEDS: INSULIN GLARGINE SOLOSTAR 100 UNITS/ML 3 ML PEN SC SCH (08:24)
[2019-12-03] MEDS: METOPROLOL TARTRATE 100 MG TAB PO SCH (08:24)
[2019-12-03] MEDS: ASPIRIN 81 MG ECTAB PO SCH (08:24)
[2019-12-03] MEDS: PANTOprazole 40 MG TAB PO SCH (08:24)
[2019-12-03] MEDS: FERROUS SULFATE 325 MG TAB PO SCH (08:24)
[2019-12-03] MEDS: levETIRAcetam 250 MG TAB PO SCH ×2 (08:27→17:47)
[2019-12-03] MEDS: CEFDINIR 300 MG CAP PO SCH (08:28)
[2019-12-03] MEDS: INSULIN ASPART 100 UNITS/ML 3 ML PEN SC SCH ×4 (08:29→20:37)
--- NOTE | 2019-12-03 12:21 | Hospitalist Progress Note ---
Date of Service December 03, 2019 Assessment & Plan (1) Sepsis: Pt is 59 y/o F with PMH HTN, DM II, CAD, seizure disorder, h/o brain tumor s/p surgery, Charcot joint, ambulatory dysfunction, dementia, iron deficiency anemia, HLD presented to ER from [facility] with complaint of unresponsiveness. History obtained from ER staff and [facility] staff and report pt at baseline this morning and at noon checked and pt unresponsive with BSG 200, BP 103/80, 86% on room air, reported normal pulse, afebrile. Report when EMS arrived patient's SBP's were in the 60s. Staff denies any recent fevers, cough, SOB. Recently treated for LLE cellulitis with Keflex. Secondary to UTI and management as below (2) UTI (urinary tract infection): Present on admission with unresponsive with Leukocytosis, elevated lactic acid and hypotension CXR showed no focal opacity and no large effusion or pneumothorax Urine cx positive for gram negative bacilli (Klebsiella pneumonia) lactic acid normalized and WBC trending down Blood cx no growth Received IV Zosyn and Dapto now on intravenous Rocephin ID on board-appreciate input and recommendation Will transition to cefdinir on discharge to complete a total of 7 days course of abx Remains stable but generally weak and lethargic Has been having diarrhea likely secondary to oral antibiotic and C. difficile has been negative Will take out Luarent catheter today Antibiotics discontinued (3) Small bowel obstruction: repeat CT scan showing more of enteritis/diarrheal state with no transition zone + stool output abdomen soft, nondistended, tender LUQ/Left side today but no guarding or peritonitis no leukocytosis Appreciate surgery input and recommendation Continue with the conservative management Will advance diet to full liquid Has been tolerating regular diet without any signs and/or symptoms of obstruction No signs and/or symptoms of obstruction (4) Abdominal pain: Abdominal discomfort associated with nausea, vomiting KUB showed diffuse gaseous distention of small and large bowel could represent significant ileus. However, the stacked configuration of small bowel makes obstruction difficult to exclude. Stools negative for Cdiff, Salmonella, Shigella and Campylobacter CT abd/pelvi showed proximal small bowel is distended and fluid-filled. There are decompressed loops of distal small bowel in the right lower quadrant, and the appearance strongly suggests small bowel obstruction. Cholelithiasis within a distended gallbladder. Gallbladder u/s showed cholelithiasis within a distended gallbladder. There is no sonographic evidence of acute cholecystitis. Continue antiemetic and gentle hydration for now Repeat CT abd showed persistent multiple dilated loops of small bowel with air- fluid levels are noted in conjunction without a discrete transition point identified. Additionally, there is gaseous distention with circumferential wall thickening involving the sigmoid colon. No episode of vomiting since yesterday morning No indication for any surgical intervention as per surgery Denies any more abdominal pain, nausea and/or vomiting (5) Altered mental state: Possible related to metabolic encephalopathy secondary to sepsis. CT head showed no acute changes No focal neuro deficit Clinically improves significantly resolved (6) Renal insufficiency: Acute Kidney Injury Possible related to dehydration due to sepsis BUN: 42, Cr: 1.9, GFR: 29 on admission, Unsure of pt's baseline renal functions Received IVF Creatinine normalizes Continue monitor renal functions Avoid nephrotoxic agents when possible Kidney function remains stable-we will check PRP in the morning-creatinine normalized (7) Hypokalemia: K 3.4 K replaced Magnesium replaced as well We will monitor-recheck TR PA tomorrow (8) Sacral ulcer: Noted superficial sacral ulcer without surrounding erythema Wound care on board Continue daily wound care (9) Seizure disorder: History seizure disorder. Unsure when last seizure activity Continue Keppra IV for now since NPO Continue seizure protocol (10) CAD (coronary artery disease): aspirin, Plavix on hold for now due to NPO Will resume statin since will d/c Dapto in am Denies any chest pain (11) Diabetes mellitus, type II: Metformin on hold Hba1c 7.1 Continue NovoLog sliding scale per protocol Continue monitor BS (12) HTN (hypertension): Hypotensive on admission Continue to hold lisinopril, HCTZ Continue metoprolol with holding parameters Continue monitor BP denny (13) Iron deficiency anemia: Hgb dropped to 8.8 today Continue iron supplement Will monitor Hgb, transfuse if continue to drop DVT Prophylaxis Heparin on hold (may anticipate any surgical procedure) On SCDs CODE status Full Code Disposition Will be discharged to SNF when accepted-will be discharged from the hospital on of this month Admission and Anticipated Discharge Date Admission Date: November 20, 2019 Subjective 11/27/2019 The patient was seen and examined in medical unit She complains to have abdominal discomfort and generalized weakness Denies any fever and/or chills 11/28/2019 The patient was seen and examined in the medical floor She has been feeling a lot better today Except mild nausea she does not have any other significant symptoms 11/29/2019 Patient was seen and examined in medical floor She remains stable and denies any symptoms as of today She has been tolerating regular diet Denies any significant symptoms 11/30/2019 The patient was seen and examined in medical floor She remains stable without any significant symptoms Denies any fever, shortness of breath, abdominal pain, distention, nausea or vomiting 12/01/2019 The patient was seen and examined in medical floor She remains stable without any symptoms She has been waiting to go to SNF 12/02/2019 The patient was seen and examined in medical floor She remains generally weak but denies any significant symptoms She has had repeated stool test that came out to be negative for any C. difficile 12/03/2019 Patient was seen and examined in medical floor She remains stable without any complaints except generalized weakness But diarrhea is controlled Review of Systems Review of Systems: All systems reviewed and are unremarkable except as noted below Neurologic: + generalized weakness Physical Exam Physical Exam: Lying in the bed without any acute distress Constitutional: well developed; no acute distress and not ill appearing Eyes: PERRL, conjunctivae normal, anicteric sclerae ENMT: external ear and nose normal, oropharynx normal Neck: trachea midline, no thyromegaly Respiratory: normal respiratory effort; no respiratory distress Auscultation: lungs clear to auscultation bilaterally and + crackles (Minimal crackles at the bases) Cardiovascular: Rate/Rhythm: regular rate and regular rhythm Heart Sounds: no murmur Gastrointestinal (Abdomen): Inspection/Auscultation: abdomen normal to inspection and normal bowel sounds Percussion/Palpation: + abdomen tender (Minimally tender lower abdomen) and abdomen soft Musculoskeletal: No acute arthritis in any joints Neurologic: moves all extremities; no focal motor deficits Lymphatic: no cervical or axillary lymphadenopathy Results & Data Results & Data ([facility]) Vital Signs (Past 12 Hours) Vital Signs Temp Pulse Resp BP Pulse Ox 12/03/19 07:24 36.7 C 76 16 160/77 H 98 Laboratory Results [facility] 12/03/19 06:26 Sodium 136 Potassium 3.2 L Chloride 108 H Carbon Dioxide 25 BUN 3 L Creatinine 0.43 L Glucose 69 L Calcium 8.6 Medications Administered Current Inpatient Medications Acetaminophen (Tylenol) 650 mg PO Q4H PRN PRN Reason: Pain or Fever Stop: 12/20/19 17:33 Last Admin: 12/01/19 15:44 Dose: 650 mg Documented by: Aspirin (Ecotrin Ectab) 81 mg PO [facility] Stop: 12/21/19 08:59 Last Admin: 12/03/19 08:24 Dose: 81 mg Documented by: Clopidogrel Bisulfate (Plavix) 75 mg PO [facility] Stop: 12/21/19 08:59 Last Admin: 12/03/19 08:23 Dose: 75 mg Documented by: Dextrose (Dextrose 50%) 25 - 50 ml IV UD PRN; Protocol PRN Reason: Hypoglycemia Protocol Stop: 12/20/19 17:33 Ferrous Sulfate (Feosol) 325 mg PO [facility] Stop: 12/21/19 08:59 Last Admin: 12/03/19 08:24 Dose: 325 mg Documented by: Glucagon (Glucagen) 1 mg SQ UD PRN; Protocol PRN Reason: Hypoglycemia Protocol Stop: 12/20/19 17:33 Glucose (Glucose 40%) 15 - 30 gm PO UD PRN; Protocol PRN Reason: Hypoglycemia Protocol Stop: 12/20/19 17:33 Glucose (Dex4 Glucose) 4 - 8 tabs PO UD PRN; Protocol PRN Reason: Hypoglycemia Protocol Stop: 12/20/19 17:33 Heparin Sodium (Porcine) (Heparin Sodium (Porcine)) 5,000 units SQ Q8 [facility] Stop: 12/20/19 21:59 Last Admin: 12/03/19 05:46 Dose: 5,000 units Documented by: Hydralazine HCl (Hydralazine Hcl) 10 mg IV Q6H PRN PRN Reason: SBP above 170 Stop: 12/25/19 08:35 Last Admin: 11/27/19 19:55 Dose: 10 mg Documented by: Insulin Aspart (Novolog Flexpen) 0 units SC ACHS [facility] Stop: 12/24/19 16:29 Last Admin: 12/03/19 08:29 Dose: 5 units Documented by: Insulin Glargine (Lantus Solostar Pen) 5 units SC BID [facility] Stop: 12/20/19 21:44 Last Admin: 12/03/19 08:24 Dose: 5 units Documented by: Levetiracetam (Keppra) 750 mg PO BID@0900,1800 [facility] Stop: 12/21/19 08:59 Last Admin: 12/03/19 08:27 Dose: 750 mg Documented by: Metoprolol Tart[facility] ([facility]op[facility]) [facility] Stop: 12/21/19 08:59 Last Admin: 12/03/19 08:24 Dose: 100 mg Documented by: Miscellaneous (Carbohydrates For Hypoglycemia) 15 - 30 gm PO UD PRN PRN Reason: Hypoglycemia Protocol Stop: 12/20/19 17:33 Morphine Sulfate (Morphine Sulfate) 2 mg IV Q4H PRN PRN Reason: Pain Stop: 12/06/19 18:25 Last Admin: 11/27/19 15:16 Dose: 2 mg Documented by: Ondansetron HCl (Zofran) 4 mg IV Q6H PRN PRN Reason: Nausea Stop: 12/20/19 17:33 Last Admin: 12/02/19 13:01 Dose: 4 mg Documented by: Pantoprazole Sodium (Protonix) 40 mg PO [facility] Stop: 12/21/19 08:59 Last Admin: 12/03/19 08:24 Dose: 40 mg Documented by:
[2019-12-03] MEDS ORDERED: POTASSIUM CHLORIDE 20 MEQ TABCR PO STA (15:04)
[2019-12-04] MEDS: HEPARIN SOD 5,000 UNIT/0.5 ML VIAL SQ SCH ×3 (05:31→20:26)
[2019-12-04 07:42] LABS: BUN Creatinine Ratio 7.3 (10-20); Calcium 8.6 mg/dl (8.5-10.1); Creatinine Clr Calc Pharmacy 154.6 ml/min; Est GFR (African American) 126.3; Est GFR (Non-African American) 108.9; Magnesium 1.8 mg/dl (1.8-2.4)
[2019-12-04 08:00] LABS: Potassium 3.7 mmol/L (3.5-5.1)
[2019-12-04] MEDS: INSULIN ASPART 100 UNITS/ML 3 ML PEN SC SCH ×4 (08:04→20:24)
[2019-12-04] MEDS: levETIRAcetam 250 MG TAB PO SCH ×2 (08:05→17:15)
[2019-12-04] MEDS: PANTOprazole 40 MG TAB PO SCH (08:06)
[2019-12-04] MEDS: METOPROLOL TARTRATE 100 MG TAB PO SCH (08:06)
[2019-12-04] MEDS: CLOPIDOGREL BISULFATE 75 MG TAB PO SCH (08:06)
[2019-12-04] MEDS: FERROUS SULFATE 325 MG TAB PO SCH (08:06)
[2019-12-04] MEDS: ASPIRIN 81 MG ECTAB PO SCH (08:06)
[2019-12-04] MEDS: INSULIN GLARGINE SOLOSTAR 100 UNITS/ML 3 ML PEN SC SCH (08:07)
--- NOTE | 2019-12-04 11:16 | Hospitalist Progress Note ---
Date of Service December 04, 2019 Assessment & Plan (1) Sepsis: Pt is 59 y/o F with PMH HTN, DM II, CAD, seizure disorder, h/o brain tumor s/p surgery, Charcot joint, ambulatory dysfunction, dementia, iron deficiency anemia, HLD presented to ER from [facility] with complaint of unresponsiveness. History obtained from ER staff and [facility] staff and report pt at baseline this morning and at noon checked and pt unresponsive with BSG 200, BP 103/80, 86% on room air, reported normal pulse, afebrile. Report when EMS arrived patient's SBP's were in the 60s. Staff denies any recent fevers, cough, SOB. Recently treated for LLE cellulitis with Keflex. Secondary to UTI and management as below (2) UTI (urinary tract infection): Present on admission with unresponsive with Leukocytosis, elevated lactic acid and hypotension CXR showed no focal opacity and no large effusion or pneumothorax Urine cx positive for gram negative bacilli (Klebsiella pneumonia) lactic acid normalized and WBC trending down Blood cx no growth Received IV Zosyn and Dapto now on intravenous Rocephin ID on board-appreciate input and recommendation Will transition to cefdinir on discharge to complete a total of 7 days course of abx Remains stable but generally weak and lethargic Has been having diarrhea likely secondary to oral antibiotic and C. difficile has been negative Laurent catheter removed (12/02) Antibiotics discontinued (3) Small bowel obstruction: repeat CT scan showing more of enteritis/diarrheal state with no transition zone + stool output abdomen soft, nondistended, mildly tender LUQ/Left side but no guarding or peritonitis no leukocytosis Appreciate surgery input and recommendation Continue with the conservative management Has been tolerating regular diet without any signs and/or symptoms of o bstruction No signs and/or symptoms of obstruction (4) Abdominal pain: Abdominal discomfort associated with nausea, vomiting KUB showed diffuse gaseous distention of small and large bowel could represent significant ileus. However, the stacked configuration of small bowel makes obstruction difficult to exclude. Stools negative for Cdiff, Salmonella, Shigella and Campylobacter CT abd/pelvi showed proximal small bowel is distended and fluid-filled. There are decompressed loops of distal small bowel in the right lower quadrant, and the appearance strongly suggests small bowel obstruction. Cholelithiasis within a distended gallbladder. Gallbladder u/s showed cholelithiasis within a distended gallbladder. There is no sonographic evidence of acute cholecystitis. Continue antiemetic and gentle hydration for now Repeat CT abd showed persistent multiple dilated loops of small bowel with air- fluid levels are noted in conjunction without a discrete transition point identified. Additionally, there is gaseous distention with circumferential wall thickening involving the sigmoid colon. No episode of vomiting for several days No indication for any surgical intervention as per surgery Denies any sign. abdominal pain, no vomiting, occasional nausea (5) Altered mental state: Possible related to metabolic encephalopathy secondary to sepsis. CT head showed no acute changes No focal neuro deficit Clinically improved significantly resolved (6) Renal insufficiency: Acute Kidney Injury Possible related to dehydration due to sepsis BUN: 42, Cr: 1.9, GFR: 29 on admission, Unsure of pt's baseline renal functions Received IVF Creatinine normalized , current Cr 0.44 Continue monitor renal functions Avoid nephrotoxic agents when possible (7) Hypokalemia: likely d/t hx of diarrhea and poor oral intake K 3.4 K replaced Magnesium replaced as well Cont. to monitor (8) Sacral ulcer: Noted superficial sacral ulcer without surrounding erythema Wound care following Continue daily wound care (9) Seizure disorder: History seizure disorder. Unsure when last seizure activity Continue Keppra Continue seizure protocol (10) CAD (coronary artery disease): aspirin, Plavix on hold for now due to NPO Will resume statin since d/c Dapto Denies any chest pain (11) Diabetes mellitus, type II: Metformin on hold Hba1c 7.1 Continue NovoLog sliding scale per protocol Continue monitor BS (12) HTN (hypertension): Hypotensive on admission Continue to hold lisinopril, HCTZ Continue metoprolol with holding parameters Continue monitor BP denny (13) Iron deficiency anemia: Hgb stable above 8 Continue iron supplement Will monitor Hgb, transfuse if continue to drop DVT Prophylaxis Heparin on hold (may anticipate any surgical procedure) On SCDs CODE status Full Code Disposition Will be discharged to SNF when accepted-will be discharged from the hospital on of this month Admission and Anticipated Discharge Date Admission Date: November 20, 2019 Subjective Patient sitting up in bed, in no acute distress. Denies any fevers, chills, chest pain, shortness of breath. She feels weak, and is aware about waiting for SNF. Says that she does not have good appetite and occasionally she has nausea. Review of Systems Review of Systems: All systems reviewed & are unremarkable except as noted in HPI & below Constitutional: no fever and no chills Respiratory: no cough and no dyspnea Cardiovascular: no chest pain, no palpitations and no edema Gastrointestinal: + nausea; no vomiting Physical Exam Physical Exam: Physical Exam: Lying in the bed without any acute distress Constitutional: well developed; no acute distress and not ill appearing Eyes: PERRL, EOMI, conjunctivae normal, anicteric sclerae ENMT: external ear and nose normal, oropharynx normal Neck: trachea midline, no thyromegaly Respiratory: normal respiratory effort; no respiratory distress Auscultation: lungs clear to auscultation bilaterally and + crackles (Minimal crackles at the bases) Cardiovascular: Rate/Rhythm: regular rate and regular rhythm Heart Sounds: no murmur Gastrointestinal (Abdomen): Inspection/Auscultation: abdomen normal to inspection and normal bowel sounds Percussion/Palpation: + abdomen tender (Minimally tender lower abdomen) and abdomen soft Musculoskeletal: No acute arthritis in any joints Neurologic: moves all extremities; no focal motor deficits Results & Data Results & Data ([facility]) Vital Signs (Past 12 Hours) Vital Signs Temp Pulse Resp BP Pulse Ox 12/04/19 07:42 36.8 C 71 16 172/97 H 100 Laboratory Results 12/04/19 12/04/19 12/03/19 Range/Units 07:45 06:30 20:05 Sodium 137 (136-145) mmol/L Potassium 3.7 D (3.5-5.1) mmol/L Chloride 109 H (98-107) mmol/L Carbon Dioxide 25 (21-32) mmol/L Anion Gap 3.0 (3-11) BUN 3 L (7-18) mg/dl Creatinine 0.44 L (0.6-1.2) mg/dl Est Cr Clr Drug Dosing 154.6 ml/min Est GFR ( Amer) 126.3 Est GFR (Non-Af Amer) 108.9 BUN/Creatinine Ratio 7.3 L (10-20) Glucose 86 (70-99) mg/dl POC Glucose 93 102 H (70-99) mg/dl Calcium 8.6 (8.5-10.1) mg/dl Magnesium 1.8 (1.8-2.4) mg/dl 12/03/19 12/03/19 Range/Units 16:13 11:12 Sodium (136-145) mmol/L Potassium (3.5-5.1) mmol/L Chloride (98-107) mmol/L Carbon Dioxide (21-32) mmol/L Anion Gap (3-11) BUN (7-18) mg/dl Creatinine (0.6-1.2) mg/dl Est Cr Clr Drug Dosing ml/min Est GFR ( Amer) Est GFR (Non-Af Amer) BUN/Creatinine Ratio (10-20) Glucose (70-99) mg/dl POC Glucose 119 H 83 (70-99) mg/dl Calcium (8.5-10.1) mg/dl Magnesium (1.8-2.4) mg/dl Medications Administered Current Inpatient Medications Acetaminophen (Tylenol) 650 mg PO Q4H PRN PRN Reason: Pain or Fever Stop: 12/20/19 17:33 Last Admin: 12/01/19 15:44 Dose: 650 mg Documented by: Aspir[facility] ([facility]rin [facility]ab) [facility] Stop: 12/21/19 08:59 Last Admin: 12/04/19 08:06 Dose: 81 mg Documented by: Clopidogrel Bisulfate (Plavix) [facility] Stop: 12/21/19 08:59 Last Admin: 12/04/19 08:06 Dose: 75 mg Documented by: Dextrose (Dextrose 50%) 25 - 50 ml IV UD PRN; Protocol PRN Reason: Hypoglycemia Protocol Stop: 12/20/19 17:33 Ferrous Sulfate (Feosol) [facility] Stop: 12/21/19 08:59 Last Admin: 12/04/19 08:06 Dose: 325 mg Documented by: Glucagon (Glucagen) 1 mg SQ UD PRN; Protocol PRN Reason: Hypoglycemia Protocol Stop: 12/20/19 17:33 Glucose (Glucose 40%) 15 - 30 gm PO UD PRN; Protocol PRN Reason: Hypoglycemia Protocol Stop: 12/20/19 17:33 Glucose (Dex4 Glucose) 4 - 8 tabs PO UD PRN; Protocol PRN Reason: Hypoglycemia Protocol Stop: 12/20/19 17:33 Heparin Sodium (Porcine) (Heparin Sodium (Porcine)) 5,000 units SQ Q8 [facility] Stop: 12/20/19 21:59 Last Admin: 12/04/19 05:31 Dose: 5,000 units Documented by: Hydralazine HCl (Hydralazine Hcl) 10 mg IV Q6H PRN PRN Reason: SBP above 170 Stop: 12/25/19 08:35 Last Admin: 11/27/19 19:55 Dose: 10 mg Documented by: Insulin Aspart (Novolog Flexpen) 0 units SC ACHS [facility] Stop: 12/24/19 16:29 Last Admin: 12/04/19 08:04 Dose: 2 units Documented by: Insulin Glargine (Lantus Solostar Pen) 5 units SC DAILY [facility] Stop: 01/03/20 08:59 Last Admin: 12/04/19 08:07 Dose: 5 units Documented by: Levetiracetam (Keppra) 750 mg PO BID@0900,1800 [facility] Stop: 12/21/19 08:59 Last Admin: 12/04/19 08:05 Dose: 750 mg Documented by: Metoprolol Tartrate (Lopressor) 100 mg PO [facility] Stop: 12/21/19 08:59 Last Admin: 12/04/19 08:06 Dose: 100 mg Documented by: Miscellaneous (Carbohydrates For Hypoglycemia) 15 - 30 gm PO UD PRN PRN Reason: Hypoglycemia Protocol Stop: 12/20/19 17:33 Morphine Sulfate (Morphine Sulfate) 2 mg IV Q4H PRN PRN Reason: Pain Stop: 12/06/19 18:25 Last Admin: 11/27/19 15:16 Dose: 2 mg Documented by: Ondansetron HCl (Zofran) 4 mg IV Q6H PRN PRN Reason: Nausea Stop: 12/20/19 17:33 Last Admin: 12/02/19 13:01 Dose: 4 mg Documented by: Pantoprazole Sodium (Protonix) [facility] Stop: 12/21/19 08:59 Last Admin: 12/04/19 08:06 Dose: 40 mg Documented by:
[2019-12-04] MEDS: ACETAMINOPHEN 325 MG TAB PO PRN (16:16)
[2019-12-05] MEDS: HEPARIN SOD 5,000 UNIT/0.5 ML VIAL SQ SCH ×2 (05:43→12:16)
[2019-12-05 07:07] LABS: BUN Creatinine Ratio 11.6 (10-20); Calcium 8.6 mg/dl (8.5-10.1); Creatinine Clr Calc Pharmacy 133.4 ml/min; Est GFR (African American) 120.3; Est GFR (Non-African American) 103.8; Magnesium 1.7 mg/dl (1.8-2.4); Potassium 3.6 mmol/L (3.5-5.1)
--- NOTE | 2019-12-05 07:25 | Hospitalist Progress Note ---
Date of Service December 05, 2019 Assessment & Plan (1) Sepsis: Pt is 59 y/o F with PMH HTN, DM II, CAD, seizure disorder, h/o brain tumor s/p surgery, Charcot joint, ambulatory dysfunction, dementia, iron deficiency anemia, HLD presented to ER from [facility] with complaint of unresponsiveness. History obtained from ER staff and [facility] staff and report pt at baseline this morning and at noon checked and pt unresponsive with BSG 200, BP 103/80, 86% on room air, reported normal pulse, afebrile. Report when EMS arrived patient's SBP's were in the 60s. Staff denies any recent fevers, cough, SOB. Recently treated for LLE cellulitis with Keflex. Secondary to UTI and management as below (2) UTI (urinary tract infection): Present on admission with unresponsive with Leukocytosis, elevated lactic acid and hypotension CXR showed no focal opacity and no large effusion or pneumothorax Urine cx positive for gram negative bacilli (Klebsiella pneumonia) lactic acid normalized and WBC trending down Blood cx no growth Received IV Zosyn and Dapto then on intravenous Rocephin ID on board-appreciate input and recommendation Transitioned to cefdinir and completed a total of 7 days course of abx Remains stable but generally weak Has been having diarrhea likely secondary to oral antibiotic, C. difficile has been negative Laurent catheter removed (12/02) (3) Small bowel obstruction: repeat CT scan showing more of enteritis/diarrheal state with no transition zone + stool output abdomen soft, nondistended, mildly tender LUQ/Left side previously but no guarding or peritonitis no leukocytosis Surgery was consulted, no surgical intervention for enteritis Continue with the conservative management Has been tolerating regular diet without any signs and/or symptoms of obstruction (4) Abdominal pain: Abdominal discomfort associated with nausea, vomiting KUB showed diffuse gaseous distention of small and large bowel could represent significant ileus. However, the stacked configuration of small bowel makes obstruction difficult to exclude. Stools negative for Cdiff, Salmonella, Shigella and Campylobacter CT abd/pelvi showed proximal small bowel is distended and fluid-filled. There are decompressed loops of distal small bowel in the right lower quadrant, and the appearance strongly suggests small bowel obstruction. Cholelithiasis within a distended gallbladder. Gallbladder u/s showed cholelithiasis within a distended gallbladder. There is no sonographic evidence of acute cholecystitis. Continued antiemetic and gentle hydration Repeat CT abd showed persistent multiple dilated loops of small bowel with air- fluid levels are noted in conjunction without a discrete transition point identified. Additionally, there is gaseous distention with circumferential wall thickening involving the sigmoid colon. No episode of vomiting for several days No indication for any surgical intervention as per surgery Denies any abdominal pain, nausea or vomiting Tolerating diet (5) Altered mental state: Possible related to metabolic encephalopathy secondary to sepsis. CT head showed no acute changes No focal neuro deficit Clinically improved significantly resolved (6) Renal insufficiency: Acute Kidney Injury Possible related to dehydration due to sepsis BUN: 42, Cr: 1.9, GFR: 29 on admission, Unsure of pt's baseline renal functions Received IVF Creatinine normalized , current Cr 0.5 Continue monitor renal functions Avoid nephrotoxic agents when possible (7) Hypokalemia: likely d/t hx of diarrhea and poor oral intake K 3.4 K replaced, cont. to monitor Plan to d/c on K supplement, recommend to re-check BMP in 1 week Hypomagnesemia Magnesium replaced as well Goal Mag >2 Cont. to monitor Recommend to d/c on Mag supplement, recommend to check level in 1 week (8) Sacral ulcer: Noted superficial sacral ulcer without surrounding erythema Wound care following Continue daily wound care (9) Seizure disorder: History seizure disorder. Unsure when last seizure activity Continue Keppra Continue seizure protocol (10) CAD (coronary artery disease): Cont. aspirin, Plavix Resumed statin since d/c Dapto Denies any chest pain (11) Diabetes mellitus, type II: Metformin on hold Hba1c 7.1 Continue NovoLog sliding scale per protocol Continue monitor BS (12) HTN (hypertension): Hypotensive on admission Held lisinopril, HCTZ on admission Continue metoprolol with holding parameters Now BP more elevated, will restart small dose of lisinopril Continue monitor BP and titrate up her home medications as needed (13) Iron deficiency anemia: Hgb stable above 8 Continue iron supplement Monitor Hgb, transfuse if continue to drop DVT Prophylaxis: heparin subq, SCDs CODE status Full Code Disposition Will be discharged to SNF when accepted- plan to be discharged from the hospital today (on of this month) Admission and Anticipated Discharge Date Admission Date: November 20, 2019 Subjective No acute events overnight. Patient had good breakfast. Denies any abdominal pain, nausea or vomiting. Denies also any fevers or chills or chest pain or shortness of breath. Per nursing staff, patient was incontinent of urine. BP has been more elevated in past couple of days, lisinopril and HCTZ held on admission Will restart small dose lisinopril, cont. to monitor BP K replaced, Mag replaced Review of Systems Review of Systems: All systems reviewed & are unremarkable except as noted in HPI & below Constitutional: no fever and no chills Respiratory: no cough and no dyspnea Cardiovascular: no chest pain, no palpitations and no edema Gastrointestinal: no abdominal pain, no nausea and no vomiting Genitourinary: + urinary incontinence Physical Exam Physical Exam: Physical Exam: Lying in the bed without any acute distress Constitutional: well developed; no acute distress and not ill appearing Eyes: PERRL, EOMI, conjunctivae normal, anicteric sclerae ENMT: external ear and nose normal, oropharynx normal Neck: trachea midline, no thyromegaly Respiratory: normal respiratory effort; no respiratory distress Auscultation: lungs clear to auscultation bilaterally and + mild bibasilar crackles Cardiovascular: Rate/Rhythm: regular rate and regular rhythm Heart Sounds: no murmur Gastrointestinal (Abdomen): Inspection/Auscultation: abdomen normal to inspection and normal bowel sounds Percussion/Palpation: + abdomen soft, nontender to palpation Musculoskeletal: No acute arthritis in any joints, moves extremities spontaneously Neurologic: Speech fluent, answers questions appropriately, moves all extremities; no focal motor deficits Results & Data Results & Data ([facility]) Vital Signs (Past 12 Hours) Vital Signs Temp Pulse Resp BP Pulse Ox 12/04/19 23:31 37.0 C 77 20 151/80 H 100 Laboratory Results 12/05/19 12/04/19 12/04/19 Range/Units 06:00 20:04 16:32 Sodium 137 (136-145) mmol/L Potassium 3.6 (3.5-5.1) mmol/L Chloride 109 H (98-107) mmol/L Carbon Dioxide 24 (21-32) mmol/L Anion Gap 4.0 (3-11) BUN 6 L (7-18) mg/dl Creatinine 0.51 L (0.6-1.2) mg/dl Est Cr Clr Drug Dosing 133.4 ml/min Est GFR ( Amer) 120.3 Est GFR (Non-Af Amer) 103.8 BUN/Creatinine Ratio 11.6 (10-20) Glucose 121 H (70-99) mg/dl POC Glucose 155 H 134 H (70-99) mg/dl Calcium 8.6 (8.5-10.1) mg/dl Magnesium 1.7 L (1.8-2.4) mg/dl 12/04/19 12/04/19 12/04/19 Range/Units 11:41 07:45 06:30 Sodium 137 (136-145) mmol/L Potassium 3.7 D (3.5-5.1) mmol/L Chloride 109 H (98-107) mmol/L Carbon Dioxide 25 (21-32) mmol/L Anion Gap 3.0 (3-11) BUN 3 L (7-18) mg/dl Creatinine 0.44 L (0.6-1.2) mg/dl Est Cr Clr Drug Dosing 154.6 ml/min Est GFR ( Amer) 126.3 Est GFR (Non-Af Amer) 108.9 BUN/Creatinine Ratio 7.3 L (10-20) Glucose 86 (70-99) mg/dl POC Glucose 146 H 93 (70-99) mg/dl Calcium 8.6 (8.5-10.1) mg/dl Magnesium 1.8 (1.8-2.4) mg/dl Medications Administered Current Inpatient Medications Acetaminophen (Tylenol) 650 mg PO Q4H PRN PRN Reason: Pain or Fever Stop: 12/20/19 17:33 Last Admin: 12/04/19 16:16 Dose: 650 mg Documented by: Aspirin (Ecotrin Ectab) 81 mg PO [facility] Stop: 12/21/19 08:59 Last Admin: 12/05/19 07:49 Dose: 81 mg Documented by: Clopidogrel Bisulfate (Plavix) 75 mg PO [facility] Stop: 12/21/19 08:59 Last Admin: 12/05/19 07:49 Dose: 75 mg Documented by: Dextrose (Dextrose 50%) 25 - 50 ml IV UD PRN; Protocol PRN Reason: Hypoglycemia Protocol Stop: 12/20/19 17:33 Ferrous Sulfate (Feosol) 325 mg PO [facility] Stop: 12/21/19 08:59 Last Admin: 12/05/19 07:49 Dose: 325 mg Documented by: Glucagon (Glucagen) 1 mg SQ UD PRN; Protocol PRN Reason: Hypoglycemia Protocol Stop: 12/20/19 17:33 Glucose (Glucose 40%) 15 - 30 gm PO UD PRN; Protocol PRN Reason: Hypoglycemia Protocol Stop: 12/20/19 17:33 Glucose (Dex4 Glucose) 4 - 8 tabs PO UD PRN; Protocol PRN Reason: Hypoglycemia Protocol Stop: 12/20/19 17:33 Heparin Sodium (Porcine) (Heparin Sodium (Porcine)) 5,000 units SQ Q8 [facility] Stop: 12/20/19 21:59 Last Admin: 12/05/19 05:43 Dose: 5,000 units Documented by: Hydralazine HCl (Hydralazine Hcl) 10 mg IV Q6H PRN PRN Reason: SBP above 170 Stop: 12/25/19 08:35 Last Admin: 11/27/19 19:55 Dose: 10 mg Documented by: Insulin Aspart (Novolog Flexpen) 0 units SC ACHS [facility] Stop: 12/24/19 16:29 Last Admin: 12/05/19 07:57 Dose: 8 units Documented by: Insulin Glargine (Lantus Solostar Pen) 5 units SC DAILY [facility] Stop: 01/03/20 08:59 Last Admin: 12/05/19 07:51 Dose: 5 units Documented by: Levetiracetam (Keppra) 750 mg PO BID@0900,1800 [facility] Stop: 12/21/19 08:59 Last Admin: 12/05/19 07:49 Dose: 750 mg Documented by: Lisinopril (Zestril) 5 mg PO QAM [facility] Stop: 01/04/20 08:59 Last Admin: 12/05/19 07:49 Dose: 5 mg Documented by: Metoprolol Tartrate (Lopressor) 100 mg PO QAM [facility] Stop: 12/21/19 08:59 Last Admin: 12/05/19 07:49 Dose: 100 mg Documented by: Miscellaneous (Carbohydrates For Hypoglycemia) 15 - 30 gm PO UD PRN PRN Reason: Hypoglycemia Protocol Stop: 12/20/19 17:33 Morphine Sulfate (Morphine Sulfate) 2 mg IV Q4H PRN PRN Reason: Pain Stop: 12/06/19 18:25 Last Admin: 11/27/19 15:16 Dose: 2 mg Documented by: Ondansetron HCl (Zofran) 4 mg IV Q6H PRN PRN Reason: Nausea Stop: 12/20/19 17:33 Last Admin: 12/02/19 13:01 Dose: 4 mg Documented by: Pantoprazole Sodium (Protonix) 40 mg PO [facility] Stop: 12/21/19 08:59 Last Admin: 12/05/19 07:49 Dose: 40 mg Documented by:
[2019-12-05] MEDS ORDERED: POTASSIUM CHLORIDE 20 MEQ TABCR PO ONE (07:45)
[2019-12-05] MEDS ORDERED: MAGNESIUM SULFATE / D5W 1 GM/100 ML BAG IV ONE (07:45)
[2019-12-05] MEDS: CLOPIDOGREL BISULFATE 75 MG TAB PO SCH (07:49)
[2019-12-05] MEDS: METOPROLOL TARTRATE 100 MG TAB PO SCH (07:49)
[2019-12-05] MEDS: PANTOprazole 40 MG TAB PO SCH (07:49)
[2019-12-05] MEDS: levETIRAcetam 250 MG TAB PO SCH (07:49)
[2019-12-05] MEDS: FERROUS SULFATE 325 MG TAB PO SCH (07:49)
[2019-12-05] MEDS: ASPIRIN 81 MG ECTAB PO SCH (07:49)
[2019-12-05] MEDS: INSULIN GLARGINE SOLOSTAR 100 UNITS/ML 3 ML PEN SC SCH (07:51)
[2019-12-05] MEDS: INSULIN ASPART 100 UNITS/ML 3 ML PEN SC SCH ×2 (07:57→12:16)
[2019-12-05] MEDS ORDERED: lisinopriL 5 MG TAB PO SCH (09:00)
--- NOTE | 2019-12-05 13:36 | Discharge Summary ---
Date of Service December 05, 2019 Admission HPI Per Admitting Provider Pt is 59 y/o F with PMH HTN, DM II, CAD, seizure disorder, h/o brain tumor s/p surgery, Charcot joint, ambulatory dysfunction, dementia, iron deficiency anemia, HLD presented to ER from [facility] with complaint of unresponsiveness. History obtained from ER staff and [facility] staff. [facility] staff reports patient was at her baseline mental status this morning and had her morning medicines. Reports went to check on patient at noon today and found patient was unresponsive reports vitals at that time BP 103/80, 86% on room air, reported normal pulse, afebrile. Report when EMS arrived patient's SBP's were in the 60s. Staff report patient has been afebrile and without any cough or noted shortness of breath. Staff report patient new to their facility since 10/2019 as patient's sister could no longer care for her. Reports patient has been treated for left lower extremity cellulitis since 10/2019 with Keflex with improvement. Reports chronic wounds to her feet. half-way staff deny any other noted re cent vomiting, diarrhea or rashes. Pt with ambulatory dysfunction secondary to Charcot joint. Unable to obtain pt's FH. Outpatient [facility] chart report no history of tobacco use, ETOH use or drug use. Upon ER arrival patient starting to be more responsive. Patient afebrile, PA: 80, RR: 19, BP 86/55, 98% on room air. Admission Exam Per Admitting Provider General: lethargic, no acute distress, overweight Head: normocephalic, atraumatic Eyes: PERRL, EOM's intact, conjunctiva non-injected, anicteric ENT: normal inspection external ears, nose, mucous membranes dry Neck: supple, trachea midline Lungs: clear, no respiratory distress, no wheezing/rhonchi/rales CV: RRR, no murmur, no pretibial edema Abd: normal BS, soft, non-tender to palpation Ext: +skin discoloration consistent with venous stasis to bilateral lower legs without erythema or warmth, no calf tenderness Neuro: Pt lethargic, does awaken to voice and is alert to self only. Pt able to follow some simple commands of partially lifting bilateral arms and able to umbrella mender strength weak bilaterally Skin: warm, dry; bilateral feet with dry cracked skin and superficial ulcers without surrounding erythema, sacrum with superficial ulcer without surrounding erythema Principal Diagnosis Sepsis UTI BAHMAN Hypokalemia Hypomagnesemia Enteritis/concern for small bowel obstruction Discharge Exam Physical Exam: Lying in the bed without any acute distress Constitutional: well developed; no acute distress and not ill appearing Eyes: PERRL, EOMI, conjunctivae normal, anicteric sclerae ENMT: external ear and nose normal, oropharynx normal Neck: trachea midline, no thyromegaly Respiratory: normal respiratory effort; no respiratory distress Auscultation: lungs clear to auscultation bilaterally and + mild bibasilar crackles Cardiovascular: Rate/Rhythm: regular rate and regular rhythm Heart Sounds: no murmur Gastrointestinal (Abdomen): Inspection/Auscultation: abdomen normal to inspection and normal bowel sounds Percussion/Palpation: + abdomen soft, nontender to palpation Musculoskeletal: No acute arthritis in any joints, moves extremities spontaneously Neurologic: Speech slow but fluent, answers questions appropriately, moves all extremities; no focal motor deficits Discharge Data Allergies Allergy/AdvReac Type Severity Reaction Status Date / Time No Known Allergies Allergy Unverified 11/20/19 13:37 Consultations 11/20/19 14:36 ED Decision to Admit Stat 11/20/19 17:34 Consult Case Management - Discharge Planning Routine Consult Infectious Diseases Routine 11/22/19 18:24 Consult General Surgery Routine Ordered Studies 11/20/19 13:03 CT head/brain wo con Stat IMPRESSION: No acute intracranial findings 11/22/19 16:30 CT abd pelvis wo con Routine IMPRESSION: 1. Significantly suboptimal examination without oral and IV contrast. The examination is also degraded by streak and motion artifact. 2. The proximal small bowel is distended and fluid-filled. There are decompressed loops of distal small bowel in the right lower quadrant, and the appearance strongly suggests small bowel obstruction. A discrete transition point is not identified. Ileus is considered less likely due to the decompressed distal small bowel. 3. Liquid stool is noted in the colon. Correlate clinically for evidence of a nonspecific enterocolitis/diarrheal illness. 4. There is trace abdominopelvic ascites. No intraperitoneal free air is seen. 5. Trace pleural effusions. 6. A rectal foreign body or catheter is in place. Clinical correlation will be required. 7. Cholelithiasis within a distended gallbladder. Correlation with clinical findings and serum bilirubin levels will be required. If there is clinical concern for acute cholecystitis ultrasound should be considered. 8. Right-sided nephrolithiasis. 9. Fibroid uterus. 10. The bladder wall appears thickened. Correlation with urinalysis will be required. 11. There is body wall edema. 11/22/19 18:36 US gallbladder Routine IMPRESSION: 1. Cholelithiasis within a distended gallbladder. There is no sonographic evidence of acute cholecystitis. 2. Trace upper abdominal ascites. 11/23/19 11:45 CT abdomen w oral con only Urgent IMPRESSION: 1. Limited exam secondary to motion artifact and lack of IV contrast. 2. Persistent multiple dilated loops of small bowel with air-fluid levels are noted in conjunction without a discrete transition point identified. Additionally, there is gaseous distention with circumferential wall thickening involving the sigmoid colon. Findings are concerning for enteritis with diarrheal illness. A low-grade bowel obstruction is considered less likely however continued follow-up is recommended. 3. Cholelithiasis with distended gallbladder. 4. Volume overload manifested by trace pleural effusions with trace abdominal ascites and anasarca. 5. Right nephrolithiasis. 6. Cardiomegaly. Hospital Course (1) Sepsis: Pt is 59 y/o F with PMH HTN, DM II, CAD, seizure disorder, h/o brain tumor s/p surgery, Charcot joint, ambulatory dysfunction, dementia, iron deficiency anemia, HLD presented to ER from [facility] with complaint of unresponsiveness. History obtained from ER staff and [facility] staff and report pt at baseline this morning and at noon checked and pt unresponsive with BSG 200, BP 103/80, 86% on room air, reported normal pulse, afebrile. Report when EMS arrived patient's SBP's were in the 60s. Staff denies any recent fevers, cough, SOB. Recently treated for LLE cellulitis with Keflex. Secondary to UTI and management as below (2) UTI (urinary tract infection): Present on admission with unresponsive with Leukocytosis, elevated lactic acid and hypotension CXR showed no focal opacity and no large effusion or pneumothorax Urine cx positive for gram negative bacilli (Klebsiella pneumonia) lactic acid normalized and WBC trending down Blood cx no growth Received IV Zosyn and Dapto then on intravenous Rocephin ID on board-appreciate input and recommendation Transitioned to cefdinir and completed a total of 7 days course of abx Remains stable but generally weak Has been having diarrhea likely secondary to oral antibiotic, C. difficile has been negative Laurent catheter removed (12/02) (3) Small bowel obstruction: repeat CT scan showing more of enteritis/diarrheal state with no transition zone + stool output abdomen soft, nondistended, mildly tender LUQ/Left side previously but no guarding or peritonitis no leukocytosis Surgery was consulted, no surgical intervention for enteritis Continue with the conservative management Has been tolerating regular diet without any signs and/or symptoms of obstruction (4) Abdominal pain: Abdominal discomfort associated with nausea, vomiting KUB showed diffuse gaseous distention of small and large bowel could represent significant ileus. However, the stacked configuration of small bowel makes obstruction difficult to exclude. Stools negative for Cdiff, Salmonella, Shigella and Campylobacter CT abd/pelvi showed proximal small bowel is distended and fluid-filled. There are decompressed loops of distal small bowel in the right lower quadrant, and the appearance strongly suggests small bowel obstruction. Cholelithiasis within a distended gallbladder. Gallbladder u/s showed cholelithiasis within a distended gallbladder. There is no sonographic evidence of acute cholecystitis. Continued antiemetic and gentle hydration Repeat CT abd showed persistent multiple dilated loops of small bowel with air- fluid levels are noted in conjunction without a discrete transition point identified. Additionally, there is gaseous distention with circumferential wall thickening involving the sigmoid colon. No episode of vomiting for several days No indication for any surgical intervention as per surgery Denies any abdominal pain, nausea or vomiting Tolerating diet (5) Altered mental state: Possible related to metabolic encephalopathy secondary to sepsis. CT head showed no acute changes No focal neuro deficit Clinically improved significantly resolved (6) Renal insufficiency: Acute Kidney Injury Possible related to dehydration due to sepsis BUN: 42, Cr: 1.9, GFR: 29 on admission, Unsure of pt's baseline renal functions Received IVF Creatinine normalized , current Cr 0.5 Continue monitor renal functions Avoid nephrotoxic agents when possible (7) Hypokalemia: likely d/t hx of diarrhea and poor oral intake K 3.4 K replaced, cont. to monitor Plan to d/c on K supplement, recommend to re-check BMP in 1 week Hypomagnesemia Magnesium replaced as well Goal Mag >2 Cont. to monitor Recommend to d/c on Mag supplement, recommend to check level in 1 week (8) Sacral ulcer: Noted superficial sacral ulcer without surrounding erythema Wound care following Continue daily wound care (9) Seizure disorder: History seizure disorder. Unsure when last seizure activity Continue Keppra Continue seizure protocol (10) CAD (coronary artery disease): Cont. aspirin, Plavix Resume statin since d/c Dapto Denies any chest pain (11) Diabetes mellitus, type II: Metformin on hold Hba1c 7.1 Continue NovoLog sliding scale per protocol Continue monitor BS (12) HTN (hypertension): Hypotensive on admission Held lisinopril, HCTZ on admission Continue metoprolol with holding parameters Now BP more elevated, will restart small dose of lisinopril Continue monitor BP and titrate up her home medications as needed (13) Iron deficiency anemia: Hgb stable above 8 Continue iron supplement Monitor Hgb, transfuse if continue to drop -Recommend to recheck H&H in about a week, follow-up as outpatient Disposition Will be discharged to SNF- plan to be discharged from the hospital today, 12/04 Total Time Total Time Spent Total Time Spent (In Minutes): 35 Total Time Includes: Examination of the Patient, Discharge Planning and Medication Reconciliation Discharge Plan Discharge Items Patient Disposition: Transfer Jail Fac Reason For Visit: SEPSIS Discharge Diagnosis: Sepsis UTI BAHMAN Hypokalemia Hypomagnesemia Enteritis/concern for small bowel obstruction Activity: As commented below Non-emergency contact: Primary Care Provider Call non-emergency contact if: you have any medication questions Follow-up/Referrals: Omari Rios [Outside Practitioners] - Diet: Carb Consistent or DM2 Addtl Attending Provider Instructions: Recommend monitor blood pressure closely, titrate up her home medications as needed. Lisinopril and HCTZ were held on admission due to hypotension. Lisinopril at the lower dose was restarted. Recommend potassium and magnesium supplement, recheck BMP and magnesium level in a week. Patient also has history of anemia, recommend to recheck her H&H in about a week. Recommend eating smaller portions more frequently to avoid any nausea or abdominal discomfort. Patient's gabapentin was held during this admission, due to altered mental sta tus. If plan to restart, gabapentin needs to be titrated up again. Pending Studies at Discharge: No Stand-Alone Forms: My [facility] Skilled Items Patient informed of condition?: Yes DNR: No Discharge Level of Care: Skilled Communicable Disease: No Discharge Prognosis: Stable Lines: None Urinary Catheter: No Medications and DC Order Prescriptions: New lisinopril 10 mg Tablet 10 mg PO QAM 7 Days Qty: 7 RF: 0 potassium chloride 20 mEq tablet extended release 20 meq PO DAILY Qty: 5 RF: 0 magnesium oxide 400 mg magnesium tablet 400 mg PO DAILY Qty: 5 RF: 0 Continued multivitamin Tablet 1 tab PO QAM RF: 0 acetaminophen [Tylenol] 325 mg Tablet 650 mg PO QID PRN (Reason: Pain and Fever) RF: 0 polyethylene glycol 3350 17 gram Powder In Packet 17 g PO QAM RF: 0 clopidogrel [Plavix] 75 mg Tablet 75 mg PO QAM RF: 0 aspirin [Aspirin Low Dose] 81 mg Tablet,Delayed Release (Dr/Ec) 81 mg PO QAM RF: 0 simvastatin [Zocor] 40 mg Tablet 40 mg PO HS RF: 0 magnesium hydroxide [Milk of Magnesia] 400 mg/5 mL Suspension 30 ml PO UD PRN (Reason: Constipation) RF: 0 bisacodyl [Dulcolax (bisacodyl)] 10 mg Suppository 10 mg AL DAILY PRN (Reason: Constipation) RF: 0 pantoprazole [Protonix] 40 mg Tablet,Delayed Release (Dr/Ec) 40 mg PO QAM RF: 0 ferrous sulfate 325 mg (65 mg iron) Tablet 325 mg PO QAM RF: 0 metformin 1,000 mg Tablet 1,000 mg PO QAM RF: 0 metoprolol tartrate [Lopressor] 50 mg Tablet 100 mg PO QAM RF: 0 levetiracetam [Keppra] 750 mg Tablet 750 mg PO BID RF: 0 insulin lispro 100 unit/mL Solution 1 sliding scale dose SUBCUT USEASDIRECTD RF: 0 Lantus Solostar U-100 Insulin 100 unit/mL (3 mL) Insulin Pen 10 unit SUBCUT QAM RF: 0 Stress Formula with Zinc Tablet 1 tab PO QAM RF: 0 Insta-Glucose (with dextrin) 24 gram/31 gram Gel 1 ea PO UD PRN (Reason: Hypoglycemia) RF: 0 Changed docusate sodium 100 mg Capsule 100 mg PO QAM PRN (Reason: constipation) Qty: 0 RF: 0 Discontinued lisinopril 20 mg Tablet 20 mg PO QAM RF: 0 gabapentin 300 mg Capsule 300 mg PO TID RF: 0 hydrochlorothiazide 25 mg Tablet 25 mg PO QAM RF: 0 Discharge Orders: Discharge Order (Routine); Ordered 12/05/19 Ordered By: Benjamin Colin Admission Data Admit Date/Time: 11/20/19 16:22 Attending Provider: Benjamin Colin Admit Provider: Yakelin Macias Primary Care Provider: Quoc Azevedo Other Providers: Roberto Carlos, ; Yakelin Macias ; Melba Ray ; Harlan Barreto ; Clair Manzano
[2019-12-06] MEDS ORDERED: lisinopriL 10 MG TAB PO SCH (09:00)
== END 2019-12-05 14:50 | DRG 871 ==
LOC: ED 12:48 → 2S 16:22 → SUATTDRO 16:22 → 2S 16:54 → 2W 11-26 16:37